=== PATIENT | female | born 1940 | race Caucasian/White ===

== ENCOUNTER 2016-08-15 17:28 | Observation (INO) | payer MEDICARE ==
[2016-08-15] MEDS ORDERED: ASPIRIN 81 MG TABLET, CHEWABLE PO ONE (17:58)
--- NOTE | 2016-08-15 18:06 | ER Document Report ---
ED Medical Screen (RME) - General Chief Complaint: Arrhythmia Stated Complaint: CHEST HEAVINESS Mode of Arrival: Ambulatory Information source: Patient Notes: 75 y/o F presents to ED referred by pcp for generalized weakness. Reports hx of Afib. I have greeted and performed a rapid initial assessment of this patient. A comprehensive ED assessment and evaluation of the patient, analysis of test results and completion of the medical decision making process will be conducted by additional ED providers. TRAVEL OUTSIDE OF THE [place] IN LAST 30 DAYS: No - Related Data Allergies/Adverse Reactions: No Known Allergies Allergy (Verified 08/15/16 17:57) Past Medical History - Social History Chew tobacco use (# tins/day): No Frequency of alcohol use: None Drug Abuse: None - Past Medical History Cardiac Medical History: Reports: Hx Heart Attack - 2004, Hx Hypertension - medication Pulmonary Medical History: Denies: Hx Asthma Neurological Medical History: Denies: Hx Cerebrovascular Accident, Hx Seizures Endocrine Medical History: Reports: Hx Diabetes Mellitus Type 2 Renal/ Medical History: Denies: Hx Peritoneal Dialysis GI Medical History: Reports: Hx Hiatal Hernia. Denies: Hx Hepatitis, Hx Ulcer Infectious Medical History: Denies: Hx Hepatitis Past Surgical History: Reports: Hx Hysterectomy. Denies: Hx Mastectomy, Hx Open Heart Surgery, Hx Pacemaker - Immunizations Hx Diphtheria, Pertussis, Tetanus Vaccination: Yes Physical Exam - Vital signs Vitals: Temp Pulse Resp BP Pulse Ox 98.3 F 72 16 143/106 H 94 08/15/16 17:53 08/15/16 17:53 08/15/16 17:53 08/15/16 17:53 08/15/16 17:53 - General General appearance: Appears well, Alert In distress: None - Respiratory Respiratory status: No respiratory distress - Cardiovascular Pulses: Normal: Radial Normal capillary refill: Yes Course - Vital Signs Vital signs: Temp Pulse Resp BP Pulse Ox 98.3 F 72 16 143/106 H 94 08/15/16 17:53 08/15/16 17:53 08/15/16 17:53 08/15/16 17:53 08/15/16 17:53
[2016-08-15] MEDS ORDERED: DILTIAZEM HCL INJ 25 MG/5 ML VIAL IV ONE ×2 (18:15→19:27)
--- NOTE | 2016-08-15 18:19 | ER Document Report ---
ED Cardiac - General Chief Complaint: Arrhythmia Stated Complaint: CHEST HEAVINESS Time seen by provider: 18:16 Mode of Arrival: Ambulatory Information source: Patient TRAVEL OUTSIDE OF THE [place] IN LAST 30 DAYS: No - HPI Patient complains to provider of: Palpitations Was the onset of pain: Unknown Is the pain a: Chronic problem Quality of pain: None Pain level currently: Denies Chest pain precipitating factors: At Rest Positive cardiac history: Yes Associated symptoms: Lightheaded, Weakness Exacerbated by: Denies Relieved by: Nothing Similar symptoms previously: Yes Recently seen / treated by doctor: Yes Notes: Patient is a 75-year-old female who was sent to the emergency room from her primary care provider's office for complaints of rapid heart rate, patient has a history of atrial fibrillation, states yesterday evening she was feeling quite tired, with body aches and diaphoresis, denies any chest pain or shortness of breath, no nausea, vomiting or diarrhea, today she went to see her primary care provider who noted her to be in A. fib with RVR and center to the emergency room for further evaluation and treatment, patient denies missing any of her medications, she has been cutting back on her caffeine intake, she has not taken any bpdr-vce-tsvafva medications or supplements recently - Related Data Allergies/Adverse Reactions: No Known Allergies Allergy (Verified 08/15/16 17:57) Past Medical History - General Information source: Patient - Social History Smoking Status: Never Smoker Chew tobacco use (# tins/day): No Frequency of alcohol use: None Drug Abuse: None Family History: Reviewed & Not Pertinent Patient has suicidal ideation: No Patient has homicidal ideation: No - Past Medical History Cardiac Medical History: Reports: Hx Heart Attack - 2004, Hx Hypertension - medication Pulmonary Medical History: Denies: Hx Asthma Neurological Medical History: Denies: Hx Cerebrovascular Accident, Hx Seizures Endocrine Medical History: Reports: Hx Diabetes Mellitus Type 2 Renal/ Medical History: Denies: Hx Peritoneal Dialysis GI Medical History: Reports: Hx Hiatal Hernia. Denies: Hx Hepatitis, Hx Ulcer Infectious Medical History: Denies: Hx Hepatitis Past Surgical History: Reports: Hx Hysterectomy. Denies: Hx Mastectomy, Hx Open Heart Surgery, Hx Pacemaker - Immunizations Hx Diphtheria, Pertussis, Tetanus Vaccination: Yes Review of Systems - Review of Systems Constitutional: Weakness EENT: No symptoms reported Cardiovascular: See HPI Respiratory: No symptoms reported Gastrointestinal: No symptoms reported Genitourinary: No symptoms reported Female Genitourinary: No symptoms reported Musculoskeletal: No symptoms reported Skin: No symptoms reported Hematologic/Lymphatic: No symptoms reported Neurological/Psychological: No symptoms reported -: Yes All other systems reviewed and negative Physical Exam - Vital signs Vitals: Temp Pulse Resp BP Pulse Ox 98.3 F 72 16 143/106 H 94 08/15/16 17:53 08/15/16 17:53 08/15/16 17:53 08/15/16 17:53 08/15/16 17:53 Interpretation: Normal - General General appearance: Appears well, Alert - HEENT Head: Normocephalic, Atraumatic Eyes: Normal Pupils: PERRL - Respiratory Respiratory status: No respiratory distress Chest status: Nontender Breath sounds: Normal Chest palpation: Normal - Cardiovascular Rhythm: Irregularly irregular, Tachycardia Heart sounds: Normal auscultation Murmur: No - Abdominal Inspection: Normal Distension: No distension Bowel sounds: Normal Tenderness: Nontender Organomegaly: No organomegaly - Back Back: Normal, Nontender - Extremities General upper extremity: Normal inspection, Nontender, Normal color, Normal ROM , Normal temperature General lower extremity: Normal inspection, Nontender, Normal color, Normal ROM , Normal temperature, Normal weight bearing. No: Tramaine's sign - Neurological Neuro grossly intact: Yes Cognition: Normal Orientation: AAOx4 [place] Coma Scale Eye Opening: Spontaneous Leanne Coma Scale Verbal: Oriented Leanne Coma Scale Motor: Obeys Commands Leanne Coma Scale Total: 15 Speech: Normal Motor strength normal: LUE, RUE, LLE, RLE Sensory: Normal - Psychological Associated symptoms: Normal affect, Normal mood - Skin Skin Temperature: Warm Skin Moisture: Dry Skin Color: Normal Course - Re-evaluation Re-evalutation: 08/15/16 022:59 Patient resting comfortably, has no complaints at present time, she was placed on a Cardizem drip to control atrial fibrillation with RVR, and discussed with the hospitalist who agrees to admit for further evaluation and treatment - Vital Signs Vital signs: Temp Pulse Resp BP Pulse Ox 98.3 F 72 12 147/98 H 95 08/15/16 17:53 08/15/16 17:53 08/16/16 02:30 08/16/16 02:30 08/16/16 02:30 - Laboratory Result Diagrams: 08/15/16 18:15 08/15/16 18:15 Laboratory results interpreted by me: 08/15/16 08/15/16 08/15/16 18:15 18:15 18:15 RDW 15.1 H Seg Neutrophils % 87.3 H Lymphocytes % 8.5 L Glucose 211 H TSH 0.45 L Urine Protein Urine Glucose (UA) Urine Ketones 08/15/16 19:00 RDW Seg Neutrophils % Lymphocytes % Glucose TSH Urine Protein >=500 H Urine Glucose (UA) 50 H Urine Ketones TRACE H - Diagnostic Test Radiology reviewed: Image reviewed, Reports reviewed - EKG Interpretation by Me Rate: Tachycardia Rhythm: A.Fib - Transfer of Care Care transferred to following provider: Dr. Cabrera Critical Care Note - Critical Care Note Total time excluding time spent on procedures (mins): 60 Comments: Patient arrived in atrial fibrillation with RVR at a rate in the 150s, requiring multiple interventions, eventually placed on a Cardizem drip and admitted to hospitalist Discharge - Discharge Clinical Impression: Atrial fibrillation with RVR Condition: Fair Disposition: ADMITTED INPATIENT Admitting Provider: Hospitalist Unit Admitted: [facility]
[2016-08-15 18:37] LABS: ABSOLUTE LYMPHOCYTES (AUTO) 0.6 10^3/uL (0.5-4.7); ABSOLUTE MONOCYTES (AUTO) 0.3 10^3/uL (0.1-1.4); ABSOLUTE NEUT (AUTO) 6.2 10^3/uL (1.7-8.2); BASOPHILS % (AUTO) 0.1 % (0-2); HEMATOCRIT 40.4 % (36.0-47.0); HEMOGLOBIN 13.1 g/dL (12.0-15.5); HGB HCT DIFFERENCE -1.1; LYMPHOCYTES % (AUTO) 8.5 % (13-45); MEAN CORPUSCULAR HEMOGLOBIN 27.5 pg (27.0-33.4); MEAN CORPUSCULAR HGB CONC 32.5 g/dL (32.0-36.0); MEAN CORPUSCULAR VOLUME 85 fl (80-97); MONOCYTES % (AUTO) 4.1 % (3-13); RED BLOOD COUNT 4.77 10^6/uL (3.72-5.28); RED CELL DISTRIBUTION WIDTH 15.1 % (11.5-14.0); SEGMENTED NEUTROPHILS % (AUTO) 87.3 % (42-78); WHITE BLOOD COUNT 7.1 10^3/uL (4.0-10.5)
[2016-08-15 18:41] LABS: ALANINE AMINOTRANSFERASE 26 U/L (9-52); ALBUMIN 4.6 g/dL (3.5-5.0); ALKALINE PHOSPHATASE 103 U/L (38-126); ANION GAP 14 (5-19); ASPARTATE AMINO TRANSFERASE 20 U/L (14-36); BILIRUBIN,TOTAL 1.2 mg/dL (0.2-1.3); BLOOD UREA NITROGEN 19 mg/dL (7-20); CALCIUM 9.7 mg/dL (8.4-10.2); CARBON DIOXIDE 25 mmol/L (22-30); CHLORIDE 99 mmol/L (98-107); CREATINE KINASE 38 U/L (30-135); CREATININE RESULT 0.85 mg/dL (0.52-1.25); GLUCOSE 211 mg/dL (75-110); POTASSIUM 4.3 mmol/L (3.6-5.0); TOTAL PROTEIN 7.9 g/dL (6.3-8.2)
[2016-08-15 18:42] LABS: PROTHROMBIN TIME 13.6 SEC (11.4-15.4)
[2016-08-15] MEDS ORDERED: NORMAL SALINE 1000 ML 1,000 ML IV PRN ×2 (18:48→20:58)
[2016-08-15 18:53] LABS: CREATINE KINASE MB 0.49 ng/mL (<4.55)
[2016-08-15 18:56] LABS: TROPONIN I < 0.012 ng/mL
[2016-08-15 19:21] LABS: APPEARANCE,URINE SLIGHTLY-CLOUDY; BILIRUBIN,URINE NEGATIVE (NEGATIVE); GLUCOSE, URINE 50 mg/dL (NEGATIVE); KETONES,URINE TRACE mg/dL (NEGATIVE); LEUKOCYTE ESTERASE,URINE NEGATIVE (NEGATIVE); NITRITE,URINE NEGATIVE (NEGATIVE); PROTEIN,URINE >=500 mg/dL (NEGATIVE); URINE SPECIFIC GRAVITY 1.023; UROBILINOGEN,URINE NEGATIVE mg/dL (<2.0)
[2016-08-15] MEDS ORDERED: AMIODARONE HCL 200 MG TABLET PO ONE ×2 (20:27→20:28)
--- NOTE | 2016-08-15 21:05 | EKG REPORT ---
SEVERITY:- ABNORMAL ECG - ATRIAL FIBRILLATION LVH WITH SECONDARY REPOLARIZATION ABNORMALITY BORDERLINE PROLONGED QT INTERVAL : Confirmed by: Immanuel Valdivia MD 15-Aug-2016 21:04:42
[2016-08-15] MEDS ORDERED: DILTIAZEM HCL/D5W 125 ML IV PRN (21:36)
[2016-08-15 22:01] LABS: ADD ON TESTING BLD IN LAB ACKNOWLEDGE
[2016-08-15 22:23] LABS: MAGNESIUM 1.6 mg/dL (1.6-2.3)
[2016-08-15] MEDS ORDERED: GLUCAGON,HUMAN RECOMB 1 MG INJ IM PRN (23:14)
[2016-08-15] MEDS ORDERED: DEXTROSE 50%-WATER 25 GM/50 ML DISP.SYRIN IV PRN ×2 (23:14)
[2016-08-15] MEDS ORDERED: DEXTROSE 40% GEL 15 GM TUBE PO PRN ×2 (23:14)
[2016-08-15] MEDS ORDERED: INSULIN LISPRO 100 UNIT/ML 3 ML VIAL SUBCUT PRN (23:14)
[2016-08-15] MEDS ORDERED: ACETAMINOPHEN 325 MG TABLET PO PRN (23:19)
--- NOTE | 2016-08-15 23:37 | PDOC H&P ---
History of Present Illness Admission Date/PCP: 08/15/16 22:31 Estela Bahena Patient complains of: Palpitations History of Present Illness: MEGAN JUNG is a 75 year old female with known atrial fibrillation , compliant with her medications other than having run out of Plavix approximately a week ago, who presents to the emergency room for evaluation of above complaint. Starting approximately 24 hours ago, patient has noted palpitations with a rapid heart rate. Increased fatigue along with mild sweating and body aches. However, no chest pain per se or shortness of breath. No nausea vomiting or diarrhea. Went to her primary care provider's office today. Rapid irregular heartbeat was noted and patient was directed to come to the emergency room for evaluation. Last weekend, she was starting on a tapering dose of prednisone along with Tessalon Perles and antibiotic medication for "bronchitis." She suffered an [place] in 2004. She's had 3 stents placed with the last in 2012. No underlying congestive heart failure. No history of pulmonary embolus or DVT. Her systemic anticoagulation was stopped some time ago by her physician. Patient uncertain as to exactly why this was stopped. Patient has been discussed with emergency room physician who evaluated the patient. Was given her daily dose of amiodarone in the emergency room, but rapid ventricular rate has persisted. Has been started on Cardizem drip by emergency room physician. Laboratory results are listed in [facility] and are reviewed. X-ray summary results are listed below, with full report(s) reviewed. . EKG reviewed. And compared to a tracing from 06/17/2016. Social history/personal habits: . Because does not live with her . Lives with daughter. 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 No use of alcohol tobacco or illicit drugs. Allergies/adverse reactions NKDA. Home medications Home medications initially autopopulated into [facility] may not accurately reflect patient's true medications, dosages, and/or frequencies. Unfortunately, patient uncertain of medications/dosages/frequencies. Order has been entered for staff to contact family, outpatient physician, and/or pharmacy to more accurately determine medications, dosages, and frequencies and to contact physician when that has been accomplished. REVIEW OF SYSTEMS: Constitutional: See history and present illness. Eyes: Wears glasses. ENT: No swallowing problems or complaints. Partial hearing loss. Pulmonary: No current complaints. Cardiovascular: See history and present illness. Gastrointestinal: No current complaints, including nausea or vomiting. Skin: No current complaints, including rashes. Hematologic: Easy bruising. Neurologic: No current complaints, including numbness or tingling. Musculoskeletal: Joint pain from arthritis. Psychiatric: Mild Anxiety depression; denies suicidal or homicidal ideation. Endocrine: No current complaints, including polyuria. Genitourinary: No current complaints, including dysuria. PHYSICAL EXAMINATION: 5 feet 4 inches tall. 73.5 kg. BMI 27.8 kg/m. Temperature 98.3. Blood pressure 151/97. Pulse 125 and slightly irregular. Patient currently on Cardizem drip at 5 mg per hour. 95% saturation on room air. Respirations are 16 and unlabored. Slightly Overweight otherwise well-developed elderly female appearing approximately her stated age. Pleasant awake alert and cooperative. No obvious distress other than perhaps mildly anxious. 2 daughters are present at her side; patient approves. Skin is warm and dry. No grossly obvious evidence of rash in areas of skin examined. No subcutaneous nodules palpated. ENT: Hearing grossly normal to normal conversation. Tongue midline on protrusion pink and slightly tacky. Eyes: No scleral icterus. Pupils equal and reactive to light at 4 mm. Gratis conjunctivae. Neck is supple and nontender to gentle active range of motion and palpation. Midline trachea. No palpable thyroid nodule mass enlargement or tenderness. Lymphatic: No palpable cervical or clavicular nodes. Neck and lymphatic exams limited by patient body habitus. Psychiatric: Reasonable insight into acute and chronic medical issues. Oriented to time location and why here. Lungs: Auscultation reveals clear and equal breath sounds bilaterally. No use of accessory respiratory muscles. Cardiovascular: Heart slightly irregular rate and rhythm, without gallop murmur or rub. No carotid or abdominal aortic bruits. No ankle or pedal edema. Faintly palpable dorsalis pedis pulses. Abdomen: soft, , slightly distended nontender with positive bowel sounds. Unable to adequately evaluate abdomen for masses or organomegaly due to distention. Extremities: Feet are warm and dry. No calf tenderness to compression. No grossly obvious visual evidence of calf swelling. Gentle manipulation of lower extremities fails to reveal any obvious evidence of injury or instability to knees hips or ankles. Neurologic: Moves upper extremities grossly normally. Patellar reflexes absent. Absent Babinski. Light touch is intact at feet. Dorsiflexion and plantarflexion of feet 5 / 5 and symmetric. Past Medical History Cardiac Medical History: Reports: Atrial Fibrillation, Myocardial Infarction - 2005, Hyperlipidema, Hypertension - medication Denies: DVT, Pulmonary Embolism Pulmonary Medical History: Denies: Asthma Neurological Medical History: Denies: Hemorrhagic CVA, Ischemic CVA, Seizures Endocrine Medical History: Reports: Diabetes Mellitus Type 2 Denies: Hyperthyroidism, Hypothyroidism GI Medical History: Reports: Hiatal Hernia Denies: Cirrhosis, Hepatitis Psychiatric Medical History: Reports: Depression, General Anxiety Disorder Denies: Alcohol Dependency, Substance Abuse, Tobacco Dependency Hematology: Reports: Anemia - no current meds Denies: Sickle Cell Disease Infectious Medical History: Denies: Hepatitis B, Hepatitis C Past Surgical History Past Surgical History: Reports: Hysterectomy Denies: Amputation, Mastectomy, Pacemaker Social History Information Source: Patient, Emergency Med Personnel, [facility] Records Lives with: Family Smoking Status: Never Smoker Frequency of Alcohol Use: None Drugs: None - Advance Directive Resuscitation Status: Full Code Surrogate healthcare decision maker:: Children Family History Family History: Reviewed & Not Pertinent Parental Family History Reviewed: Yes Children Family History Reviewed: Yes Sibling(s) Family History Reviewed.: NA Medication/Allergy Home Medications: Acetaminophen/Diphenhydramine [Tylenol Pm Ex-Strength Caplet] 2 each PO QHS 01/01 Alendronate Sodium [Fosamax] 70 mg PO .ONCE A WEEK 12/24/15 Amiodarone HCl [Cordarone 200 mg Tablet] 2 tab PO BID 12/24/15 Atorvastatin Calcium [Lipitor 80 mg Tablet] 80 mg PO DAILY 12/24/15 Besifloxacin HCl [Besivance 0.6% Oph Susp 5 ml] 1 drop OP ASDIR 12/24/15 Clopidogrel Bisulfate [Clopidogrel] 75 mg PO DAILY 12/24/15 Difluprednate [Durezol] 1 drop OP ASDIR 12/24/15 Fluoxetine HCl [Prozac] 40 mg PO DAILY 12/24/15 Gabapentin [Neurontin 100 mg Capsule] 100 mg PO QAM 12/24/15 Hydrocortisone [Proctozone-Hc] 30 gm RC QAM 12/24/15 Lisinopril [Prinivil] 20 mg PO QAM 12/24/15 Lorazepam [Ativan 0.5 mg Tablet] 0.5 mg PO TID PRN 12/24/15 Magnesium Oxide [Magnesium] 400 mg PO BID 12/24/15 Meclizine HCl 25 mg PO BID PRN 12/24/15 Melatonin 5 mg PO QHS PRN 12/24/15 Metformin HCl [Glucophage] 1,000 mg PO BID 12/24/15 Multivitamin [Multivitamins] 1 each PO DAILY 12/24/15 Nepafenac [Ilevro] 1 drop OP ASDIR 12/24/15 Nifedipine [Adalat cc] 30 mg PO QAM 12/24/15 [place]-3 Fatty Acids/Fish Oil [Fish Oil 1,000 Mg Capsule] 8 each PO DAILY Spironolactone [Aldactone 25 mg Tablet] 12.5 mg PO QAM 12/24/15 Tramadol HCl/Acetaminophen [Tramadol-Acetaminophn 37.5-325] 1 each PO .Q4-6H PRN 12/24/15 Cephalexin Monohydrate [Keflex 500 mg Capsule] 500 mg PO BID #14 capsule Allergies/Adverse Reactions: No Known Allergies Allergy (Verified 08/15/16 17:57) Physical Exam Vital Signs: Temp Pulse Resp BP Pulse Ox 98.3 F 72 21 H 151/97 H 94 08/15/16 17:53 08/15/16 17:53 08/15/16 22:33 08/15/16 22:33 08/15/16 22:33 Results Impressions: Chest X-Ray 08/15/16 18:00 IMPRESSION: NO ACUTE CARDIOPULMONARY PROCESS. NO SIGNIFICANT CHANGE FROM PRIOR STUDY. Assessment & Plan - Diagnosis (1) Atrial fibrillation with RVR Is this a current diagnosis for this admission?: YesPlan: Cardizem drip. Serial troponins. Free T3 and free T4, with TSH slightly decreased. Cardiology consult at discretion of daytime hospitalist team. Have encouraged patient to notify staff should her chest pain recur. I have strongly encouraged patient not to get out of bed without notifying staff , to avoid a fall with injury. Knee high SCDs for DVT prophylaxis, along with subcutaneous heparin. Impression and plans were discussed with patient, and daughters, all of whom concur. Time spent in evaluation and management of patient: 53 minutes. (2) Myalgia Is this a current diagnosis for this admission?: YesPlan: States she was told a day or 2 ago that she probably has the flu although no specific test for same. With her myalgias and diaphoresis, will check rapid flu test. (3) Diabetes mellitus type 2 in nonobese Is this a current diagnosis for this admission?: YesPlan: Cardiac diabetic diet. Accu-Cheks with Appropriate sliding scale coverage. Resume home medications as appropriate once these have been determined and reviewed. (4) HTN (hypertension) Qualifiers: Hypertension type: essential hypertension Qualified Code(s): I10 - Essential (primary) hypertension Is this a current diagnosis for this admission?: YesPlan: Resume home medications as appropriate once these have been determined and reviewed. (5) Hyperlipidemia Qualifiers: Hyperlipidemia type: pure hypercholesterolemia Qualified Code(s): E78.00 - Pure hypercholesterolemia, unspecified; E78.0 - Pure hypercholesterolemia Is this a current diagnosis for this admission?: YesPlan: Resume home medications as appropriate once these have been determined and reviewed. - Inpatient Certification Based on my medical assessment, after consideration of the patient's comorbidities, presenting symptoms, or acuity I expect that the services needed warrant INPATIENT care.: Yes I certify that my determination is in accordance with my understanding of Medicare's requirements for reasonable and necessary INPATIENT services [42 CFR 412.3e].: Yes Medical Necessity: Need Close Monitoring Due to Risk of Patient Decompensation, Need For Continuous Telemetry Monitoring, Risk of Complication if Not Cared For in Hospital, Risk of Diagnosis Which Will Require Inpatient Eval/Care/Monitoring Post Hospital Care: D/C or Transfer Summary
[2016-08-16] MEDS: CLOPIDOGREL BISULFATE 75 MG TABLET PO SCH ×2 (00:56→10:01)
[2016-08-16 01:22] LABS: FREE T3 3.16 pg/mL (2.77-5.27)
[2016-08-16] MEDS ORDERED: OSELTAMIVIR PHOSPHATE 75 MG CAPSULE PO ONE (02:30)
[2016-08-16] MEDS: DILTIAZEM HCL/D5W 125 MG/125 ML RTUINJ IV PRN ×2 (07:36→15:01)
[2016-08-16] MEDS ORDERED: LORAZEPAM 0.5 MG TABLET PO PRN (08:11)
[2016-08-16] MEDS ORDERED: TRAMADOL HCL 50 MG TABLET PO PRN (08:12)
[2016-08-16] MEDS ORDERED: (PENDING PHARMACY ID) (Difluprednate [Durezol] 1 DROP) OP SCH (08:15)
[2016-08-16] MEDS ORDERED: BESIFLOXACIN HCL 0.6% OPH SUSP 5 ML BOTTLE OP SCH (08:15)
[2016-08-16] MEDS ORDERED: (PENDING PHARMACY ID) (Nepafenac [Ilevro] 1 DROP) OP SCH (08:15)
[2016-08-16] MEDS: ENOXAPARIN SODIUM INJ 40 MG/0.4 ML DISP.SYRIN SUBCUT SCH (09:05)
[2016-08-16] MEDS ORDERED: LISINOPRIL 10 MG TABLET PO ONE (09:30)
[2016-08-16] MEDS ORDERED: GABAPENTIN 100 MG CAPSULE PO ONE (09:30)
[2016-08-16] MEDS ORDERED: SPIRONOLACTONE 25 MG TABLET PO ONE (09:30)
[2016-08-16] MEDS: METFORMIN HCL 500 MG TABLET PO SCH ×2 (09:56→18:18)
[2016-08-16] MEDS: AMIODARONE HCL 200 MG TABLET PO SCH ×2 (09:58→18:18)
[2016-08-16] MEDS: OSELTAMIVIR PHOSPHATE 75 MG CAPSULE PO SCH ×2 (09:59→18:18)
[2016-08-16] MEDS: MAGNESIUM OXIDE 400 MG TABLET PO SCH ×2 (10:00→18:18)
[2016-08-16] MEDS: FLUOXETINE HCL 20 MG CAPSULE PO SCH (10:00)
[2016-08-16] MEDS ORDERED: CLOPIDOGREL BISULFATE 75 MG TABLET PO SCH (10:00)
[2016-08-16] MEDS: NIFEDIPINE 30 MG TAB.ER.24 PO SCH (11:29)
--- NOTE | 2016-08-16 11:56 | Physician Advisory Note ---
Physician Advisor ProgressNote .: Pursuant to the plan for [facility], I have reviewed the medical record for this patient. Physician Advisor Statement: Afib RVR should be Outpt Obs until they prove they can't be converted shortly to po med & sent home after 1MN. CK
[2016-08-16] MEDS ORDERED: DILTIAZEM HCL 60 MG TABLET PO ONE (13:00)
--- NOTE | 2016-08-16 14:47 | PDOC PROGRESS REPORT ---
Subjective Progress Note for:: 08/16/16 Subjective:: Patient is seen on morning rounds. She is resting comfortably in bed. She denies any chest pain, shortness of breath or dyspnea. She has occasional feelings of palpitations. She has a nonproductive cough at the present time. She denies any nausea, vomiting, or diarrhea. She states she has been sick at home for the last 2 weeks with upper respiratory like symptoms. She was treated with antibiotics by her primary care provider. She was noted here last night to be positive for influenza a. She denies any body aches or fever at the present time. She states she is feeling much better than she did when she came in. Rest of review of systems are negative Physical Exam Vital Signs: Temp Pulse Resp BP Pulse Ox 97.9 F 72 30 H 140/84 H 87 L 08/16/16 12:33 08/15/16 17:53 08/16/16 12:33 08/16/16 12:33 08/16/16 12:33 General appearance: PRESENT: no acute distress, well-developed, well-nourished Head exam: PRESENT: atraumatic, normocephalic Eye exam: PRESENT: conjunctiva pink, EOMI, PERRLA. ABSENT: scleral icterus Ear exam: PRESENT: normal external ear exam Mouth exam: PRESENT: moist, tongue midline Neck exam: ABSENT: carotid bruit, JVD, lymphadenopathy, thyromegaly Respiratory exam: PRESENT: clear to auscultation deo. ABSENT: rales, rhonchi, wheezes Cardiovascular exam: PRESENT: irregular rhythm, +S1, +S2 Pulses: PRESENT: normal dorsalis pedis pul Vascular exam: PRESENT: normal capillary refill GI/Abdominal exam: PRESENT: normal bowel sounds, soft. ABSENT: distended, guarding, mass, organolmegaly, rebound, tenderness Extremities exam: PRESENT: full ROM. ABSENT: calf tenderness, clubbing, pedal edema Neurological exam: PRESENT: alert, awake, oriented to person, oriented to place , oriented to time, oriented to situation, CN II-XII grossly intact. ABSENT: motor sensory deficit Psychiatric exam: PRESENT: appropriate affect, normal mood. ABSENT: homicidal ideation, suicidal ideation Skin exam: PRESENT: dry, intact, warm. ABSENT: cyanosis, rash Results Laboratory Results: 08/16/16 00:44 Free T4 1.08 Free T3 pg/mL 3.16 08/16/16 08/16/16 00:44 06:32 Troponin I < 0.012 < 0.012 Impressions: Chest X-Ray 08/15/16 18:00 IMPRESSION: NO ACUTE CARDIOPULMONARY PROCESS. NO SIGNIFICANT CHANGE FROM PRIOR STUDY. Assessment & Plan - Diagnosis (1) Atrial fibrillation with RVR Is this a current diagnosis for this admission?: YesPlan: Patient is presently rate controlled on Cardizem drip. She takes amiodarone orally. She is a known history of atrial fibrillation. We will start Cardizem by mouth and transitioning her off the IV Cardizem. (2) Influenza A Is this a current diagnosis for this admission?: YesPlan: She was started on Tamiflu by ER provider. It's unclear when her symptoms actually began low however. (3) Diabetes mellitus type 2 in nonobese Is this a current diagnosis for this admission?: YesPlan: Continue home medication and sliding scale coverage (4) CAD (coronary artery disease) Qualifiers: Coronary Disease-Associated Artery/Lesion type: telida artery [place] vs. transplanted heart: telida heart Associated angina: without angina Qualified Code(s): I25.10 - Atherosclerotic heart disease of telida coronary artery without angina pectoris Is this a current diagnosis for this admission?: YesPlan: Continue Plavix and home medications. (5) Myalgia Is this a current diagnosis for this admission?: YesPlan: Secondary to influenza a (6) HTN (hypertension) Qualifiers: Hypertension type: essential hypertension Qualified Code(s): I10 - Essential (primary) hypertension Is this a current diagnosis for this admission?: YesPlan: Continue home medication. (7) Hyperlipidemia Qualifiers: Hyperlipidemia type: pure hypercholesterolemia Qualified Code(s): E78.00 - Pure hypercholesterolemia, unspecified; E78.0 - Pure hypercholesterolemia Is this a current diagnosis for this admission?: YesPlan: Continue statin - Time Time Spent with patient: 25-34 minutes Critical Time spent with patient: 15-24 minutes Medications reviewed and adjusted accordingly: Yes Anticipated discharge: Home Within: within 24 hours
[2016-08-16] MEDS: DILTIAZEM HCL 60 MG TABLET PO SCH (18:20)
[2016-08-16] MEDS ORDERED: ATORVASTATIN CALCIUM 80 MG TABLET PO SCH (22:00)
[2016-08-17] MEDS: DILTIAZEM HCL 60 MG TABLET PO SCH ×3 (00:08→11:59)
[2016-08-17] MEDS ORDERED: ONDANSETRON HCL INJ/PF 4 MG/2 ML SDV IV PRN (02:38)
[2016-08-17] MEDS ORDERED: LISINOPRIL 10 MG TABLET PO SCH (08:00)
[2016-08-17] MEDS ORDERED: (PENDING PHARMACY ID) (Lisinopril [Prinivil] 20 MG) PO SCH (08:00)
[2016-08-17] MEDS ORDERED: SPIRONOLACTONE 25 MG TABLET PO SCH (08:00)
[2016-08-17] MEDS ORDERED: GABAPENTIN 100 MG CAPSULE PO SCH (08:00)
--- NOTE | 2016-08-17 08:30 | EKG REPORT ---
SEVERITY:- ABNORMAL ECG - ECTOPIC ATRIAL RHYTHM LEFT AXIS DEVIATION LVH WITH SECONDARY REPOLARIZATION ABNORMALITY PROLONGED QT INTERVAL : Confirmed by: Immanuel Valdivia MD 17-Aug-2016 08:30:21
[2016-08-17] MEDS: ENOXAPARIN SODIUM INJ 40 MG/0.4 ML DISP.SYRIN SUBCUT SCH (09:39)
[2016-08-17] MEDS: NIFEDIPINE 30 MG TAB.ER.24 PO SCH (10:41)
[2016-08-17] MEDS: METFORMIN HCL 500 MG TABLET PO SCH (10:41)
[2016-08-17] MEDS: FLUOXETINE HCL 20 MG CAPSULE PO SCH (10:42)
[2016-08-17] MEDS: AMIODARONE HCL 200 MG TABLET PO SCH (10:42)
[2016-08-17] MEDS: MAGNESIUM OXIDE 400 MG TABLET PO SCH (10:43)
[2016-08-17 12:13] VITALS: BP 128/92
--- NOTE | 2016-08-17 17:32 | PDOC DISCHARGE SUMMARY ---
General - Admit/Disc Date/PCP Admission Date/Primary Care Provider: 08/15/16 23:19 RAIN MARS PA-C Discharge Date: 08/17/16 - Discharge Diagnosis (1) Atrial fibrillation with RVR Is this a current diagnosis for this admission?: YesSummary: Patient is now rate controlled. She has a history of chronic A. fib. She is on Plavix and aspirin. (2) Influenza A Is this a current diagnosis for this admission?: YesSummary: Patient symptoms began over 5 days ago we'll therefore stop her Tamiflu at this time. (3) Diabetes mellitus type 2 in nonobese Is this a current diagnosis for this admission?: YesSummary: Continue current medications (4) CAD (coronary artery disease) Is this a current diagnosis for this admission?: YesSummary: Continue current home meds (5) Myalgia Is this a current diagnosis for this admission?: YesSummary: Resolved (6) HTN (hypertension) Is this a current diagnosis for this admission?: YesSummary: Continue current medications (7) Hyperlipidemia Is this a current diagnosis for this admission?: YesSummary: Continue statin - Additional Information Resuscitation Status: Full Code Discharge Diet: Cardiac Discharge Activity: Activity As Tolerated, Balance Activity w/Rest Home Medications: Atorvastatin Calcium [Lipitor 80 mg Tablet] 80 mg PO DAILY 08/16/16 Benzonatate [Tessalon Perle 100 mg Capsule] 100 mg PO Q8HP PRN 08/16/16 Hydroxyzine HCl [Atarax 10 mg Tablet] 10 mg PO Q6HP PRN 08/16/16 Nitroglycerin [Nitrostat] 0.4 mg SL ASDIR PRN 08/16/16 Prednisone [Deltasone 10 mg Tablet] 10 mg PO Q2D 08/16/16 Acetaminophen [Tylenol 325 mg Tablet] 650 mg PO Q4HP PRN tablet 08/17/16 Amiodarone HCl [Cordarone 200 mg Tablet] 400 mg PO BID tablet 08/17/16 Besifloxacin HCl [Besivance 0.6% Oph Susp 5 ml] 1 drop OP .CLARIFY bottle 08/17 Clopidogrel Bisulfate [Plavix 75 mg Tablet] 75 mg PO DAILY tablet 08/17/16 Difluprednate [Durezol] 1 drop OP .CLARIFY 08/17/16 Fluoxetine HCl [Prozac 20 mg Capsule] 40 mg PO DAILY capsule 08/17/16 Gabapentin [Neurontin 100 mg Capsule] 100 mg PO QAM capsule 08/17/16 Lisinopril [Prinivil 10 mg Tablet] 20 mg PO QAM tablet 08/17/16 Nepafenac [Ilevro] 1 drop OP .CLARIFY 08/17/16 Nifedipine [Procardia XL 30 mg Tablet] 30 mg PO DAILY tab.er.24 08/17/16 Spironolactone [Aldactone 25 mg Tablet] 12.5 mg PO QAM tablet 08/17/16 History of Present Illness Patient complains of: Fever, and palpitations History of Present Illness: MEGAN JUNG is a 75 year old female with known chronic atrial fibrillation compliant with her medications since the emergency room with increasing palpitations and tachycardia. She was referred to the ER by her primary care provider. She was found to be in nature fibrillation with a heart rate of 130. She was started on Cardizem IV. She was referred to the hospitalist service for admission. She complained of productive cough myalgias and chills for the last 1 week. She had been given azithromycin by her primary care provider she did not have of her symptoms. Influenza swab in the emergency room because showed positive for influenza A. Hospital Course Hospital Course: Patient was admitted to [facility] on telemetry. She was started on oral Cardizem she continued to be rate controlled. IV Cardizem was discontinued. She was started on Tamiflu in the ER. Patient no longer has any symptoms. Her symptoms and she started the week before will therefore discontinue the Tamiflu at this time. Patient feels ready for discharge she'll continue her oral amiodarone and follow-up with her dietetics professor Dr. Bahena for any further problems.. Physical Exam Vital Signs: Temp Pulse Resp BP Pulse Ox 97.9 F 56 L 16 128/92 H 98 08/17/16 12:12 08/17/16 12:12 08/17/16 12:12 08/17/16 12:12 08/17/16 12:12 Intake & Output 08/16/16 08/17/16 08/18/16 06:59 06:59 06:59 Intake Total 125 Output Total 100 Balance 25 Weight 75.5 kg General appearance: PRESENT: no acute distress, well-developed, well-nourished Head exam: PRESENT: atraumatic, normocephalic Eye exam: PRESENT: conjunctiva pink, EOMI, PERRLA. ABSENT: scleral icterus Ear exam: PRESENT: normal external ear exam Mouth exam: PRESENT: moist, tongue midline Respiratory exam: PRESENT: clear to auscultation deo. ABSENT: rales, rhonchi, wheezes Cardiovascular exam: PRESENT: irregular rhythm, +S1, +S2 Pulses: PRESENT: normal dorsalis pedis pul Vascular exam: PRESENT: normal capillary refill GI/Abdominal exam: PRESENT: normal bowel sounds, soft. ABSENT: distended, guarding, mass, organolmegaly, rebound, tenderness Rectal exam: PRESENT: deferred Extremities exam: PRESENT: full ROM. ABSENT: calf tenderness, clubbing, pedal edema Neurological exam: PRESENT: alert, awake, oriented to person, oriented to place , oriented to time, oriented to situation, CN II-XII grossly intact. ABSENT: motor sensory deficit Results Laboratory Results: 08/16/16 08/16/16 00:44 06:32 Troponin I < 0.012 < 0.012 Impressions: Chest X-Ray 08/15/16 18:00 IMPRESSION: NO ACUTE CARDIOPULMONARY PROCESS. NO SIGNIFICANT CHANGE FROM PRIOR STUDY. Qualifiers PATEINT BEING DISCHARGED WITH ANY OF THE FOLLOWING DIAGNOSIS?: No Plan Discharge Plan: Home with family Time Spent: Less than 30 Minutes
== END 2016-08-17 12:45 | disposition home or self-care (01) ==
LOC: ER 17:28 → EH 22:31 → UNDOADMIN 22:31 → EH 23:19 → INTOOBSV 23:19 → 3S 08-16 18:50
PROVIDERS: ADMIT Family Medicine; ATTEND Family Medicine
PROC: 3E033GC Introduction of Other Therapeutic Substance into Peripheral Vein, Percutaneous Approach (ICD-10-PCS; principal; 2016-08-15)
PROC: 3E033GC Introduction of Other Therapeutic Substance into Peripheral Vein, Percutaneous Approach (ICD-10-PCS; 2016-08-15)
DX: I48.2 Chronic atrial fibrillation (principal); J11.1 Influenza due to unidentified influenza virus with other respiratory manifestations; E11.9 Type 2 diabetes mellitus without complications; I25.10 Atherosclerotic heart disease of native coronary artery without angina pectoris; M79.1 Myalgia; I10 Essential (primary) hypertension; E78.5 Hyperlipidemia, unspecified; I25.2 Old myocardial infarction; Z95.5 Presence of coronary angioplasty implant and graft
CPT/HCPCS: 93005 ×2; 96376; 99291; 96374; 36415 ×2; 84439; 82553; 82962 ×2; 82550; 83735; 84443; 85025; 85610; 85730; 80053; 81001; 84484 ×2; 84481; 87804; 71020; 93010 ×2; G0378 ×2; A9270 ×25; J3490 ×3; J1650 ×2; J2405; J7030; J1815

== ENCOUNTER → 2016-09-06 | Outpatient (CLI) | payer MEDICARE ==
[2016-09-06 19:14] LABS: ABSOLUTE EOSINOPHILS # (AUTO) 0.1 10^3/uL (0.0-0.6); ABSOLUTE LYMPHOCYTES (AUTO) 1.5 10^3/uL (0.5-4.7); ABSOLUTE MONOCYTES (AUTO) 0.7 10^3/uL (0.1-1.4); ABSOLUTE NEUT (AUTO) 2.8 10^3/uL (1.7-8.2); BASOPHILS % (AUTO) 0.6 % (0-2); EOSINOPHILS % (AUTO) 2.4 % (0-6); HEMATOCRIT 38.2 % (36.0-47.0); HEMOGLOBIN 12.4 g/dL (12.0-15.5); LYMPHOCYTES % (AUTO) 29.4 % (13-45); MEAN CORPUSCULAR HEMOGLOBIN 27.5 pg (27.0-33.4); MEAN CORPUSCULAR HGB CONC 32.4 g/dL (32.0-36.0); MEAN CORPUSCULAR VOLUME 85 fl (80-97); MONOCYTES % (AUTO) 13.2 % (3-13); RED BLOOD COUNT 4.51 10^6/uL (3.72-5.28); RED CELL DISTRIBUTION WIDTH 15.9 % (11.5-14.0); SEGMENTED NEUTROPHILS % (AUTO) 54.4 % (42-78); WHITE BLOOD COUNT 5.1 10^3/uL (4.0-10.5)
== END ==
LOC: RAD 18:42
PROVIDERS: ATTEND Nurse Practitioner Acute Care
DX: R05 Cough (principal)
CPT/HCPCS: 36415; 71020; 85025

== ENCOUNTER 2016-10-25 08:02 | Day surgery (SDC) | payer MEDICARE, OTHER ==
[2016-10-25] MEDS ORDERED: ONDANSETRON HCL INJ/PF 4 MG/2 ML SDV ONE (08:07)
[2016-10-25] MEDS ORDERED: NALOXONE HCL INJ/PF 0.4 MG/1 ML SDV ONE (08:07)
[2016-10-25] MEDS ORDERED: DIPHENHYDRAMINE HCL 50 MG/ML VIAL ONE (08:07)
[2016-10-25] MEDS ORDERED: EPINEPHRINE INJ 1 MG/10 ML DISP.SYRIN ONE (08:08)
[2016-10-25] MEDS ORDERED: GLUCAGON,HUMAN RECOMB 1 MG INJ ONE (08:08)
[2016-10-25] MEDS ORDERED: FENTANYL CITRATE INJ/PF 100 MCG/2 ML AMPUL ONE (08:08)
[2016-10-25] MEDS ORDERED: FLUMAZENIL INJ 0.5 MG/5 ML VIAL IV ONE (08:08)
[2016-10-25] MEDS: MIDAZOLAM 2 MG/2 ML INJ ONE ×2 (08:34→08:38)
--- NOTE | 2016-10-25 08:47 | Operative Report ---
Operative Report DATE OF SURGERY: 10/25/16 Operative Report: The risks benefits and alternatives of the procedure explained to the patient in detail and informed consent is obtained that GIF Olympus video scope was inserted into the patient's mouth and hypopharynx the esophagus is identified intubated and insufflated the scope was then advanced through the esophagus stomach and duodenum retroflexion maneuver is done the esophagus stomach and first and second portions of the duodenum examined PREOPERATIVE DIAGNOSIS: Nausea vomiting POSTOPERATIVE DIAGNOSIS: Hiatal hernia. Gastritis. Gastric polyp status post biopsy OPERATION: EGD with biopsy SURGEON: STEVE MERINO ANESTHESIA: Moderate Sedation - 3 mg of Versed, 25 g of fentanyl. Conscious sedation monitoring time 30 minutes. TISSUE REMOVED OR ALTERED: Gastric specimens is noted COMPLICATIONS: None. ESTIMATED BLOOD LOSS: none. INTRAOPERATIVE FINDINGS: Esophagus normal. Gastric polyp. Gastritis. Hiatal hernia. First and second portions of the duodenum normal PROCEDURE: Patient tolerated procedure well. No immediate postprocedure complications are noted. Patient is discharged in good condition. Discharge date 10/25/2016. Discharge diet: Regular. Discharge activity: Regular. 2-3 week follow-up to discuss findings. We'll await on biopsies. Patient is instructed to call the office or proceed to the emergency room should there be any further problems or questions.
[2016-10-25 09:52] VITALS: BP 140/62
== END 2016-10-25 09:55 | disposition home or self-care (01) ==
LOC: END 08:02
PROVIDERS: ATTEND Internal Medicine Gastroenterology
PROC: 0DB68ZX Excision of Stomach, Via Natural or Artificial Opening Endoscopic, Diagnostic (ICD-10-PCS; principal; 2016-10-25 08:30)
DX: R10.13 Epigastric pain (principal); K29.50 Unspecified chronic gastritis without bleeding; K31.7 Polyp of stomach and duodenum; K44.9 Diaphragmatic hernia without obstruction or gangrene; I10 Essential (primary) hypertension; I48.91 Unspecified atrial fibrillation; G47.30 Sleep apnea, unspecified; E66.3 Overweight; F90.0 Attention-deficit hyperactivity disorder, predominantly inattentive type; F50.81 Binge eating disorder; Z79.82 Long term (current) use of aspirin; Z79.899 Other long term (current) drug therapy; Z79.84 Long term (current) use of oral hypoglycemic drugs; Z79.01 Long term (current) use of anticoagulants
CPT/HCPCS: 43239; 82962; 88342 ×2; 88305 ×2; J2250; J3010; J0171; J1200; J1610; J2310; J2405; J3490

== ENCOUNTER → 2016-11-23 | Outpatient (CLI) | payer MEDICARE ==
--- NOTE | 2016-11-24 16:22 | RADIOLOGY REPORT (SQ) ---
EXAM DESCRIPTION: BARIUM SWALLOW ESOPHAGUS COMPLETED DATE/TIME: 11/23/2016 10:42 am REASON FOR STUDY: DYSPHAGIA, UNSPECIFIED TYPE R13.10 DYSPHAGIA, UNSPECIFIED COMPARISON: None. TECHNIQUE: Under fluoroscopic guidance, patient ingested effervescent granules followed by thick and thin barium. Fluoroscopic spot images and routine radiographic images acquired and stored on PACS. 12 MM BARIUM TABLET GIVEN: Yes. No significant delay in passage. LIMITATIONS: None. FLUOROSCOPY TIME: FLUORO TIME: 0.6 minutes 13 fluoroscopy images saved to PACS. FINDINGS: NEUROMUSCULAR COORDINATION OF SWALLOW: Normal. No aspiration. ESOPHAGEAL MOTILITY: Normal primary peristalsis. Mild tertiary contractions noted mid to distal esop hagus suggesting mild dysmotility. No esophageal spasm. ESOPHAGEAL MUCOSA: Moderately prominent mucosal folds are identified in the mid and distal esophagus . No masses or ulceration. GASTRO-ESOPHAGEAL JUNCTION: Small sliding hiatal hernia is identified with reflux extending to the l evel of the upper 1/3 of the esophagus. NON-GI TRACT STRUCTURES: No significant finding. OTHER: No other significant finding. IMPRESSION: 1. MILD DYSMOTILITY. 2. MILD ESOPHAGITIS. 3. SMALL SLIDING HIATAL HERNIA. 4. SEVER GASTROESOPHAGEAL REFLUX. COMMENT: Quality ID [id number]: Final reports for procedures using fluoroscopy that document radiation exp osure indices, or exposure time and number of fluorographic images (if radiation exposure indices are not available) TECHNICAL DOCUMENTATION: JOB ID: [id number] [employer]- All Rights Reserved
== END ==
LOC: RAD 07:55
PROVIDERS: ATTEND Internal Medicine Gastroenterology
DX: R13.10 Dysphagia, unspecified (principal); K21.0 Gastro-esophageal reflux disease with esophagitis; K44.9 Diaphragmatic hernia without obstruction or gangrene
CPT/HCPCS: 74220

== ENCOUNTER 2017-05-04 08:02 | Day surgery (SDC) | payer MEDICARE ==
[~2017-05-04 08:02] MED LIST: CHONDR SU A NA/HYALUR INTRAOC KIT (SURGICARE) ONE; EPINEPHRINE INJ/PF 1 MG/1 ML AMPULE ONE; KETOROLAC TROMETHAMINE 0.45% 4 DROP/0.4 ML DROPERETTE OD PRN; LIDOCAINE 1% INJ-PF (10 MG/ML) 30 ML SDV ONE
[2017-05-04] MEDS: TETRACAINE HCL 0.5% OPH SOLN 2 ML OD PRN ×4 (08:17→08:58)
[2017-05-04] MEDS: TROPICAMIDE 1% OPH SOLN 3 ML OD PRN ×3 (08:18→08:40)
[2017-05-04] MEDS: CYCLOPENTOLATE 0.2%/PHENYLEPHRINE 1% OPH SOLN 2 ML OD PRN ×3 (08:18→08:40)
[2017-05-04] MEDS: BESIFLOXACIN HCL 0.6% OPH SUSP 5 ML BOTTLE OD PRN ×3 (08:19→09:11)
[2017-05-04] MEDS ORDERED: MIDAZOLAM 2 MG/2 ML INJ ONE (08:36)
[2017-05-04] MEDS ORDERED: FENTANYL CITRATE INJ/PF 100 MCG/2 ML AMPUL ONE (08:37)
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
--- NOTE | 2017-05-04 19:34 | [facility] OPERATIVE REPORT E ---
[facility] Operative Report NAME: MEGAN JUNG AGE: 76Y DATE OF SURGERY: 05/04/2017 ROOM: PREOPERATIVE DIAGNOSIS: Cataract, right eye. POSTOPERATIVE DIAGNOSIS: Cataract, right eye. OPERATION: Cataract extraction with intraocular lens implant of the right eye. SURGEON: CHEL VAIL M.D. ANESTHESIA: Topical. PROCEDURE: After obtaining appropriate consent, the patient's right eye was prepped and draped in sterile fashion as well as the surgeon in a sterile manner and cataract surgery was started. First a paracentesis blade was used to make a small side-port incision. Viscoelastic was used to inflate the anterior chamber. Next a 2.4 mm incision was made with the paracentesis blade. A continuous capsulorrhexis incision was made using a cystotome and Utrata forceps. Following this hydrodissection was carried out to make the lens fully loose and mobile and it was rotated 90 degrees. Following this, a advaij-mmp-ywphonh technique was used to phacoemulsify the lens with a CDE of 24.37. The remaining cortex was removed with irrigation/aspiration. Provisc was instilled into the capsular bag to inflate the bag. A SN60WF, 18.5 diopter lens was placed. The remaining viscoelastic material was removed with irrigation/aspiration. Following this, a 10-0 nylon suture was used to close the incision and it was found to be watertight. Vigamox was instilled in the eye and a protective shield was placed over the eye. The patient returned to the postoperative recovery in stable condition. DICTATING PHYSICIAN: CHEL VAIL M.D. [id number] PHY#: [id number] 1911 ID: [id number] JOB#: [id number] ACCT: [id number] cc:CHEL VAIL M.D. >
== END 2017-05-04 09:50 | disposition home or self-care (01) ==
LOC: SC 08:02
PROVIDERS: ATTEND Internal Medicine
PROC: 08RJ3JZ Replacement of Right Lens with Synthetic Substitute, Percutaneous Approach (ICD-10-PCS; principal; 2017-05-04 09:00)
DX: H25.11 Age-related nuclear cataract, right eye (principal); Z96.1 Presence of intraocular lens; E11.9 Type 2 diabetes mellitus without complications; I10 Essential (primary) hypertension; E78.00 Pure hypercholesterolemia, unspecified; D64.9 Anemia, unspecified; I48.91 Unspecified atrial fibrillation; G62.9 Polyneuropathy, unspecified; G25.0 Essential tremor; Z79.899 Other long term (current) drug therapy; Z79.84 Long term (current) use of oral hypoglycemic drugs; Z79.01 Long term (current) use of anticoagulants
CPT/HCPCS: 66984; 82962; V2632; J2250; J3490 ×2; A9270; J0171; J3010; 142

== ENCOUNTER 2017-07-14 06:34 | Day surgery (SDC) | payer MEDICARE ==
[2017-07-14] MEDS ORDERED: PROPOFOL INJ 200 MG/20 ML VIAL IV ONE (08:25)
[2017-07-14] MEDS ORDERED: DIPHENHYDRAMINE HCL 50 MG/ML VIAL IV PRN (09:17)
[2017-07-14] MEDS ORDERED: OXYCODONE-ACETAMINOPHEN 5-325 MG TABLET PO PRN ×2 (09:17)
[2017-07-14] MEDS ORDERED: MORPHINE SULFATE 10 MG/ML INJ IV PRN (09:17)
[2017-07-14] MEDS ORDERED: MEPERIDINE HCL/PF INJ 25 MG/1 ML DISP.SYRIN IV PRN (09:17)
[2017-07-14] MEDS ORDERED: FENTANYL CITRATE INJ/PF 100 MCG/2 ML AMPUL IV PRN ×3 (09:17)
[2017-07-14] MEDS ORDERED: PROMETHAZINE HCL INJ 25 MG/1 ML VIAL IV PRN ×2 (09:17)
--- NOTE | 2017-07-14 11:19 | Operative Report ---
Operative Report DATE OF SURGERY: 07/14/17 Operative Report: The risks, benefits and alternatives of the procedure including risks of bleeding, perforation requiring surgery are explained to the patient in detail and informed consent was obtained. Patient is taken back to the operating room and placed in the left, lateral decubital position. Timeout was called. Propofol medications administered. A rectal examination is done which did not reveal any masses, tears or fissures. An Olympus videoscope was inserted into the patient's rectum. It is carefully advanced all the way to the cecum. The cecum was identified by the usual anatomical landmarks including the ileocecal valve as well as the appendiceal office. Photodocumentation is obtained. The scope was then sequentially pulled back via the various segments of the colon including the ascending colon, hepatic flexure, transverse colon, splenic flexure, descending colon finding to the rectosigmoid portions of the colon. Retroflexion maneuver is performed. PREOPERATIVE DIAGNOSIS: Colorectal cancer screening POSTOPERATIVE DIAGNOSIS: Normal screening colonoscopy OPERATION: Diagnostic colonoscopy SURGEON: STEVE MERINO ANESTHESIA: LMAC TISSUE REMOVED OR ALTERED: None. COMPLICATIONS: None. ESTIMATED BLOOD LOSS: None. INTRAOPERATIVE FINDINGS: Normal screening colonoscopy. PROCEDURE: Patient tolerated procedure well. No immediate postprocedure complications are noted. Patient discharged in good condition. Discharge date 07/14/2017. Discharge diet: Regular. Discharge activity: Regular. 2-3 week follow-up to discuss findings. Patient is instructed to call the office or proceed to the emergency room should there be any further problems or questions. 10 year surveillance colonoscopy.
[2017-07-14 12:35] VITALS: BP 136/71
== END 2017-07-14 11:00 | disposition home or self-care (01) ==
LOC: OROUT 06:34
PROVIDERS: ATTEND Internal Medicine Gastroenterology
PROC: 0DJD8ZZ Inspection of Lower Intestinal Tract, Via Natural or Artificial Opening Endoscopic (ICD-10-PCS; principal; 2017-07-14 09:00)
DX: K92.1 Melena (principal); I10 Essential (primary) hypertension; R19.4 Change in bowel habit; Z79.899 Other long term (current) drug therapy; Z79.84 Long term (current) use of oral hypoglycemic drugs; Z79.82 Long term (current) use of aspirin; Z79.01 Long term (current) use of anticoagulants
CPT/HCPCS: 45378; 82962; J2704; 811

== ENCOUNTER 2017-08-31 17:39 | Emergency (ER) | payer MEDICARE ==
--- NOTE | 2017-08-31 18:06 | ER Document Report ---
ED General - General Chief Complaint: Weakness Stated Complaint: WEAKNESS Time Seen by Provider: 08/31/17 18:04 Mode of Arrival: Ambulatory Information source: Patient, Relative Notes: 77-year-old female with a history of coronary artery disease, atrial fibrillation, essential tremor, diabetes, hypertension presents from urgent care after physician was concerned for left sided facial droop. Daughter is at the bedside and states that she last saw her mother normal this morning. Patient herself is unaware of when facial droop started. She also reports increasing generalized weakness that started 4 days ago. She reports that she has had a poor appetite and decreased activity. Daughter reports that patient was normal yesterday and was able to participate in her daily activities and went shopping without any issue.They decided to go to urgent care because the patient was complaining of increasing shortness of breath. She does admit that she has no p.o. intake today. She denies any recent admissions. She was seen by her dehydrogenation operator yesterday and had an increase of her Coumadin to 6 mg daily. Currently she is denying fever,headache, visual changes, chest pain, abdominal pain, diarrhea, dysuria. She does report associated nausea last night without vomiting and an intermittent dry cough. TRAVEL OUTSIDE OF THE [place] IN LAST 30 DAYS: No - HPI Onset: This morning Onset/Duration: Gradual Quality of pain: No pain Associated symptoms: Nonproductive cough, Nausea. denies: Chest pain, Diarrhea , Fever, Headache, Vomiting Exacerbated by: Movement Relieved by: Denies Similar symptoms previously: Yes Recently seen / treated by doctor: Yes - today urgent care yesterday dehydrogenation operator - Related Data Allergies/Adverse Reactions: No Known Allergies Allergy (Verified 08/31/17 17:41) Past Medical History - General Information source: Patient, Relative - Social History Smoking Status: Never Smoker Frequency of alcohol use: None Drug Abuse: None Lives with: Family Family History: Reviewed & Not Pertinent Patient has suicidal ideation: No Patient has homicidal ideation: No - Past Medical History Cardiac Medical History: Reports: Hx Atrial Fibrillation, Hx Coronary Artery Disease - cardiac stents x3, Hx Heart Attack - 2005, Hx Hypercholesterolemia, Hx Hypertension - medication Denies: Hx DVT, Hx Pulmonary Embolism Pulmonary Medical History: Denies: Hx Asthma, Hx Bronchitis, Hx COPD, Hx Pneumonia Neurological Medical History: Denies: Hx Cerebrovascular Accident, Hx Seizures Endocrine Medical History: Reports: Hx Diabetes Mellitus Type 2. Denies: Hx Hyperthyroidism, Hx Hypothyroidism Renal/ Medical History: Denies: Hx Peritoneal Dialysis GI Medical History: Reports: Hx Hiatal Hernia. Denies: Hx Cirrhosis, Hx Hepatitis, Hx Ulcer Musculoskeltal Medical History: Reports Hx Arthritis Psychiatric Medical History: Reports: Hx Depression Infectious Medical History: Denies: Hx Hepatitis Past Surgical History: Reports: Hx Cardiac Catheterization, Hx Coronary Stent, Hx Hysterectomy. Denies: Hx Mastectomy, Hx Open Heart Surgery, Hx Pacemaker - Immunizations Hx Diphtheria, Pertussis, Tetanus Vaccination: No Hx Pneumococcal Vaccination: 06/19/07 Review of Systems - Review of Systems Constitutional: See HPI, Weakness Cardiovascular: See HPI Respiratory: See HPI Gastrointestinal: Nausea Genitourinary: denies: Dysuria Skin: denies: No symptoms reported Neurological/Psychological: Weakness, Tremor Physical Exam - Vital signs Vitals: Pulse Ox 95 08/31/17 17:41 Interpretation: Normal, Hypertensive. No: Febrile - General General appearance: Appears well, Alert In distress: None - HEENT Head: Normocephalic, Atraumatic Eyes: Normal Conjunctiva: Normal Cornea: Normal Extraocular movements intact: Yes Pupils: PERRL Mucous membranes: Dry Pharynx: Normal Neck: No: Carotid bruit - Cardiovascular Rhythm: Irregularly irregular Heart sounds: Normal auscultation Murmur: No Pulses: Normal: Radial, Dorsalis pedis - Abdominal Inspection: Normal Distension: No distension Bowel sounds: Normal Tenderness: Nontender Organomegaly: No organomegaly - Extremities General upper extremity: Normal inspection, Nontender, Normal color, Normal ROM , Normal temperature. No: Edema General lower extremity: Normal inspection, Nontender, Normal color, Normal ROM , Normal temperature, Normal weight bearing. No: Edema, Tramaine's sign - Neurological Neuro grossly intact: Yes Cognition: Normal Orientation: AAOx4 Leanne Coma Scale Eye Opening: Spontaneous Bates Coma Scale Verbal: Oriented Bates Coma Scale Motor: Obeys Commands Bates Coma Scale Total: 15 Speech: Normal Cranial nerves: Normal Cerebellar coordination: Normal Motor strength normal: LUE, RUE, LLE, RLE Additional motor exam normals: Equal manager psychology Sensory: Normal - Psychological Associated symptoms: Normal affect, Normal mood - Skin Skin Temperature: Warm Skin Moisture: Dry Skin Color: Normal Course - Re-evaluation Re-evalutation: 08/31/17 19:37 Bedside ultrasound of the heart was performed and showed no pericardial effusion. There is decreased contractility poor global function whch is expected in patient with CHF. IVC is normal size and has normal phasicity. No B -lines seen on lung ultrasound to suggest fluid overload. 08/31/17 19:59 Orthostatic vital signs are within normal limits 08/31/17 21:47 On reexamination patient states that she is feeling better. She is alert awake and tolerating fluids.Daughter agrees that patient looks better after a small fluid bolus. Significant findings included an urinalysis that shows leukoesterase. 08/31/17 22:24 77-year-old female presents with her daughter from urgent care with concern of facial droop. Upon arrival vitals are reviewed and within normal limits. NIH was performed immediately and scored 0 although the daughter was persistent that her mother had a facial droop of the left side, which would make the scre a 1. I do not appreciate this on my exam. She is not a tpa candidate. Significant findings include an elevated BNP, BUN. CBC showed no evidence of anemia, leukocytosis. CMP showed no electrolyte abnormalities. Patient found to have a urinary tract infection and was given Bactrim for this. Patient is currently on anticoagulation Coumadin, for atrial fibrillation. Her dehydrogenation operator recently saw her and increased her Coumadin to 6 mg a day. She is not currently therapeutic. I did discuss at length that this "facial droop" that occurred prior to arrival could be a TIA and that if it were to recur the patient should be brought back immediately to the emergency department. Patient is not interested in admission at this time and both daughter and her feel comfortable with discharge home. Laboratory 08/31/17 08/31/17 08/31/17 18:15 18:15 18:15 WBC 5.9 RBC 4.17 Hgb 11.7 L Hct 36.5 MCV 87 MCH 28.1 MCHC 32.2 RDW 16.2 H Plt Count 240 Seg Neutrophils % 49.6 Lymphocytes % 36.5 Monocytes % 9.5 Eosinophils % 3.4 Basophils % 1.0 Absolute Neutrophils 2.9 Absolute Lymphocytes 2.1 Absolute Monocytes 0.6 Absolute Eosinophils 0.2 Absolute Basophils 0.1 PT 17.8 H INR 1.38 Sodium 143.2 Potassium 4.4 Chloride 107 Carbon Dioxide 25 Anion Gap 11 BUN 27 H Creatinine 0.95 Est GFR ( Amer) > 60 Est GFR (Non-Af Amer) 57 L Glucose 98 POC Glucose Lactic Acid Calcium 9.4 Total Bilirubin 0.3 Direct Bilirubin 0.3 Neonat Total Bilirubin Not Reportable Neonat Direct Bilirubin Not Reportable Neonat Indirect Bili Not Reportable AST 34 ALT 49 Alkaline Phosphatase 65 Creatine Kinase 79 CK-MB (CK-2) Troponin I NT-Pro-B Natriuret Pep Total Protein 7.1 Albumin 4.3 TSH Urine Color Urine Appearance Urine pH Ur Specific [place] Urine Protein Urine Glucose (UA) Urine Ketones Urine Blood Urine Nitrite Urine Bilirubin Urine Urobilinogen Ur Leukocyte Esterase Urine WBC (Auto) Urine RBC (Auto) Squamous Epi Cells Auto Urine Mucus (Auto) Urine Ascorbic Acid Stool Occult Blood 08/31/17 08/31/17 08/31/17 18:15 18:15 18:15 WBC RBC Hgb Hct MCV MCH MCHC RDW Plt Count Seg Neutrophils % Lymphocytes % Monocytes % Eosinophils % Basophils % Absolute Neutrophils Absolute Lymphocytes Absolute Monocytes Absolute Eosinophils Absolute Basophils PT INR Sodium Potassium Chloride Carbon Dioxide Anion Gap BUN Creatinine Est GFR ( Amer) Est GFR (Non-Af Amer) Glucose POC Glucose Lactic Acid 0.8 Calcium Total Bilirubin Direct Bilirubin Neonat Total Bilirubin Neonat Direct Bilirubin Neonat Indirect Bili AST ALT Alkaline Phosphatase Creatine Kinase CK-MB (CK-2) 1.18 Troponin I < 0.012 NT-Pro-B Natriuret Pep 526 H Total Protein Albumin TSH 0.97 Urine Color Urine Appearance Urine pH Ur Specific [place] Urine Protein Urine Glucose (UA) Urine Ketones Urine Blood Urine Nitrite Urine Bilirubin Urine Urobilinogen Ur Leukocyte Esterase Urine WBC (Auto) Urine RBC (Auto) Squamous Epi Cells Auto Urine Mucus (Auto) Urine Ascorbic Acid Stool Occult Blood 08/31/17 08/31/17 08/31/17 18:40 19:00 19:30 WBC RBC Hgb Hct MCV MCH MCHC RDW Plt Count Seg Neutrophils % Lymphocytes % Monocytes % Eosinophils % Basophils % Absolute Neutrophils Absolute Lymphocytes Absolute Monocytes Absolute Eosinophils Absolute Basophils PT INR Sodium Potassium Chloride Carbon Dioxide Anion Gap BUN Creatinine Est GFR ( Amer) Est GFR (Non-Af Amer) Glucose POC Glucose 100 Lactic Acid Calcium Total Bilirubin Direct Bilirubin Neonat Total Bilirubin Neonat Direct Bilirubin Neonat Indirect Bili AST ALT Alkaline Phosphatase Creatine Kinase CK-MB (CK-2) Troponin I NT-Pro-B Natriuret Pep Total Protein Albumin TSH Urine Color YELLOW Urine Appearance CLEAR Urine pH 5.0 Ur Specific [place] 1.014 Urine Protein NEGATIVE Urine Glucose (UA) NEGATIVE Urine Ketones NEGATIVE Urine Blood NEGATIVE Urine Nitrite NEGATIVE Urine Bilirubin NEGATIVE Urine Urobilinogen NEGATIVE Ur Leukocyte Esterase TRACE H Urine WBC (Auto) 2 Urine RBC (Auto) 1 Squamous Epi Cells Auto <1 Urine Mucus (Auto) RARE Urine Ascorbic Acid NEGATIVE Stool Occult Blood NEGATIVE Chest X-Ray 08/31/17 18:23 IMPRESSION: NO ACUTE RADIOGRAPHIC FINDING IN THE CHEST. STABLE CARDIOMEGALY. Head CT 08/31/17 18:24 IMPRESSION: CHRONIC CHANGES OF ATROPHY AND MICROVASCULAR ISCHEMIA. CHRONIC RIGHT MAXILLARY SINUS DISEASE. NO ACUTE PROCESS. EVIDENCE OF ACUTE STROKE: NO. - Vital Signs Vital signs: Temp Pulse Resp BP Pulse Ox 56 L 14 159/74 H 97 08/31/17 21:00 08/31/17 21:01 08/31/17 21:01 08/31/17 21:01 - Laboratory Result Diagrams: 08/31/17 18:15 08/31/17 18:15 Laboratory results interpreted by me: 08/31/17 08/31/17 08/31/17 18:15 18:15 18:15 Hgb 11.7 L RDW 16.2 H PT 17.8 H BUN 27 H Est GFR (Non-Af Amer) 57 L NT-Pro-B Natriuret Pep Ur Leukocyte Esterase 08/31/17 08/31/17 18:15 19:30 Hgb RDW PT BUN Est GFR (Non-Af Amer) NT-Pro-B Natriuret Pep 526 H Ur Leukocyte Esterase TRACE H Discharge - Discharge Clinical Impression: UTI (urinary tract infection), Tremor, Weakness Condition: Good Disposition: HOME, SELF-CARE Instructions: Transient Ischemic Attack ([facility]), Urinary Tract Infection ([facility]) Prescriptions: Sulfamethoxazole/Trimethoprim [Bactrim 400-80 mg Tablet] 1 each PO BID 5 Days # 10 tablet Referrals: RAIN MARS PA-C [Primary Care Provider] - Follow up as needed ED NIH Stroke Scale - NIH Stroke Scale When completed:: Before Alteplase *: 1. NIH scale should be completed with appropriate accompanying assessment tools. *: 2. The NIH should reflect what the patient is capable of doing and should not be coached by the clinician. 1a. Level of Consciousness: 0=Alert;keenly responsive -: 1=Drowsy -: 2=Obtunded -: 3=Coma/unresponsive or reflex to noxious stimuli. 1a. Responses: 0 1b. Orientation Questions: a. What month is it? -: b. How old are you? -: 0=Answers both questions correctly. -: 1=Answers one question correctly or patient is intubated or has orotracheal trauma. -: 2=Answers neither question correctly. 1b. Responses: 0 1c. Response to commands: a. Open and close eyes? -: b. Airway Controller and release hand? -: Credit is given despite weakness. Demonstration of task is permitted. Substitute command if hands cannot be used. -: 0=Performs both tasks correctly -: 1=Performs one task correctly -: 2=Performs neither task correctly 1c. Responses: 0 2. Gaze: Establish eye contact and instruct patient to "Follow my finger" -: 0=Normal -: 1=Partial gaze palsy. Gaze is abnormal in one or both eyes, but where forced deviation or total gaze paresis is not present. -: 2=Forced deviation or total gaze paresis. 2. Responses: 0 3. Visual Aly: Sees fingers in all four quadrants. -: 0=No visual loss. -: 1=Partial hemianopsia. -: 2=Complete hemianopsia. -: 3=Bilateral hemianopsia (including Cortical blindness) 3. Responses: 0 4. Facial Movement: Instruct patient to: -: a. Show me your teeth -: b. Raise your eyebrows -: c. Close your eyes -: d. Smile -: 0=Normal symmetrical movement -: 1=Minor paralysis (flattened nasolabial fold, asymmetry on smiling). -: 2=Partial paralysis (total or near total paralysis of lower face). -: 3=Complete paralysis of upper and lower face 4. Responses: 0 5. Motor functions (left arm): Alternate sides and extend each arm with palms down (90 degrees if sitting or 45 degrees for supine). -: 0=No drift;limb holds for full 10 seconds. -: 1=Drift; limb holds but drifts down before full 10 seconds, but does not hit bed. -: 2=Some effort against gravity; limb cannot get to or maintain position. -: 3=No effort against gravity; limb falls. -: 4=No movement. -: UN=Amputation, joint fusion, explain in comments. 5. Responses (left arm): 0 5. Motor Functions (right arm): Alternate sides and extend each arm with palms down (90 degrees if sitting or 45 degrees for supine). -: 0=No drift;limb holds for full 10 seconds. -: 1=Drift; limb holds but drifts down before full 10 seconds, but does not hit bed. -: 2=Some effort against gravity; limb cannot get to or maintain position. -: 3=No effort against gravity; limb falls. -: 4=No movement. -: UN=Amputation, joint fusion, explain in comments. 5. Responses (right arm): 0 6. Motor Functions (left leg): With patient lying supine, alternate sides and extend each leg (30 degrees always while supine). -: 0=No drift, leg holds position for full 5 seconds -: 1=Drift; leg falls before full 5 seconds but does not hit bed. -: 2=Some effort against gravity, leg falls to bed but some effort against gravity. -: 3=No effort against gravity, leg falls to bed immediately. -: 4=No movement. -: UN=Amputation, joint fusion; explain in comments. 6. Responses (left leg): 0 6. Motor Functions (right leg): With patient lying supine, alternate sides and extend each leg (30 degrees always while supine). -: 0=No drift, leg holds position for full 5 seconds -: 1=Drift; leg falls before full 5 seconds but does not hit bed. -: 2=Some effort against gravity, leg falls to bed but some effort against gravity. -: 3=No effort against gravity, leg falls to bed immediately. -: 4=No movement. -: UN=Amputation, joint fusion; explain in comments. 6. Responses (right leg): 0 7. Limb Ataxia: With eyes open instruct patient to: -: a. "Touch your finger to your nose". -: b. "Touch your heel to your goldstein" -: 0=Absent -: 1=Present in one limb. -: 2=Present in two limbs. -: UN=Amputation or joint fusion; explain in comments. 7. Responses: 0 8. Sensory: Test sensation using pinprick or noxious stimuli. Test as many body parts as possible. -: 0=Normal;no sensory loss -: 1=Mile to moderate sensory loss (patient feels pin prick but is less sharp on affected side). -: 2=Severe or total sensory loss. 8. Responses: 0 9. Best Language: Instruct patient to: -: a. "Describe what you see in this picture." -: b. "Name the items in this picture." -: c. "Read these sentences." -: 0=No aphasia, normal -: 1=Mild to moderate aphasia. -: 2=Severe aphasia -: 3=Mute, global aphasia, no usable speech or auditory comprehension. 9. Responses: 0 10. Articulation, Dysarthia: Instruct patient to: -: "Read these words" or "Repeat these words" -: 0=Normal -: 1=Mild to moderate; patient may slur some words but can be understood without difficulty. -: 2=Severe; patients speech so slurred as to be unintelligible in the absence of dysphasia. -: UN=Intubated or other physical barrier, explain in comments. 10. Responses: 0 11. Extinction or inattention: 0=No abnormality -: 1= Visual, tactile, auditory, spatial, or personal inattention or extinction to bilateral simulation in one or the sensory modalities. -: 2=Profound paco-inattention or paco-inattention to more than one modality; does not recognize own hand. 11. Responses: 0 Total Score: 0
[2017-08-31] MEDS ORDERED: NORMAL SALINE 500 ML IV ONE (18:25)
[2017-08-31 18:46] LABS: ABSOLUTE BASOPHILS # (AUTO) 0.1 10^3/uL (0.0-0.2); ABSOLUTE EOSINOPHILS # (AUTO) 0.2 10^3/uL (0.0-0.6); ABSOLUTE LYMPHOCYTES (AUTO) 2.1 10^3/uL (0.5-4.7); ABSOLUTE MONOCYTES (AUTO) 0.6 10^3/uL (0.1-1.4); ABSOLUTE NEUT (AUTO) 2.9 10^3/uL (1.7-8.2); EOSINOPHILS % (AUTO) 3.4 % (0-6); HEMATOCRIT 36.5 % (36.0-47.0); HEMOGLOBIN 11.7 g/dL (12.0-15.5); LYMPHOCYTES % (AUTO) 36.5 % (13-45); MEAN CORPUSCULAR HEMOGLOBIN 28.1 pg (27.0-33.4); MEAN CORPUSCULAR HGB CONC 32.2 g/dL (32.0-36.0); MEAN CORPUSCULAR VOLUME 87 fl (80-97); MONOCYTES % (AUTO) 9.5 % (3-13); PLATELET COUNT 240 10^3/uL (150-450); RED BLOOD COUNT 4.17 10^6/uL (3.72-5.28); RED CELL DISTRIBUTION WIDTH 16.2 % (11.5-14.0); SEGMENTED NEUTROPHILS % (AUTO) 49.6 % (42-78); TOTAL CELLS COUNTED % (AUTO) 100 %; WHITE BLOOD COUNT 5.9 10^3/uL (4.0-10.5)
[2017-08-31 19:00] LABS: ALANINE AMINOTRANSFERASE 49 U/L (9-52); ALBUMIN 4.3 g/dL (3.5-5.0); ALKALINE PHOSPHATASE 65 U/L (38-126); ANION GAP 11 (5-19); ASPARTATE AMINO TRANSFERASE 34 U/L (14-36); BILIRUBIN,DIRECT 0.3 mg/dL (0.0-0.4); BILIRUBIN,TOTAL 0.3 mg/dL (0.2-1.3); BLOOD UREA NITROGEN 27 mg/dL (7-20); CALCIUM 9.4 mg/dL (8.4-10.2); CARBON DIOXIDE 25 mmol/L (22-30); CHLORIDE 107 mmol/L (98-107); CREATINE KINASE 79 U/L (30-135); GLUCOSE 98 mg/dL (75-110); POTASSIUM 4.4 mmol/L (3.6-5.0); SODIUM 143.2 mmol/L (137-145); TOTAL PROTEIN 7.1 g/dL (6.3-8.2)
[2017-08-31 19:02] LABS: INTERNATIONAL RATION (INR) 1.38; PROTHROMBIN TIME 17.8 SEC (11.4-15.4)
--- NOTE | 2017-08-31 19:03 | EKG REPORT ---
SEVERITY:- ABNORMAL ECG - SINUS RHYTHM PROBABLE LEFT ATRIAL ABNORMALITY LEFT AXIS DEVIATION LVH WITH SECONDARY REPOLARIZATION ABNORMALITY BORDERLINE PROLONGED QT INTERVAL : Confirmed by: Immanuel Valdivia MD 31-Aug-2017 19:02:15
[2017-08-31 19:09] LABS: CREATINE KINASE MB 1.18 ng/mL (<4.55)
--- NOTE | 2017-08-31 19:10 | RADIOLOGY REPORT (SQ) ---
EXAM DESCRIPTION: CHEST SINGLE VIEW COMPLETED DATE/TIME: 08/31/2017 6:46 pm REASON FOR STUDY: weakness cough/sob COMPARISON: 09/06/2016 EXAM PARAMETERS: NUMBER OF VIEWS: One view. TECHNIQUE: Single frontal radiographic view of the chest acquired. RADIATION DOSE: NA LIMITATIONS: None. FINDINGS: LUNGS AND PLEURA: No new opacities, masses or pneumothorax. No pleural effusion. MEDIASTINUM AND HILAR STRUCTURES: No masses. Contour normal. HEART AND VASCULAR STRUCTURES: Heart stable in size. Normal vasculature. BONES: No acute findings. HARDWARE: None in the chest. OTHER: No other significant finding. IMPRESSION: NO ACUTE RADIOGRAPHIC FINDING IN THE CHEST. STABLE CARDIOMEGALY. TECHNICAL DOCUMENTATION: JOB ID: [id number] [employer]- All Rights Reserved Reading location - IP/workstation name: [email or web address]
--- NOTE | 2017-08-31 19:11 | RADIOLOGY REPORT (SQ) ---
EXAM DESCRIPTION: CT HEAD WITHOUT COMPLETED DATE/TIME: 08/31/2017 6:52 pm REASON FOR STUDY: left facial droop COMPARISON: 06/17/2016 TECHNIQUE: Axial images acquired through the brain without intravenous contrast. Images reviewed wi th bone, brain and subdural windows. Images stored on PACS. All CT scanners at this facility use dose modulation, iterative reconstruction, and/or weight based d osing when appropriate to reduce radiation dose to as low as reasonably achievable (ALARA). [facility]: Dose Right [facility]: CareDose [facility]: Dose Right [facility]: Teradose 4D [facility]: Smart Incentivyze RADIATION DOSE: CT Rad equipment meets quality standard of care and radiation dose reduction techniq ues were employed. CTDIvol: 64.6 mGy. DLP: 1163 mGy-cm.mGy. LIMITATIONS: None. FINDINGS: VENTRICLES: Prominent. CEREBRUM: No masses. No hemorrhage. No midline shift. Areas of low density in the white matter mos t likely due to chronic micro-vascular ischemic change. No evidence for acute infarction. CEREBELLUM: No masses. No hemorrhage. No alteration of density. No evidence for acute infarction. EXTRAAXIAL SPACES: Age-related involutional change. No fluid collections. No masses. ORBITS AND GLOBE: No intra- or extraconal masses. Normal contour of globe without masses. CALVARIUM: No fracture. PARANASAL SINUSES: Right maxillary sinus mucous retention cyst. No air-fluid levels. SOFT TISSUES: No mass or hematoma. OTHER: No other significant finding. IMPRESSION: CHRONIC CHANGES OF ATROPHY AND MICROVASCULAR ISCHEMIA. CHRONIC RIGHT MAXILLARY SINUS DI SEASE. NO ACUTE PROCESS. EVIDENCE OF ACUTE STROKE: NO. TECHNICAL DOCUMENTATION: JOB ID: [id number] Quality ID # [id number]: Final reports with documentation of one or more dose reduction techniques (e.g., Au tomated exposure control, adjustment of the mA and/or kV according to patient size, use of iterative reconstruction technique) 2010 [employer]- All Rights Reserved Reading location - IP/workstation name: [email or web address]
[2017-08-31 19:13] LABS: NT PRO BNP 526 pg/mL (<450)
[2017-08-31 19:14] LABS: TROPONIN I < 0.012 ng/mL
[2017-08-31 19:52] LABS: APPEARANCE,URINE CLEAR; BILIRUBIN,URINE NEGATIVE (NEGATIVE); COLOR,URINE YELLOW; GLUCOSE, URINE NEGATIVE (NEGATIVE); KETONES,URINE NEGATIVE (NEGATIVE); LEUKOCYTE ESTERASE,URINE TRACE (NEGATIVE); NITRITE,URINE NEGATIVE (NEGATIVE); PROTEIN,URINE NEGATIVE (NEGATIVE); URINE SPECIFIC GRAVITY 1.014; UROBILINOGEN,URINE NEGATIVE mg/dL (<2.0)
[2017-08-31] MEDS ORDERED: SULFAMETHOXAZOLE/TRIMETHOPRIM 800-160 MG TABLET PO ONE (21:46)
[2017-08-31 22:43] VITALS: BP 156/72
== END 2017-08-31 22:29 | disposition home or self-care (01) ==
LOC: ER 17:39
DX: N39.0 Urinary tract infection, site not specified (principal); R53.1 Weakness; R05 Cough; R11.0 Nausea; R63.0 Anorexia; J32.0 Chronic maxillary sinusitis; E11.9 Type 2 diabetes mellitus without complications; G25.0 Essential tremor; I25.10 Atherosclerotic heart disease of native coronary artery without angina pectoris; I10 Essential (primary) hypertension; I25.2 Old myocardial infarction; I48.91 Unspecified atrial fibrillation; Z79.01 Long term (current) use of anticoagulants; Z95.5 Presence of coronary angioplasty implant and graft; Z95.0 Presence of cardiac pacemaker
CPT/HCPCS: 93005; 99285; 96360; 36415; 87040; 87086; 82553; 82962; 82550; 84443; 85025; 85610; 82272; 80053; 81001; 84484; 83605; 83880; 71045; 70450; 93010; J7040

== ENCOUNTER → 2018-02-01 | Outpatient (CLI) | payer MEDICARE ==
--- NOTE | 2018-02-01 17:04 | RADIOLOGY REPORT (SQ) ---
EXAM DESCRIPTION: SHOULDER RIGHT 2 OR MORE VIEWS COMPLETED DATE/TIME: 02/01/2018 4:13 pm REASON FOR STUDY: M25.511, CHRONIC RIGHT SHOULDER PAIN COMPARISON: None. NUMBER OF VIEWS: Three views. TECHNIQUE: Internal rotation, external rotation, and Y view images acquired of the right shoulder. LIMITATIONS: None. FINDINGS: MINERALIZATION: Normal. BONES: No acute fracture or dislocation. No worrisome bone lesions. JOINTS: No dislocation. VISUALIZED LUNGS AND RIBS: No pneumothorax. No rib fracture. SOFT TISSUES: No radiopaque foreign body. OTHER: No other significant finding. IMPRESSION: NEGATIVE STUDY OF THE RIGHT SHOULDER. NO RADIOGRAPHIC EVIDENCE OF ACUTE INJURY. TECHNICAL DOCUMENTATION: JOB ID: [id number] [email or web address]- All Rights Reserved Reading location - IP/workstation name: [email or web address]
== END ==
LOC: OD 15:56
PROVIDERS: ATTEND Family Medicine
DX: M25.511 Pain in right shoulder (principal)

== ENCOUNTER → 2018-03-14 | Outpatient (CLI) | payer MEDICARE ==
--- NOTE | 2018-03-14 13:17 | RADIOLOGY REPORT (SQ) ---
EXAM DESCRIPTION: T SPINE AP/LAT COMPLETED DATE/TIME: 03/14/2018 1:00 pm REASON FOR STUDY: DORSALGIA, UNSPECIFIED M54.9 DORSALGIA, UNSPECIFIED COMPARISON: None. NUMBER OF VIEWS: Two views. TECHNIQUE: AP and lateral radiographic images acquired of the thoracic spine. LIMITATIONS: None. FINDINGS: MINERALIZATION: Normal. ALIGNMENT: Normal. No scoliosis. VERTEBRAE: No fracture or bone lesion. Maintained height, normal segmentation. DISCS: Multilevel disc space narrowing with osteophytes. HARDWARE: None in the spine. MEDIASTINUM AND SOFT TISSUES: Normal heart size and aortic contour. No soft tissue abnormality. VISUALIZED LUNG TATE: Clear. OTHER: No other significant finding. IMPRESSION: SPONDYLOSIS WITHOUT BONE LESION OR FRACTURE. TECHNICAL DOCUMENTATION: JOB ID: [id number] [employer]- All Rights Reserved Reading location - IP/workstation name: [email or web address]
== END ==
LOC: OD 12:42
PROVIDERS: ATTEND Family Medicine
DX: M47.894 Other spondylosis, thoracic region (principal); M54.9 Dorsalgia, unspecified
CPT/HCPCS: 72070

== ENCOUNTER 2018-08-12 10:46 | Emergency (ER) | payer MEDICARE ==
[2018-08-12 11:10] LABS: ABSOLUTE EOSINOPHILS # (AUTO) 0.1 10^3/uL (0.0-0.6); ABSOLUTE LYMPHOCYTES (AUTO) 1.6 10^3/uL (0.5-4.7); ABSOLUTE MONOCYTES (AUTO) 0.5 10^3/uL (0.1-1.4); ABSOLUTE NEUT (AUTO) 4.5 10^3/uL (1.7-8.2); BASOPHILS % (AUTO) 0.5 % (0-2); HEMATOCRIT 39.1 % (36.0-47.0); HEMOGLOBIN 12.8 g/dL (12.0-15.5); LYMPHOCYTES % (AUTO) 23.8 % (13-45); MEAN CORPUSCULAR HEMOGLOBIN 27.7 pg (27.0-33.4); MEAN CORPUSCULAR HGB CONC 32.7 g/dL (32.0-36.0); MEAN CORPUSCULAR VOLUME 85 fl (80-97); MONOCYTES % (AUTO) 8.2 % (3-13); PLATELET COUNT 287 10^3/uL (150-450); RED BLOOD COUNT 4.63 10^6/uL (3.72-5.28); RED CELL DISTRIBUTION WIDTH 15.6 % (11.5-14.0); SEGMENTED NEUTROPHILS % (AUTO) 66.5 % (42-78); TOTAL CELLS COUNTED % (AUTO) 100 %; WHITE BLOOD COUNT 6.7 10^3/uL (4.0-10.5)
[2018-08-12] MEDS ORDERED: ASPIRIN 81 MG TABLET, CHEWABLE PO ONE (11:26)
[2018-08-12] MEDS ORDERED: NORMAL SALINE 500 ML IV ONE (11:26)
--- NOTE | 2018-08-12 11:27 | ER Document Report ---
ED General - General Chief Complaint: Near Syncope Stated Complaint: GENERAL WEAKNESS Time Seen by Provider: 08/12/18 11:13 Primary Care Provider: QUE MCGILL MD [Primary Care Provider] - Follow up as needed Mode of Arrival: Medic Information source: Patient, Relative, [facility] Records Notes: 77-year-old female with atrial fibrillation, coronary artery disease, hyp erlipidemia, hypertension, type 2 diabetes presents via EMS after a syncopal episode while at [employer]. Daughter who is at the bedside states that they were in Monday school when the patient requested the keys to the car so she can go lay down. The daughter escorted her out of the [employer] but states that she became limp and had to sit down immediately. Patient's daughter also states that the patient became unresponsive momentarily and then began dry heaving. Her eyes were rolled back, daughter denies any abnormal shaking. Patient's only current complaint is weakness. She denies chest pain, headache, shortness of breath, nausea, vomiting, abdominal pain, recent illness. Patient does have a history of significant coronary disease that required stent placement. Her trimming press operator is Dr. Anderson. She denies any changes in her medication. Patient did not eat this morning. TRAVEL OUTSIDE OF THE [place] IN LAST 30 DAYS: No - HPI Onset: Just prior to arrival Onset/Duration: Sudden Quality of pain: No pain Severity: None Pain Level: Denies Associated symptoms: Nausea, Weakness, Other - Near syncope. denies: Chest pain, Nonproductive cough, Productive cough, Diarrhea, Fever, Headache, Vomiting, Shortness of breath Exacerbated by: Denies Relieved by: Denies Similar symptoms previously: No Recently seen / treated by doctor: No - Related Data Allergies/Adverse Reactions: No Known Allergies Allergy (Verified 08/31/17 17:41) Past Medical History - General Information source: Patient - Patient, Relative, [facility] Records - Social History Smoking Status: Former Smoker Frequency of alcohol use: None Drug Abuse: None Lives with: Alone Family History: Reviewed & Not Pertinent Patient has suicidal ideation: No Patient has homicidal ideation: No - Past Medical History Cardiac Medical History: Reports: Hx Atrial Fibrillation, Hx Coronary Artery Disease - cardiac stents x3, Hx Heart Attack - 2005, Hx Hypercholesterolemia, Hx Hypertension - medication Denies: Hx DVT, Hx Pulmonary Embolism Pulmonary Medical History: Denies: Hx Asthma, Hx Bronchitis, Hx COPD, Hx Pneumonia Neurological Medical History: Denies: Hx Cerebrovascular Accident, Hx Seizures Endocrine Medical History: Reports: Hx Diabetes Mellitus Type 2. Denies: Hx Hyperthyroidism, Hx Hypothyroidism Renal/ Medical History: Denies: Hx Peritoneal Dialysis GI Medical History: Reports: Hx Hiatal Hernia. Denies: Hx Cirrhosis, Hx Hepatitis, Hx Ulcer Musculoskeletal Medical History: Reports Hx Arthritis Psychiatric Medical History: Reports: Hx Depression Infectious Medical History: Denies: Hx Hepatitis Past Surgical History: Reports: Hx Cardiac Catheterization, Hx Coronary Stent, Hx Hysterectomy. Denies: Hx Mastectomy, Hx Open Heart Surgery, Hx Pacemaker - Immunizations Hx Diphtheria, Pertussis, Tetanus Vaccination: No Hx Pneumococcal Vaccination: 06/19/07 Review of Systems - Review of Systems Notes: REVIEW OF SYSTEMS: CONSTITUTIONAL : Denies fever, chills, or sweats. Denies recent illness. Denies weight loss, recent hospitalizations. EENT: Denies visual changes, eye pain. Denies sore throat, oral lesions, difficulty swallowing. CARDIOVASCULAR: Denies chest pain. Denies palpitations. Denies lower extremity edema. RESPIRATORY: Denies cough. Denies shortness of breath, wheezing. GASTROINTESTINAL: Denies abdominal pain or distention. Denies vomiting, or diarrhea. Denies blood in vomitus, stools, or per rectum. Denies black, tarry stools. Denies constipation. GENITOURINARY: Denies difficulty urinating, painful urination, frequency, blood in urine, or vaginal discharge. MUSCULOSKELETAL: Denies back or neck pain or stiffness. Denies joint pain or swelling. SKIN: Denies rash, lesions or sores. HEMATOLOGIC : Denies easy bruising or bleeding. LYMPHATIC: Denies swollen glands. NEUROLOGICAL: Denies confusion or altered mental status. Denies loss of consciousness. Denies headache. Denies weakness or paralysis. Denies problems difficulty with ambulation, slurred speech. Denies sensory loss, numbness, or tingling. Denies seizures. PSYCHIATRIC: Denies anxiety or stress. Denies depression, suicidal ideation, or homicidal ideation. Denies visual or auditory hallucinations. Physical Exam - Vital signs Vitals: Resp 15 08/12/18 10:53 - Notes Notes: PHYSICAL EXAMINATION: GENERAL: Pale, no acute distress HEAD: Atraumatic, normocephalic. EYES: Pupils equal round and reactive to light, extraocular movements intact, conjunctiva are normal. ENT: Nares patent, oropharynx clear without exudates. Moist mucous membranes. NECK: Normal range of motion, supple without lymphadenopathy LUNGS: Breath sounds clear to auscultation bilaterally and equal. No wheezes rales or rhonchi. HEART: Regular rate and rhythm without murmurs ABDOMEN: Soft, nontender, nondistended abdomen. No guarding, no rebound. No masses appreciated. Female : deferred Musculoskeletal: Normal range of motion, no pitting or edema. No cyanosis. NEUROLOGICAL: Cranial nerves grossly intact. Normal speech, normal gait. Normal sensory, motor exams PSYCH: Normal mood, normal affect. SKIN: Warm, Dry, normal turgor, no rashes or lesions noted. Course - Re-evaluation Re-evalutation: Temp Pulse Resp BP Pulse Ox 97.9 F 56 L 16 128/70 H 95 08/12/18 10:56 08/12/18 10:58 08/12/18 10:56 08/12/18 10:56 08/12/18 10:56 Laboratory 08/12/18 08/12/18 08/12/18 10:30 10:30 10:30 WBC 6.7 RBC 4.63 Hgb 12.8 Hct 39.1 MCV 85 MCH 27.7 MCHC 32.7 RDW 15.6 H Plt Count 287 Seg Neutrophils % 66.5 Lymphocytes % 23.8 Monocytes % 8.2 Eosinophils % 1.0 Basophils % 0.5 Absolute Neutrophils 4.5 Absolute Lymphocytes 1.6 Absolute Monocytes 0.5 Absolute Eosinophils 0.1 Absolute Basophils 0.0 Sodium 141.0 Potassium 3.9 Chloride 103 Carbon Dioxide 24 Anion Gap 14 BUN 18 Creatinine 1.02 Est GFR ( Amer) > 60 Est GFR (Non-Af Amer) 53 L Glucose 182 H Calcium 9.5 Magnesium Total Bilirubin 0.8 Direct Bilirubin 0.2 Neonat Total Bilirubin Not Reportable Neonat Direct Bilirubin Not Reportable Neonat Indirect Bili Not Reportable AST 68 H ALT 10 Alkaline Phosphatase 84 Creatine Kinase 52 CK-MB (CK-2) 0.83 Troponin I < 0.012 NT-Pro-B Natriuret Pep Total Protein 7.6 Albumin 4.6 Urine Color Urine Appearance Urine pH Ur Specific [place] Urine Protein Urine Glucose (UA) Urine Ketones Urine Blood Urine Nitrite Urine Bilirubin Urine Urobilinogen Ur Leukocyte Esterase Urine WBC (Auto) Urine RBC (Auto) U Hyaline Cast (Auto) Urine Bacteria (Auto) Urine Red Cell Clumps Urine WBC Clumps Squamous Epi Cells Auto U Non-Squamous Epis Auto Calcium Carbonate Cryst Calcium Phosphate Cryst Calcium Oxalate Cr Auto Leucine Crystals Cystine Crystals Uric Acid Cryst (Auto) Triple Phos Cryst (Auto) Tyrosine Crystals Amorphous Sediment Auto Cellular Casts Epithelial Casts (Auto) Fatty Casts Granular Casts (Auto) Waxy Casts (Auto) Broad Casts RBC Casts (Auto) WBC Casts (Auto) Urine Mucus (Auto) U Trichomonas (Auto) Ur Yeast w Hyphae Urine Yeast (Budding) Urine Ascorbic Acid 08/12/18 08/12/18 08/12/18 10:30 10:30 12:45 WBC RBC Hgb Hct MCV MCH MCHC RDW Plt Count Seg Neutrophils % Lymphocytes % Monocytes % Eosinophils % Basophils % Absolute Neutrophils Absolute Lymphocytes Absolute Monocytes Absolute Eosinophils Absolute Basophils Sodium Potassium Chloride Carbon Dioxide Anion Gap BUN Creatinine Est GFR ( Amer) Est GFR (Non-Af Amer) Glucose Calcium Magnesium 1.5 L Total Bilirubin Direct Bilirubin Neonat Total Bilirubin Neonat Direct Bilirubin Neonat Indirect Bili AST ALT Alkaline Phosphatase Creatine Kinase CK-MB (CK-2) Troponin I NT-Pro-B Natriuret Pep 804 H Total Protein Albumin Urine Color Cancelled Urine Appearance Cancelled Urine pH Cancelled Ur Specific [place] Cancelled Urine Protein Cancelled Urine Glucose (UA) Cancelled Urine Ketones Cancelled Urine Blood Cancelled Urine Nitrite Cancelled Urine Bilirubin Cancelled Urine Urobilinogen Cancelled Ur Leukocyte Esterase Cancelled Urine WBC (Auto) Cancelled Urine RBC (Auto) Cancelled U Hyaline Cast (Auto) Cancelled Urine Bacteria (Auto) Cancelled Urine Red Cell Clumps Cancelled Urine WBC Clumps Cancelled Squamous Epi Cells Auto Cancelled U Non-Squamous Epis Auto Cancelled Calcium Carbonate Cryst Cancelled Calcium Phosphate Cryst Cancelled Calcium Oxalate Cr Auto Cancelled Leucine Crystals Cancelled Cystine Crystals Cancelled Uric Acid Cryst (Auto) Cancelled Triple Phos Cryst (Auto) Cancelled Tyrosine Crystals Cancelled Amorphous Sediment Auto Cancelled Cellular Casts Cancelled Epithelial Casts (Auto) Cancelled Fatty Casts Cancelled Granular Casts (Auto) Cancelled Waxy Casts (Auto) Cancelled Broad Casts Cancelled RBC Casts (Auto) Cancelled WBC Casts (Auto) Cancelled Urine Mucus (Auto) Cancelled U Trichomonas (Auto) Cancelled Ur Yeast w Hyphae Cancelled Urine Yeast (Budding) Cancelled Urine Ascorbic Acid Cancelled 08/12/18 11:31 77-year-old female presents after a episode via EMS that just occurred prior to arrival. Patient currently only complaining of weakness. Denies any chest pain, shortness of breath. Vital signs reviewed and within normal limits. Patient does have EKG changes when compared to her EKG performed in August 2017. Patient has mild elevation in aVR with T wave inversion in V4 through V6 as well as [address] depression. Serial EKGs will be performed as ST elevation in aVR could indicate vessel disease. Patient was administered aspirin, 500 cc of IV fluids. 08/12/18 11:32 08/12/18 12:[address] Anderson the patient's trimming press operator at the [facility] at [phone]. Discussed the patient's presenting symptoms and EKG. He feels that it is best that the patient be transferred to [facility] at this time. I did contact the transfer center and was told that they are on a "surge" and the patient will be on a waiting list. They state that there are 3 patients on the waiting list and they have been on the waiting list for over 48 hours, patient unlikely to get a bed in less than 2 days. This 08/12/18 12:24 Patient is orthostatic negative. 08/12/18 13:35 Repeat EKG shows a prolonged QTC which is now 544. Patient was given 2 g of magnesium and repeat EKG shows a QTC of 494. Continue to monitor 08/12/18 13:[address] Bass who agrees that if the patient does not want to be transferred that he is willing to see her but he agrees with Dr. Anderson that she should be at a facility that can perform cardiac intervention if needed. I called Dr. Anderson back and made him aware that there is a 2-day waiting list for [facility] and he agrees that the patient should be transferred to any facility that has room. Daughter is in agreement with transfer. Magnesium drip initiated. 08/12/18 14:11 [facility] contacted for transfer. 08/12/18 14:55 Patient reevaluated and she states that she is feeling much better. Lanre heaton pending. Spoke to Dr. Bass on-call for cardiology who recommends holding the amiodarone, can cause prolonged QTC. Serial EKGs have been performed . Patient has been accepted for admission to [facility] by Dr. Zepeda I spoke to his cardiac fellow Dr. Yanez who recommends treating the patient as an an STEMI with heparin. Lovenox was administered. 08/12/18 17:25 Repeat troponin within normal limits. TSH, T3, free T4 within normal limits. Patient remains alert, awake. States again that she is feeling much better. Repeat EKG shows that her QTC went from 594 back to 534. 08/12/18 18:37 Patient reevaluated she is awake alert, feeling better. Daughter is back at the bedside and is aware that patient will be transferred to [facility] likely sometime within the next 8-10 hours. I did leave the patient on the list for [facility] but never spoke to an attending physician nor did I get an accepting physician. I do have an accepting physician for [facility] Dr. Prater 08/12/18 21:28 Third troponin within normal withinlimits - Vital Signs Vital signs: Temp Pulse Resp BP Pulse Ox 97.9 F 57 L 13 167/70 H 96 08/12/18 10:56 08/12/18 12:09 08/12/18 19:01 08/12/18 19:01 08/12/18 19:01 - Laboratory Result Diagrams: 08/12/18 10:30 08/12/18 10:30 Laboratory results interpreted by me: 08/12/18 08/12/18 08/12/18 10:30 10:30 10:30 RDW 15.6 H Est GFR (Non-Af Amer) 53 L Glucose 182 H Magnesium AST 68 H NT-Pro-B Natriuret Pep 804 H 08/12/18 10:30 RDW Est GFR (Non-Af Amer) Glucose Magnesium 1.5 L AST NT-Pro-B Natriuret Pep - Diagnostic Test Radiology reviewed: Image reviewed, Reports reviewed - EKG Interpretation by Me EKG shows normal: Sinus rhythm Rate: Bradycardia Rhythm: NSR - Patient has mild ST elevation in aVR with T wave inversions in V4, V5, V6. [place]/QRS: Left axis deviation When compared to previous EKG there are: Changes noted, Other - prolonged QTC Critical Care Note - Critical Care Note Total time excluding time spent on procedures (mins): 45 - Minutes of critical care time spent in direct contact evaluating and reevaluating the patient, treating symptoms, reviewing labs and studies and speaking with family and consultants excluding any procedures Discharge - Discharge Clinical Impression: Syncope and collapse, Weakness, Diabetes mellitus type 2 in nonobese, Prolonged QTC, Acute electrocardiogram changes HTN (hypertension) Qualifiers: Hypertension type: unspecified Qualified Code(s): I10 - Essential (primary) hypertension CAD (coronary artery disease) Qualifiers: Coronary Disease-Associated Artery/Lesion type: unspecified vessel or lesion type [place] vs. transplanted heart: [place] heart Associated angina: without angina Qualified Code(s): I25.10 - Atherosclerotic heart disease of [place] coronary artery without angina pectoris Condition: Good Disposition: [facility] Referrals: QUE MCGILL MD [Primary Care Provider] - Follow up as needed
[2018-08-12 11:29] LABS: ALANINE AMINOTRANSFERASE 10 U/L (9-52); ALBUMIN 4.6 g/dL (3.5-5.0); ALKALINE PHOSPHATASE 84 U/L (38-126); ANION GAP 14 (5-19); ASPARTATE AMINO TRANSFERASE 68 U/L (14-36); BILIRUBIN,DIRECT 0.2 mg/dL (0.0-0.4); BILIRUBIN,TOTAL 0.8 mg/dL (0.2-1.3); BLOOD UREA NITROGEN 18 mg/dL (7-20); CALCIUM 9.5 mg/dL (8.4-10.2); CARBON DIOXIDE 24 mmol/L (22-30); CHLORIDE 103 mmol/L (98-107); CREATINE KINASE 52 U/L (30-135); GLUCOSE 182 mg/dL (75-110); POTASSIUM 3.9 mmol/L (3.6-5.0); TOTAL PROTEIN 7.6 g/dL (6.3-8.2)
[2018-08-12 11:41] LABS: CREATINE KINASE MB 0.83 ng/mL (<4.55)
[2018-08-12 11:42] LABS: TROPONIN I < 0.012 ng/mL
[2018-08-12] MEDS ORDERED: MAGNESIUM SULFATE/D5W 1 GM/100 ML RTUPB IV ONE ×4 (12:23→16:00)
--- NOTE | 2018-08-12 15:00 | RADIOLOGY REPORT (SQ) ---
EXAM DESCRIPTION: CHEST SINGLE VIEW COMPLETED DATE/TIME: 08/12/2018 2:52 pm REASON FOR STUDY: SYNCOPE COMPARISON: 08/31/2017 TECHNIQUE: Single frontal radiographic view of the chest acquired. NUMBER OF VIEWS: One view. LIMITATIONS: None. FINDINGS: LUNGS AND PLEURA: No pneumothorax. No consolidation or pleural effusion. MEDIASTINUM AND HILAR STRUCTURES: Stable. HEART AND VASCULAR STRUCTURES: Stable. BONES: No acute findings. HARDWARE: None in the chest. OTHER: No other significant finding. IMPRESSION: NO ACUTE FINDINGS. TECHNICAL DOCUMENTATION: JOB ID: [id number] [employer]- All Rights Reserved Reading location - IP/workstation name: [email or web address]
[2018-08-12] MEDS: ENOXAPARIN SODIUM INJ 80 MG/0.8 ML DISP.SYRIN SUBCUT SCH ×2 (15:33→22:53)
--- NOTE | 2018-08-12 15:56 | EKG REPORT ---
SEVERITY:- ABNORMAL ECG - SINUS RHYTHM LEFT AXIS DEVIATION LVH WITH SECONDARY REPOLARIZATION ABNORMALITY PROLONGED QT INTERVAL : Confirmed by: Immanuel Valdivia MD 12-Aug-2018 15:55:25
--- NOTE | 2018-08-12 15:57 | EKG REPORT ---
SEVERITY:- ABNORMAL ECG - SINUS RHYTHM LEFT AXIS DEVIATION LVH WITH SECONDARY REPOLARIZATION ABNORMALITY PROLONGED QT INTERVAL : Confirmed by: Immanuel Valdivia MD 12-Aug-2018 15:55:52
--- NOTE | 2018-08-12 15:57 | EKG REPORT ---
SEVERITY:- ABNORMAL ECG - SINUS RHYTHM LEFT AXIS DEVIATION LVH WITH SECONDARY REPOLARIZATION ABNORMALITY BORDERLINE PROLONGED QT INTERVAL : Confirmed by: Immanuel Valdivia MD 12-Aug-2018 15:56:18
[2018-08-12 16:30] LABS: FREE T3 3.39 pg/mL (2.77-5.27); FREE T4 (FREE THYROXINE) 1.35 ng/dL (0.78-2.19)
[2018-08-12 16:44] LABS: THYROID STIMULATING HORMONE 1.09 uIU/mL (0.47-4.68)
[2018-08-12] MEDS ORDERED: RINGERS SOLUTION,LACTATED 1,000 ML IV ONE (17:23)
[2018-08-13 05:00] LABS: APPEARANCE,URINE SLIGHTLY-CLOUDY; BILIRUBIN,URINE NEGATIVE (NEGATIVE); COLOR,URINE YELLOW; GLUCOSE, URINE NEGATIVE (NEGATIVE); KETONES,URINE NEGATIVE (NEGATIVE); LEUKOCYTE ESTERASE,URINE SMALL (NEGATIVE); NITRITE,URINE NEGATIVE (NEGATIVE); PROTEIN,URINE NEGATIVE (NEGATIVE); URINE SPECIFIC GRAVITY 1.017; UROBILINOGEN,URINE NEGATIVE mg/dL (<2.0)
[2018-08-13 07:19] LABS: ABSOLUTE EOSINOPHILS # (AUTO) 0.2 10^3/uL (0.0-0.6); ABSOLUTE MONOCYTES (AUTO) 0.5 10^3/uL (0.1-1.4); ABSOLUTE NEUT (AUTO) 2.6 10^3/uL (1.7-8.2); BASOPHILS % (AUTO) 0.6 % (0-2); EOSINOPHILS % (AUTO) 3.1 % (0-6); HEMATOCRIT 33.6 % (36.0-47.0); HEMOGLOBIN 11.1 g/dL (12.0-15.5); LYMPHOCYTES % (AUTO) 36.9 % (13-45); MEAN CORPUSCULAR HEMOGLOBIN 27.7 pg (27.0-33.4); MEAN CORPUSCULAR HGB CONC 32.9 g/dL (32.0-36.0); MEAN CORPUSCULAR VOLUME 84 fl (80-97); MONOCYTES % (AUTO) 9.4 % (3-13); PLATELET COUNT 211 10^3/uL (150-450); RED BLOOD COUNT 3.99 10^6/uL (3.72-5.28); RED CELL DISTRIBUTION WIDTH 15.6 % (11.5-14.0); TOTAL CELLS COUNTED % (AUTO) 100 %; WHITE BLOOD COUNT 5.3 10^3/uL (4.0-10.5)
[2018-08-13 07:33] LABS: ANION GAP 6 (5-19); BLOOD UREA NITROGEN 20 mg/dL (7-20); CALCIUM 9.4 mg/dL (8.4-10.2); CARBON DIOXIDE 29 mmol/L (22-30); CHLORIDE 106 mmol/L (98-107); GLUCOSE 128 mg/dL (75-110); POTASSIUM 3.7 mmol/L (3.6-5.0)
[2018-08-13] MEDS ORDERED: METFORMIN HCL 500 MG TABLET PO SCH (08:00)
[2018-08-13] MEDS: ENOXAPARIN SODIUM INJ 80 MG/0.8 ML DISP.SYRIN SUBCUT SCH (10:55)
--- NOTE | 2018-08-13 15:33 | ER Document Report ---
Doctor's Note Notes: 08/13/18 15:31 This is a continuation of care note. I did discuss this patient with the original ED physician, Dr. [facility]. In short, this patient presented with syncope. She was found to have a prolonged QT interval. She was maintained here in the emergency department awaiting transfer. She has had no chest pain. She has had no near syncope. She has been medicated here with Lovenox and magnesium. Her serial troponins were negative. Repeat EKG was performed. It revealed a sinus rhythm with a rate of 57 bpm. Left axis deviation and LVH. She has nonspecific ST changes that are unchanged from prior study. Her QT C is 468, greatly improved. I spoke with Dr. Anderson, her route vending machine servicer, at 1520 today. He had been unaware that she was still awaiting transfer to a tertiary center and was still here in the emergency department. He has an opening on his schedule tomorrow morning at 8 AM. He is happy to see her then. The patient is amenable to this. We will discharge her to home, she is to return with worsening or new concerning symptoms.
[2018-08-13 16:03] VITALS: BP 196/89
--- NOTE | 2018-08-15 10:32 | EKG REPORT ---
SEVERITY:- ABNORMAL ECG - SINUS RHYTHM LEFT AXIS DEVIATION LVH WITH SECONDARY REPOLARIZATION ABNORMALITY : Confirmed by: Dennys Rolon 15-Aug-2018 10:32:10
== END 2018-08-13 15:55 | disposition short-term general hospital (02) ==
LOC: ER 10:46
DX: R55 Syncope and collapse (principal); R00.1 Bradycardia, unspecified; I25.10 Atherosclerotic heart disease of native coronary artery without angina pectoris; R53.1 Weakness; I10 Essential (primary) hypertension; R94.31 Abnormal electrocardiogram [ECG] [EKG]; E11.9 Type 2 diabetes mellitus without complications; Z95.5 Presence of coronary angioplasty implant and graft; R11.0 Nausea
CPT/HCPCS: 93005 ×2; 99291; 96372; 96361; 51701; 96365; 96366; 36415; 84439; 82553; 82550; 83735; 84443; 85025; 80048; 80053; 81001; 84484; 84481; 83880; 71045; 93010 ×2; A9270 ×2; J3475; J7040; J7120; J1650 ×2

== ENCOUNTER 2019-01-31 10:34 | Observation (INO) | payer MEDICARE ==
--- NOTE | 2019-01-31 10:57 | ER Document Report ---
ED Medical Screen (RME) - General Stated Complaint: CHEST PAIN Time Seen by Provider: 01/31/19 10:56 Primary Care Provider: YOSELIN MASON NP [Primary Care Provider] - Follow up as needed Information source: Patient Notes: Patient is a 78-year-old female with significant cardiac medical history presenting with chief complaint of chest pressure that has been going on for 1 week. Patient reports chest pressure is worse at night and worse when lying down. She reports occasional shortness of breath. She also complains of tightness in the epigastric area. She denies any nausea, vomiting or dizziness. She is been otherwise well and has not had any fever. Exam: Heart sounds S1-S2 present with no ectopy noted. Patient alert, oriented, answering all questions appropriately. I have greeted and performed a rapid initial assessment of this patient. A comprehensive ED assessment and evaluation of the patient, analysis of test results and completion of the medical decision making process will be conducted by additional ED providers. I have specifically instructed the patient or family members with the patient to immediately return to any nursing staff should anything change in the patient's condition or with their chief complaint. This medical record was dictated with voice recognizing software. There may be grammatical, syntax errors that are unintended. TRAVEL OUTSIDE OF THE [place] IN LAST 30 DAYS: No - Related Data Allergies/Adverse Reactions: No Known Allergies Allergy (Verified 01/31/19 10:57) Past Medical History - Past Medical History Cardiac Medical History: Reports: Hx Atrial Fibrillation, Hx Coronary Artery Disease - cardiac stents x3, Hx Heart Attack - 2005, Hx Hypercholesterolemia, Hx Hypertension - medication Denies: Hx DVT, Hx Pulmonary Embolism Pulmonary Medical History: Denies: Hx Asthma, Hx Bronchitis, Hx COPD, Hx Pneumonia Neurological Medical History: Denies: Hx Cerebrovascular Accident, Hx Seizures Endocrine Medical History: Reports: Hx Diabetes Mellitus Type 2. Denies: Hx Hyperthyroidism, Hx Hypothyroidism Renal/ Medical History: Denies: Hx Peritoneal Dialysis GI Medical History: Reports: Hx Hiatal Hernia. Denies: Hx Cirrhosis, Hx Hepatitis, Hx Ulcer Musculoskeltal Medical History: Reports Hx Arthritis Psychiatric Medical History: Reports: Hx Depression Infectious Medical History: Denies: Hx Hepatitis Past Surgical History: Reports: Hx Cardiac Catheterization, Hx Coronary Stent, Hx Hysterectomy. Denies: Hx Mastectomy, Hx Open Heart Surgery, Hx Pacemaker - Immunizations Hx Diphtheria, Pertussis, Tetanus Vaccination: No History of Influenza Vaccine for 03/2017 - 08/2017 Season: Yes Influenza Administration Date for 03/2017 - 08/2017 Season: 06/19/17 Course - Laboratory Result Diagrams: 01/31/19 11:01 01/31/19 11:01 Doctor's Discharge - Discharge Referrals: YOSELIN MASON NP [Primary Care Provider] - Follow up as needed
[2019-01-31 11:14] LABS: ABSOLUTE EOSINOPHILS # (AUTO) 0.1 10^3/uL (0.0-0.6); ABSOLUTE LYMPHOCYTES (AUTO) 1.6 10^3/uL (0.5-4.7); ABSOLUTE MONOCYTES (AUTO) 0.5 10^3/uL (0.1-1.4); ABSOLUTE NEUT (AUTO) 3.5 10^3/uL (1.7-8.2); BASOPHILS % (AUTO) 0.8 % (0-2); EOSINOPHILS % (AUTO) 2.5 % (0-6); HEMATOCRIT 34.1 % (36.0-47.0); HEMOGLOBIN 10.9 g/dL (12.0-15.5); LYMPHOCYTES % (AUTO) 27.9 % (13-45); MEAN CORPUSCULAR HEMOGLOBIN 25.6 pg (27.0-33.4); MEAN CORPUSCULAR HGB CONC 31.8 g/dL (32.0-36.0); MEAN CORPUSCULAR VOLUME 81 fl (80-97); MONOCYTES % (AUTO) 9.1 % (3-13); PLATELET COUNT 273 10^3/uL (150-450); RED BLOOD COUNT 4.23 10^6/uL (3.72-5.28); RED CELL DISTRIBUTION WIDTH 17.2 % (11.5-14.0); SEGMENTED NEUTROPHILS % (AUTO) 59.7 % (42-78); TOTAL CELLS COUNTED % (AUTO) 100 %; WHITE BLOOD COUNT 5.8 10^3/uL (4.0-10.5)
--- NOTE | 2019-01-31 11:24 | EKG REPORT ---
SEVERITY:- ABNORMAL ECG - ATRIAL FIBRILLATION LVH WITH SECONDARY REPOLARIZATION ABNORMALITY : Confirmed by: Dennys Rolon 31-Jan-2019 11:24:05
--- NOTE | 2019-01-31 11:32 | RADIOLOGY REPORT (SQ) ---
EXAM DESCRIPTION: CHEST SINGLE VIEW COMPLETED DATE/TIME: 01/31/2019 11:08 am REASON FOR STUDY: bed 4 cp COMPARISON: 08/12/2018. NUMBER OF VIEWS: One view. TECHNIQUE: Single frontal radiographic view of the chest acquired. LIMITATIONS: None. FINDINGS: LUNGS AND PLEURA: No opacities, masses or pneumothorax. No pleural effusion. MEDIASTINUM AND HILAR STRUCTURES: No masses. Contour normal. HEART AND VASCULAR STRUCTURES: Heart enlarged without failure. Normal vasculature. BONES: No acute findings. HARDWARE: None in the chest. OTHER: No other significant finding. IMPRESSION: STABLE CARDIAC ENLARGEMENT. NO ACUTE FINDINGS. TECHNICAL DOCUMENTATION: JOB ID: [id number] [employer] All Rights Reserved Reading location - IP/workstation name: [email or web address]
[2019-01-31 11:38] LABS: ALBUMIN 4.6 g/dL (3.5-5.0); ALKALINE PHOSPHATASE 94 U/L (38-126); ANION GAP 10 (5-19); ASPARTATE AMINO TRANSFERASE 20 U/L (14-36); BILIRUBIN,DIRECT 0.2 mg/dL (0.0-0.4); BILIRUBIN,TOTAL 0.7 mg/dL (0.2-1.3); BLOOD UREA NITROGEN 13 mg/dL (7-20); CALCIUM 9.9 mg/dL (8.4-10.2); CARBON DIOXIDE 27 mmol/L (22-30); CHLORIDE 102 mmol/L (98-107); GLUCOSE 134 mg/dL (75-110); POTASSIUM 4.9 mmol/L (3.6-5.0); TOTAL PROTEIN 7.6 g/dL (6.3-8.2)
--- NOTE | 2019-01-31 11:59 | ER Document Report ---
ED General - General Chief Complaint: Chest Pain > 30 Stated Complaint: CHEST PAIN Time Seen by Provider: 01/31/19 10:56 Mode of Arrival: Ambulatory Information source: Patient TRAVEL OUTSIDE OF THE [place] IN LAST 30 DAYS: No - HPI Notes: 78-year-old female with a medical history of acid reflux, hypertension and A. fib presents to the ED for evaluation of chest pressure for the last week. Patient states that pain is squeezing, only happens at night. And only happens when she is laying flat. Reports she does get some shortness of breath while she is having chest pain. Patient anticoagulated on Xarelto, she does follow with Dr. Anderson, pulp operator in [place]. Patient reports she did have an endoscopy within this last year, does take omeprazole for this. Denies fevers, chills,palpitations, shortness of breath, dyspnea, nausea, vomiting, diarrhea, , hematuria,blurred vision, double vision, loss of vision, speech changes, LH, dizziness, syncope, headaches, wheezing, ST, URI, neck pain, weakness, bowel or bladder dysfunction, saddle anesthesia, numbness or tingling in bilateral upper or lower extremities equally, muscle paralysis, weakness in bilateral upper or lower extremities equally or rash - Related Data Allergies/Adverse Reactions: No Known Allergies Allergy (Verified 01/31/19 10:57) Past Medical History - General Information source: Patient - Social History Smoking Status: Never Smoker Family History: Reviewed & Not Pertinent - Past Medical History Cardiac Medical History: Reports: Hx Atrial Fibrillation, Hx Coronary Artery Disease - cardiac stents x3, Hx Heart Attack - 2005, Hx Hypercholesterolemia, Hx Hypertension - medication Denies: Hx DVT, Hx Pulmonary Embolism Pulmonary Medical History: Denies: Hx Asthma, Hx Bronchitis, Hx COPD, Hx Pneumonia Neurological Medical History: Denies: Hx Cerebrovascular Accident, Hx Seizures Endocrine Medical History: Reports: Hx Diabetes Mellitus Type 2. Denies: Hx Hyperthyroidism, Hx Hypothyroidism Renal/ Medical History: Denies: Hx Peritoneal Dialysis GI Medical History: Reports: Hx Hiatal Hernia. Denies: Hx Cirrhosis, Hx Hepatitis, Hx Ulcer Musculoskeletal Medical History: Reports Hx Arthritis Psychiatric Medical History: Reports: Hx Depression Infectious Medical History: Denies: Hx Hepatitis Past Surgical History: Reports: Hx Cardiac Catheterization, Hx Coronary Stent, Hx Hysterectomy. Denies: Hx Mastectomy, Hx Open Heart Surgery, Hx Pacemaker - Immunizations Hx Diphtheria, Pertussis, Tetanus Vaccination: No Hx Pneumococcal Vaccination: 06/19/07 Review of Systems - Review of Systems Constitutional: No symptoms reported EENT: No symptoms reported Cardiovascular: See HPI Respiratory: No symptoms reported Gastrointestinal: See HPI Genitourinary: No symptoms reported Female Genitourinary: No symptoms reported Musculoskeletal: No symptoms reported Skin: No symptoms reported Hematologic/Lymphatic: No symptoms reported Neurological/Psychological: No symptoms reported Physical Exam - Vital signs Vitals: Resp 21 H 01/31/19 10:45 Interpretation: Hypertensive - Notes Notes: PHYSICAL EXAMINATION: GENERAL: Chronically ill, well-nourished and in no acute distress. HEAD: Atraumatic, normocephalic. EYES: Pupils equal round and reactive to light, extraocular movements intact, conjunctiva are normal. ENT: Nares patent, oropharynx clear without exudates. Moist mucous membranes. NECK: Normal range of motion, supple without lymphadenopathy LUNGS: Breath sounds clear to auscultation bilaterally and equal. No wheezes rales or rhonchi. HEART: Irregularly regular without rvr without murmurs ABDOMEN: Gastric tenderness on palpation soft, other quadrants without tenderness on palpation nondistended abdomen. No guarding, no rebound. No masses appreciated. Female : deferred Musculoskeletal: Normal range of motion, no pitting or edema. No cyanosis. NEUROLOGICAL: Cranial nerves grossly intact. Normal speech, normal gait. Normal sensory, motor exams PSYCH: Normal mood, normal affect. SKIN: Warm, Dry, normal turgor, no rashes or lesions noted. Course - Re-evaluation Re-evalutation: 01/31/19 13:20 78-year-old female afebrile hypertensive in no distress for evaluation of chest pain for the last week, worse when it lays down at nighttime. Patient also reports epigastric pain she is treated for GERD with omeprazole. CBC negative for leukocytosis or anemia, CMP negative for hepatic or renal dysfunction, no electrolyte disturbances. First set of troponin was negative, EKG does show A. fib without RVR. Patient is on anticoagulated on Xarelto, coags are normal. Chest x-ray negative for cardiomegaly, pneumothorax, pneumonia. Awaiting for ultrasound for epigastric abdominal pain. GI cocktail given. 1320-patient is complaining of left-sided chest pain, tightness and squeezing. Obtain another EKG and troponin. will give patient nitro 0.4 sublingual. this chest pain is different than the chest pain that she has been explaining that is been occurring here for the last week which is only at night and when laying flat and is more epigastric to substernal. Chest pain resolved prior to nitro given SL. seconds ekg unchanges. Patient second troponin negative. Ultrasound showed pos sibly a common bile duct obstruction however lipase is normal. Patient did have a BNP of 1420, will start patient on IVP Lasix 40 mg. consulted with Ambreen Chavez NP, hospitalist, who accepted pt for cardiac observation. Patient to cardiac observation for trending troponins and EKG. Patient was agreeable with plan of care and agree with plan of care. - Vital Signs Vital signs: Temp Pulse Resp BP Pulse Ox 21 H 146/110 H 99 01/31/19 15:20 01/31/19 15:20 01/31/19 15:20 - Laboratory Result Diagrams: 01/31/19 11:01 01/31/19 11:01 Laboratory results interpreted by me: 01/31/19 01/31/19 01/31/19 11:01 11:01 13:24 Hgb 10.9 L Hct 34.1 L MCH 25.6 L MCHC 31.8 L RDW 17.2 H Glucose 134 H NT-Pro-B Natriuret Pep 1420 H Discharge - Discharge Clinical Impression: Unstable angina, CHF (congestive heart failure), HTN (hypertension) Condition: Stable Disposition: ADMITTED OBSERVATION Admitting Provider: Dut (Hospitalist) Unit Admitted: Telemetry
[2019-01-31] MEDS ORDERED: MAG HYDROX/AL HYDROX/SIMETH SUSP 30 ML UDCUP PO ONE (12:58)
[2019-01-31] MEDS ORDERED: LIDOCAINE 2% VISCOUS SOLN 20 ML UDCUP PO ONE (12:58)
[2019-01-31] MEDS ORDERED: METOCLOPRAMIDE HCL ORAL SOLN 10 MG/10 ML UDCUP PO ONE (12:58)
[2019-01-31] MEDS ORDERED: HYDRALAZINE HCL INJ/PF 20 MG/1 ML SDV IV ONE (12:58)
[2019-01-31] MEDS ORDERED: NITROGLYCERIN 0.4 MG/TAB 25 TAB/BOTTLE SL ONE (13:15)
[2019-01-31 13:19] LABS: INTERNATIONAL RATION (INR) 1.06; PROTHROMBIN TIME 13.8 SEC (11.4-15.4)
[2019-01-31 13:20] LABS: PARTIAL THROMBOPLASTIN TIME 29.2 SEC (23.5-35.8)
[2019-01-31] MEDS ORDERED: FUROSEMIDE INJ/PF 40 MG/4 ML SDV IV ONE (14:55)
[2019-01-31] MEDS ORDERED: ASPIRIN 81 MG TABLET, CHEWABLE PO ONE (15:00)
--- NOTE | 2019-01-31 15:21 | RADIOLOGY REPORT (SQ) ---
EXAM DESCRIPTION: U/S ABDOMEN LIMITED W/O DOP COMPLETED DATE/TIME: 01/31/2019 3:04 pm REASON FOR STUDY: epigastric pain COMPARISON: 07/09/2015 TECHNIQUE: Dynamic and static grayscale images acquired of the abdomen and recorded on PACS. Nettao víctor selected color Doppler and spectral images recorded. LIMITATIONS: None. FINDINGS: PANCREAS: No masses. Visualized pancreatic duct normal caliber. LIVER: There are some cysts in the liver. LIVER VASCULATURE: Normal directional flow of the main portal vein and hepatic veins. GALLBLADDER: No stones. Normal wall thickness. No pericholecystic fluid. ULTRASOUND-DETECTED MCNAMARA'S SIGN: Negative. INTRAHEPATIC DUCTS AND COMMON DUCT: Common bile duct is borderline at 7 mm. No intrahepatic ductal d ilatation is seen. INFERIOR VENA CAVA: Not imaged. AORTA: No aneurysm. RIGHT KIDNEY: Normal size, 10.1 cm. Normal echogenicity. No solid or suspicious masses. No hydroneph rosis. No calcifications. PERITONEAL AND RIGHT PLEURAL SPACE: No ascites or effusions. OTHER: No other significant findings. IMPRESSION: Borderline common bile duct. Correlate for biliary obstruction. No significant acute f indings are seen otherwise. TECHNICAL DOCUMENTATION: JOB ID: [id number] [employer]- All Rights Reserved Reading location - IP/workstation name: [email or web address]
[2019-01-31] MEDS ORDERED: ONDANSETRON HCL INJ/PF 4 MG/2 ML SDV IV PRN (16:00)
[2019-01-31] MEDS ORDERED: MAG HYDROX/AL HYDROX/SIMETH SUSP 30 ML UDCUP PO PRN (16:00)
[2019-01-31] MEDS ORDERED: ACETAMINOPHEN 325 MG TABLET PO PRN (16:00)
[2019-01-31] MEDS ORDERED: NITROGLYCERIN 0.4 MG/TAB 25 TAB/BOTTLE SL PRN (16:00)
[2019-01-31] MEDS ORDERED: GLUCAGON,HUMAN RECOMB 1 MG INJ IM PRN (16:05)
[2019-01-31] MEDS ORDERED: DEXTROSE 40% GEL 15 GM TUBE PO PRN ×2 (16:05)
[2019-01-31] MEDS ORDERED: DEXTROSE 50%-WATER 25 GM/50 ML DISP.SYRIN IV PRN ×2 (16:05)
[2019-01-31] MEDS: FAMOTIDINE 20 MG TABLET PO SCH (18:19)
[2019-01-31] MEDS ORDERED: HYDRALAZINE HCL INJ/PF 20 MG/1 ML SDV IV PRN (18:40)
[2019-01-31] MEDS ORDERED: NIFEDIPINE 30 MG TAB.ER.24 PO SCH (19:00)
--- NOTE | 2019-01-31 19:05 | PDOC H&P ---
History of Present Illness Admission Date/PCP: 01/31/19 15:21 ROSALINDA AYERS Patient complains of: chest pain History of Present Illness: MEGAN JUNG is a 78 year old female with a past medical history significant for OH with 3 stents, chronic A. fib (on Xarelto), hypertension, hyperlipidemia, diabetes mellitus, GERD, obesity who presented to the emergency department with a complaint of 1 week of epigastric chest tightness that is present when lying supine, not aggravated by food or activity. Patient reports that the pain was severe enough to wake her from sleep this morning which is what prompted her to seek medical evaluation. She states that the pain is nonradiating, described as tightness, without alleviating factors, unresponsive to sublingual nitroglycerin. 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 Anderson, within the last year but cannot recall the results but has not had a stress test in several years. Cardiac cath was completed in 2013 with stents placed to her OM and LAD.157/117, Evaluation in the emergency department revealed hypertensive urgency with blood pressures of 157/117, baseline anemia (hemoglobin 10.9), normal coags, normal chemistry, negative troponins x2, proBNP elevated to 1420, and Lipase is 120. EKG shows atrial fibrillation with LVH and prolonged QT interval, chest x-ray demonstrates cardiomegaly but no acute process. Abdominal ultrasound shows a borderline common bile duct but no other significant abdominal findings. Given the patient's hypertensive urgency and multiple risk factors she is admitted to the hospitalist service for chest pain rule out. Past Medical History Cardiac Medical History: Reports: Atrial Fibrillation, Coronary Artery Disease - cardiac stents x3, Myocardial Infarction - 2005, Hyperlipidema, Hypertension Denies: DVT, Pulmonary Embolism Pulmonary Medical History: Reports: None EENT Medical History: Reports: None Neurological Medical History: Denies: Ischemic CVA, Seizures Endocrine Medical History: Reports: Diabetes Mellitus Type 2, Obesity Denies: Hyperthyroidism, Hypothyroidism Renal/ Medical History: Reports: None Malignancy Medical History: Reports: None GI Medical History: Reports: Gastroesophageal Reflux Disease, Hiatal Hernia Denies: Cirrhosis, Hepatitis Musculoskeltal Medical History: Reports: Arthritis Psychiatric Medical History: Reports: Depression Hematology: Reports: Anemia Denies: Sickle Cell Disease Infectious Medical History: Reports: None Past Surgical History Past Surgical History: Reports: Cardiac Catheterization, Coronary Stent, Hysterectomy Denies: Amputation, Mastectomy, Pacemaker Social History Information Source: Patient Lives with: Alone Smoking Status: Former Smoker Frequency of Alcohol Use: None Hx Recreational Drug Use: No Drugs: None Hx Prescription Drug Abuse: No - Advance Directive Resuscitation Status: Do Not Resuscitate Surrogate healthcare decision maker:: The patients daughterAlyce, Family History Family History: Reviewed & Not Pertinent, Hyperlipidemia, Hypertension Parental Family History Reviewed: Yes Children Family History Reviewed: Yes Sibling(s) Family History Reviewed.: Yes Medication/Allergy Home Medications: Gabapentin [Neurontin 100 mg Capsule] 100 mg PO Q12 10/24/16 Aspirin [Ecotrin 81 mg EC Tablet] 81 mg PO DAILY 01/31/19 Atenolol [Tenormin 50 mg Tablet] 50 mg PO Q12 01/31/19 Carbidopa/Levodopa [Sinemet 25-100 mg Tablet] 1 each PO Q6 01/31/19 Lisinopril [Prinivil 10 mg Tablet] 20 mg PO DAILY 01/31/19 Metformin HCl [Glucophage 500 mg Tablet] 250 mg PO BIDACBS 01/31/19 Nifedipine [Procardia XL 30 mg Tablet] 60 mg PO QPM 01/31/19 Omeprazole 40 mg PO ACBRKFST 01/31/19 Ranitidine HCl 150 mg PO DAILY 01/31/19 Rivaroxaban [Xarelto] 20 mg PO QPM 01/31/19 Allergies/Adverse Reactions: No Known Allergies Allergy (Verified 01/31/19 10:57) Review of Systems Constitutional: ABSENT: chills, fever(s), headache(s), weight gain, weight loss Eyes: ABSENT: visual disturbances Ears: ABSENT: hearing changes Cardiovascular: PRESENT: as per HPI Respiratory: ABSENT: cough, hemoptysis Gastrointestinal: PRESENT: abdominal pain - epigastric discomfort. ABSENT: constipation, diarrhea, hematemesis, hematochezia, nausea, vomiting Genitourinary: ABSENT: dysuria, hematuria Musculoskeletal: ABSENT: joint swelling Integumentary: ABSENT: rash, wounds Neurological: ABSENT: abnormal gait, abnormal speech, confusion, dizziness, focal weakness, syncope Psychiatric: ABSENT: anxiety, depression, homidical ideation, suicidal ideation Endocrine: ABSENT: cold intolerance, heat intolerance, polydipsia, polyuria Hematologic/Lymphatic: ABSENT: easy bleeding, easy bruising Physical Exam Vital Signs: Temp Pulse Resp BP Pulse Ox 97.7 F 91 20 162/108 H 96 01/31/19 16:31 01/31/19 16:31 01/31/19 16:31 01/31/19 16:31 01/31/19 16:31 General appearance: PRESENT: no acute distress, cooperative, well-developed, well-nourished - overweight Head exam: PRESENT: atraumatic, normocephalic Eye exam: PRESENT: conjunctiva pink, EOMI, PERRLA. ABSENT: scleral icterus Ear exam: PRESENT: normal external ear exam Mouth exam: PRESENT: moist, tongue midline Neck exam: ABSENT: carotid bruit, JVD, lymphadenopathy, thyromegaly Respiratory exam: PRESENT: crackles - scant bibasilar crackles, decreased breath sounds, symmetrical, unlabored. ABSENT: rales, rhonchi, wheezes Cardiovascular exam: PRESENT: irregular rhythm, +S1, +S2. ABSENT: diastolic murmur, rubs, systolic murmur Pulses: PRESENT: normal dorsalis pedis pul Vascular exam: PRESENT: normal capillary refill GI/Abdominal exam: PRESENT: normal bowel sounds, soft. ABSENT: distended, guarding, mass, organolmegaly, rebound, tenderness Rectal exam: PRESENT: deferred Extremities exam: PRESENT: full ROM. ABSENT: calf tenderness, clubbing, pedal edema Neurological exam: PRESENT: alert, awake, oriented to person, oriented to place, oriented to time, oriented to situation, CN II-XII grossly intact. ABSENT: motor sensory deficit Psychiatric exam: PRESENT: appropriate affect, normal mood. ABSENT: homicidal ideation, suicidal ideation Skin exam: PRESENT: dry, intact, warm. ABSENT: cyanosis, rash Results Laboratory Results: 01/31/19 11:01 01/31/19 11:01 01/31/19 01/31/19 11:01 11:01 WBC 5.8 RBC 4.23 Hgb 10.9 L Hct 34.1 L MCV 81 MCH 25.6 L MCHC 31.8 L RDW 17.2 H Plt Count 273 Seg Neutrophils % 59.7 Lymphocytes % 27.9 Monocytes % 9.1 Eosinophils % 2.5 Basophils % 0.8 Absolute Neutrophils 3.5 Absolute Lymphocytes 1.6 Absolute Monocytes 0.5 Absolute Eosinophils 0.1 Absolute Basophils 0.0 Sodium 138.6 Potassium 4.9 Chloride 102 Carbon Dioxide 27 Anion Gap 10 BUN 13 Creatinine 0.71 Est GFR ( Amer) > 60 Est GFR (Non-Af Amer) > 60 Glucose 134 H Calcium 9.9 Total Bilirubin 0.7 AST 20 Alkaline Phosphatase 94 Total Protein 7.6 Albumin 4.6 Lipase 120.2 01/31/19 01/31/19 01/31/19 11:01 13:24 13:24 Troponin I < 0.012 < 0.012 NT-Pro-B Natriuret Pep 1420 H Impressions: Chest X-Ray 01/31/19 10:38 IMPRESSION: STABLE CARDIAC ENLARGEMENT. NO ACUTE FINDINGS. Abdomen Ultrasound 01/31/19 12:56 IMPRESSION: Borderline common bile duct. Correlate for biliary obstruction. No significant acute findings are seen otherwise. Assessment and Plan - Diagnosis (1) Atypical chest pain Is this a current diagnosis for this admission?: Yes Plan: Patient is admitted with atypical chest pain. EKG shows atrial fibrillation with LVH; no ischemic changes. Troponins negative x2; will continue to trend. CXR is benign. Abdominal ultrasound shows borderline common bile duct dilatation. We will plan for nuclear stress testing. Continue home dose Xarelto. Twice daily PPI. Antihypertensives as below. Daily aspirin and statin therapy. (2) Diabetes Qualifiers: Diabetes mellitus type: type 2 Diabetes mellitus care home insulin use: without care home use Is this a current diagnosis for this admission?: Yes Plan: We will check A1c with a.m. lab work. Hold home dose metformin while admitted. Cardiac/consistent carb diet. Accu-Cheks before meals and at bedtime with Humalog for sliding scale coverage. Hypoglycemia protocol in place. (3) GERD (gastroesophageal reflux disease) Is this a current diagnosis for this admission?: Yes Plan: Twice daily Protonix. Home dose Zantac. (4) CHF (congestive heart failure) Qualifiers: Heart failure type: unspecified Heart failure chronicity: acute on chronic Qualified Code(s): I50.9 - Heart failure, unspecified Is this a current diagnosis for this admission?: Yes Plan: Patient endorses a history of CHF. Continue home dose Xarelto. Continue home dose atenolol, lisinopril, Procardia for blood pressure control. Daily aspirin and statin therapy. Received IV furosemide 40 mg IV x1. Adequate diuresis. Cardiac diet. Daily weights. Strict I&O's. (5) HTN (hypertension) Qualifiers: Is this a current diagnosis for this admission?: Yes Plan: Antihypertensives as above. IV hydralazine as needed for blood pressure control. If patient remains hypertensive, consider increase of lisinopril and/or addition of thiazide diuretic. - Time Time Spent with patient: 35 or more minutes Medications reviewed and adjusted accordingly: Yes Anticipated discharge: Home Within: within 24 hours
[2019-01-31 19:13] LABS: HEMATOCRIT 34.7 % (36.0-47.0); MEAN CORPUSCULAR HEMOGLOBIN 25.3 pg (27.0-33.4); MEAN CORPUSCULAR HGB CONC 31.7 g/dL (32.0-36.0); MEAN CORPUSCULAR VOLUME 80 fl (80-97); PLATELET COUNT 268 10^3/uL (150-450); RED BLOOD COUNT 4.35 10^6/uL (3.72-5.28); RED CELL DISTRIBUTION WIDTH 16.9 % (11.5-14.0); WHITE BLOOD COUNT 5.3 10^3/uL (4.0-10.5)
[2019-01-31] MEDS: PANTOPRAZOLE SODIUM 40 MG TABLET.DR PO SCH (19:43)
[2019-01-31] MEDS ORDERED: RIVAROXABAN 10 MG TABLET PO SCH (19:45)
[2019-01-31] MEDS: GABAPENTIN 100 MG CAPSULE PO SCH (21:11)
[2019-01-31] MEDS: ATENOLOL 50 MG TABLET PO SCH (21:12)
[2019-01-31] MEDS ORDERED: ATORVASTATIN CALCIUM 10 MG TABLET PO SCH (22:00)
[2019-01-31] MEDS: INSULIN LISPRO 100 UNIT/ML 3 ML VIAL SUBCUT SCH (22:07)
[2019-01-31] MEDS: CARBIDOPA/LEVODOPA 25-100 MG TABLET PO SCH (23:39)
[2019-02-01] MEDS: PANTOPRAZOLE SODIUM 40 MG TABLET.DR PO SCH (05:02)
[2019-02-01] MEDS: CARBIDOPA/LEVODOPA 25-100 MG TABLET PO SCH ×2 (05:02→13:03)
[2019-02-01 05:59] LABS: APPEARANCE,URINE SLIGHTLY-CLOUDY; BILIRUBIN,URINE NEGATIVE (NEGATIVE); COLOR,URINE YELLOW; GLUCOSE, URINE NEGATIVE (NEGATIVE); KETONES,URINE TRACE mg/dL (NEGATIVE); LEUKOCYTE ESTERASE,URINE TRACE (NEGATIVE); NITRITE,URINE POSITIVE (NEGATIVE); PROTEIN,URINE NEGATIVE (NEGATIVE); URINE SPECIFIC GRAVITY 1.015; UROBILINOGEN,URINE NEGATIVE mg/dL (<2.0)
[2019-02-01 06:22] LABS: ANION GAP 12 (5-19); BLOOD UREA NITROGEN 21 mg/dL (7-20); CALCIUM 9.7 mg/dL (8.4-10.2); CARBON DIOXIDE 26 mmol/L (22-30); CHLORIDE 101 mmol/L (98-107); GLUCOSE 142 mg/dL (75-110)
[2019-02-01 06:34] LABS: POTASSIUM 3.9 mmol/L (3.6-5.0)
[2019-02-01] MEDS: INSULIN LISPRO 100 UNIT/ML 3 ML VIAL SUBCUT SCH ×2 (09:04→13:02)
[2019-02-01] MEDS ORDERED: LISINOPRIL 10 MG TABLET PO SCH (10:00)
[2019-02-01] MEDS ORDERED: ASPIRIN 81 MG TABLET, ENT COATED PO SCH (10:00)
[2019-02-01] MEDS ORDERED: (PENDING PHARMACY ID) (Ranitidine Hcl [Ranitidine Hcl] 150 MG) PO SCH (10:00)
[2019-02-01] MEDS: ATENOLOL 50 MG TABLET PO SCH (11:38)
[2019-02-01] MEDS: GABAPENTIN 100 MG CAPSULE PO SCH (11:38)
[2019-02-01] MEDS: FAMOTIDINE 20 MG TABLET PO SCH (11:38)
[2019-02-01] MEDS ORDERED: REGADENOSON INJ 0.4 MG/5 ML DISP.SYRIN IV ONE (12:22)
[2019-02-01 13:10] VITALS: BP 108/79
[2019-02-01] MEDS ORDERED: AMOXICILLIN TR/POT CLAVULANATE 500-125 MG TAB PO SCH (14:00)
[2019-02-01] MEDS ORDERED: NIFEDIPINE 30 MG TAB.ER.24 PO SCH (18:00)
--- NOTE | 2019-02-02 10:32 | EKG REPORT ---
SEVERITY:- ABNORMAL ECG - ATRIAL FIBRILLATION LVH WITH SECONDARY REPOLARIZATION ABNORMALITY BORDERLINE PROLONGED QT INTERVAL : Confirmed by: Dennys Rolon 02-Feb-2019 10:31:19
--- NOTE | 2019-02-03 21:41 | DRAGON STRESS TEST REPORT ---
Intravenous Lexiscan Cardiolite stress test using single photon emmision computerized tomography. Date of procedure: 02/01/2019. Ordering Provider: Ms. Ambreen Choi. Nurse practitioner. Patient's status: In Patient. Indication: Chest pain. Coronary risk factors: Age, diabetes mellitus, and hypertension. Resting EKG: Atrial Fibrillation with CVR.Diffuse NS ST-T changes. Stress EKG: No changes of ischemia. Reason for termination: Protocol. Conclusions: Normal EKG and hemodynamic response to IV Lexiscan. Nuclear data: At rest the patient was given 12.50 millicuries of technetium 99m sestamibi injected intravenously. As per protocol rest non gated SPECT images were obtained. Subsequently the patient was given intravenous Lexiscan at a dose of 0.4 mg in 5 mL intravenously, followed by flush with normal saline. Subsequently the stress dose of 36.7 millicuries of technetium 99m sestamibi was injected intravenously. As per protocol stress gated images were obtained. Nuclear interpretation: Review of images showed that all segments of the myocardium had normal perfusion at rest, and normal perfusion post stress with IV Lexiscan. All segments of the myocardium had normal motion, contraction, and thickening by gated study. T. I D. ratio was normal at 1.17. There is no transient ischemic dilatation of the left ventricle. Computer read rest, and stress left ventricular ejection fraction were 37 %, and 37 %, respectively. Visually both the stress and rest ejection fractions were normal, and greater than 55%. Conclusion: 1. There is no scintigraphic evidence of Lexiscan induced myocardial ischemia. 2. There is no scintigraphic evidence of myocardial infarction/scar. Recommendations: 1. Check echo for LV ejection fraction correlation. 2.Aggressive risk factor modification, and treating the underlying co- morbidities. [facility]
--- NOTE | 2019-02-05 12:29 | PDOC DISCHARGE SUMMARY ---
General - Admit/Disc Date/PCP Admission Date/Primary Care Provider: 01/31/19 15:21 PAULA WONGDIONNE-Maurilio Discharge Date: 02/01/19 - Discharge Diagnosis (1) Atypical chest pain Is this a current diagnosis for this admission?: Yes Summary: Patient was admitted with atypical chest pain. EKG shows atrial fibrillation with LVH; no ischemic changes. Troponins negative x3 CXR is benign. Abdominal ultrasound shows borderline common bile duct dilatation. Nuclear stress test were normal; at time of discharge, formal dictated report was not available. Spoke w/ Dr. Goldsmith; cleared for discharge to home with routine follow up. Patient is discharged to home in stable condition. She is advised to follow up with her PCP within 1 week. She is instructed to continue home dose Xarelto, PPI, and her home antihypertensive regiment. She is encouraged to return to the emergency department as needed for concerning symptoms. (2) Diabetes Is this a current diagnosis for this admission?: Yes Summary: A1C 6.5% Dietary compliance and lifestyle modification are encouraged. Resume home dose metformin at discharge. (3) GERD (gastroesophageal reflux disease) Is this a current diagnosis for this admission?: Yes Summary: Continue home dose omeprazole and zantac. (4) CHF (congestive heart failure) Is this a current diagnosis for this admission?: Yes Summary: Patient endorses a history of CHF. Continue home dose Xarelto. Continue home dose atenolol, lisinopril, Procardia for blood pressure control. Daily aspirin and statin therapy. Recommend continued cardiac diet and daily weights. Follow up with PCP within 1 week and with established ecotherapist, Dr. Anderson as instructed. (5) HTN (hypertension) Is this a current diagnosis for this admission?: Yes Summary: Well controlled on home medication regiment. - Additional Information Resuscitation Status: Do Not Resuscitate Discharge Diet: Cardiac, Diabetic Discharge Activity: Activity As Tolerated, Balance Activity w/Rest, Slowly Increase Activity Prescriptions: Amox Tr/Potassium Clavulanate [Augmentin "500" Tablet] 1 tab PO Q8 #21 tablet Home Medications: Gabapentin [Neurontin 100 mg Capsule] 100 mg PO Q12 10/24/16 Aspirin [Ecotrin 81 mg EC Tablet] 81 mg PO DAILY 01/31/19 Atenolol [Tenormin 50 mg Tablet] 50 mg PO Q12 01/31/19 Carbidopa/Levodopa [Sinemet 25-100 mg Tablet] 1 each PO Q6 01/31/19 Lisinopril [Prinivil 10 mg Tablet] 20 mg PO DAILY 01/31/19 Metformin HCl [Glucophage 500 mg Tablet] 250 mg PO BIDACBS 01/31/19 Nifedipine [Procardia XL 30 mg Tablet] 60 mg PO QPM 01/31/19 Omeprazole 40 mg PO ACBRKFST 01/31/19 Ranitidine HCl 150 mg PO DAILY 01/31/19 Rivaroxaban [Xarelto] 20 mg PO QPM 01/31/19 Acetaminophen [Tylenol 325 mg Tablet] 650 mg PO Q4HP PRN tablet 02/01/19 Amox Tr/Potassium Clavulanate [Augmentin "500" Tablet] 1 tab PO Q8 #21 tablet 02/01/19 History of Present Illness History of Present Illness: MEGAN JUNG is a 78 year old female with a past medical history significant for [place] with 3 stents, chronic A. fib (on Xarelto), hypertension, hyperlipidemia, diabetes mellitus, GERD, obesity who presented to the emergency department with a complaint of 1 week of epigastric chest tightness that is present when lying supine, not aggravated by food or activity. Patient reports that the pain was severe enough to wake her from sleep this morning which is what prompted her to seek medical evaluation. She states that the pain is nonradiating, described as tightness, without alleviating factors, unresponsive to sublingual nitr oglycerin. She reports that she had an echocardiogram done at her established ecotherapist, Dr. Anderson, within the last year but cannot recall the results but has not had a stress test in several years. Cardiac cath was completed in 2012 with stents placed to her OM and LAD.157/117, Evaluation in the emergency department revealed hypertensive urgency with blood pressures of 157/117, baseline anemia (hemoglobin 10.9), normal coags, normal chemistry, negative troponins x2, proBNP elevated to 1420, and Lipase is 120. EKG shows atrial fibrillation with LVH and prolonged QT interval, chest x-ray demonstrates cardiomegaly but no acute process. Abdominal ultrasound shows a borderline common bile duct but no other significant abdominal findings. Given the patient's hypertensive urgency and multiple risk factors she is admitted to the hospitalist service for chest pain rule out. Physical Exam Vital Signs: Temp Pulse Resp BP Pulse Ox 97.5 F 87 19 108/79 94 02/01/19 15:47 02/01/19 15:47 02/01/19 15:47 02/01/19 15:47 02/01/19 15:47 General appearance: PRESENT: no acute distress, cooperative, well-developed, well-nourished - overweight Head exam: PRESENT: atraumatic, normocephalic Eye exam: PRESENT: conjunctiva pink, EOMI, PERRLA. ABSENT: scleral icterus Ear exam: PRESENT: normal external ear exam Mouth exam: PRESENT: moist, tongue midline Neck exam: ABSENT: carotid bruit, JVD, lymphadenopathy, thyromegaly Respiratory exam: PRESENT: clear to auscultation deo. ABSENT: rales, rhonchi, wheezes Cardiovascular exam: PRESENT: RRR. ABSENT: diastolic murmur, rubs, systolic murmur Pulses: PRESENT: normal dorsalis pedis pul Vascular exam: PRESENT: normal capillary refill GI/Abdominal exam: PRESENT: normal bowel sounds, soft. ABSENT: distended, guarding, mass, organolmegaly, rebound, tenderness Rectal exam: PRESENT: deferred Extremities exam: PRESENT: full ROM. ABSENT: calf tenderness, clubbing, pedal edema Neurological exam: PRESENT: alert, awake, oriented to person, oriented to place, oriented to time, oriented to situation, CN II-XII grossly intact. ABSENT: motor sensory deficit Psychiatric exam: PRESENT: appropriate affect, normal mood. ABSENT: homicidal ideation, suicidal ideation Skin exam: PRESENT: dry, intact, warm. ABSENT: cyanosis, rash Results Laboratory Results: 01/31/19 19:02 02/01/19 05:24 01/31/19 01/31/19 01/31/19 11:01 13:24 13:24 Troponin I < 0.012 < 0.012 NT-Pro-B Natriuret Pep 1420 H 01/31/19 19:02 Troponin I < 0.012 NT-Pro-B Natriuret Pep Impressions: Chest X-Ray 01/31/19 10:38 IMPRESSION: STABLE CARDIAC ENLARGEMENT. NO ACUTE FINDINGS. Abdomen Ultrasound 01/31/19 12:56 IMPRESSION: Borderline common bile duct. Correlate for biliary obstruction. No significant acute findings are seen otherwise. Qualifiers - * PATIENT BEING DISCHARGED WITH ANY OF THE FOLLOWING DIAGNOSIS: No Acute Heart Failure - Is this a Heart Failure Patient?: Yes Documentation of LVEF assessment?: Planned for after discharge LVEF < 40%?: No- if no continue to question #3 3. Anticoagulant therapy for permanect/persistent/paraoxysmal Afib or Aflutter: Yes Plan Discharge Plan: Patient is discharged home in stable condition. She is advised to follow up with her primary care provider within 1 week. She is instructed to notify her ecotherapist of your for chest pain/stress testing; follow up with Dr. Anderson as instructed. Take medications as prescribed. She is encouraged to return to the emergency department as needed for concerning symptoms. Time Spent: Greater than 30 Minutes
== END 2019-02-01 16:00 | disposition home or self-care (01) ==
LOC: ER 10:34 → EH 15:21 → 5 17:22
PROVIDERS: ADMIT Family Medicine; ATTEND Family Medicine
DX: R07.89 Other chest pain (principal); I48.2 Chronic atrial fibrillation; E11.9 Type 2 diabetes mellitus without complications; I16.0 Hypertensive urgency; I11.0 Hypertensive heart disease with heart failure; I50.9 Heart failure, unspecified; K21.9 Gastro-esophageal reflux disease without esophagitis; D64.9 Anemia, unspecified; K83.8 Other specified diseases of biliary tract; R10.13 Epigastric pain; R06.02 Shortness of breath; I25.2 Old myocardial infarction; I25.10 Atherosclerotic heart disease of native coronary artery without angina pectoris; Z79.899 Other long term (current) drug therapy; Z66 Do not resuscitate; Z79.01 Long term (current) use of anticoagulants; Z79.84 Long term (current) use of oral hypoglycemic drugs; Z95.5 Presence of coronary angioplasty implant and graft; Z60.2 Problems related to living alone; Z87.891 Personal history of nicotine dependence; Z79.82 Long term (current) use of aspirin
CPT/HCPCS: 93005; 99285; 96374; 96375; 36415 ×2; 82962 ×2; 83690; 85025; 85610; 85730; 80048; 80053; 81001; 84484; 83036; 83880; 93017; 71045; 76705; 78452; 93010; G0378 ×2; A9500; J2785; A9270 ×15; J1940; J0360; J3490 ×3; Q9969; J1815

== ENCOUNTER → 2019-03-08 | Outpatient (CLI) | payer MEDICARE ==
--- NOTE | 2019-03-08 08:32 | RADIOLOGY REPORT (SQ) ---
EXAM DESCRIPTION: MRI ABDOMEN WITHOUT COMPLETED DATE/TIME: 03/08/2019 7:59 am REASON FOR STUDY: MRCP OTHER SPECIFIED DISEASES OF BILIARY TRACT (K83.8), RUQ PAIN (R10.11) K83.8 O THER SPECIFIED DISEASES OF BILIARY TRACT R10.11 RIGHT UPPER QUADRANT PAIN COMPARISON: None. TECHNIQUE: Noncontrast MRCP. Source and MIP images reviewed. LIMITATIONS: None. FINDINGS: GALLBLADDER: Normal. INTRAHEPATIC DUCTS: Nondilated. EXTRAHEPATIC DUCTS: Common duct is normal caliber. No dilatation of the pancreatic duct. No ductal filling defects noted. PANCREAS: Generally homogeneous, no gross mass or significant signal alteration. No surrounding infl ammatory changes or fluid. Pancreatic duct is normal. LIVER, SPLEEN, KIDNEYS, ADRENALS: Multiple small hepatic cysts. The spleen, adrenals and kidneys are unremarkable. VESSELS: No evidence of aneurysm. Grossly appropriate flow voids in the major vascular structures. LUNG BASES: Grossly clear. OTHER: No other significant finding. IMPRESSION: No intra or extrahepatic biliary ductal dilatation. The common bile duct is measured at approximately 6 mm. No filling defects. Multiple hepatic cysts. TECHNICAL DOCUMENTATION: JOB ID: [id number] [employer]- All Rights Reserved Reading location - IP/workstation name: [email or web address]
--- NOTE | 2019-03-08 11:00 | RADIOLOGY REPORT (SQ) ---
EXAM DESCRIPTION: NM HIDA SCAN WITH CCK COMPLETED DATE/TIME: 03/08/2019 10:50 am REASON FOR STUDY: OTHER SPECIFIED DISEASES OF BILIARY TRACT (K83.8), RUQ PAIN (R10.11) K83.8 OTHER SPECIFIED DISEASES OF BILIARY TRACT R10.11 RIGHT UPPER QUADRANT PAIN COMPARISON: None. RADIONUCLIDE AND DOSE: DOSAGE RADIONUCLIDE: 5 millicuries Tc99m Mebrofenin. DOSAGE CCK: 1.6 micrograms. DOSAGE MORPHINE: Not required. The route of agent administration: Intravenous TECHNIQUE: Serial imaging right upper quadrant up to 60 minutes following injection of radionuclide. CCK injected after gallbladder visualized. LIMITATIONS: None. FINDINGS: LIVER: Normal visualization without areas of photopenia. INTRAHEPATIC BILE DUCTS: Normal size and no delay in visualization. COMMON BILE DUCT: Normal without dilatation. GALLBLADDER: Normal visualization. Calculated ejection fraction of 59%. Normal range is greater th an 35%. PHYSICAL RESPONSE: Patients presenting complaint mildly reproduced. OTHER: No other significant finding. IMPRESSION: NORMAL STUDY WITHOUT CYSTIC OR COMMON DUCT OBSTRUCTION. NORMAL GALLBLADDER EJECTION FRA CTION. NO EVIDENCE FOR BILIARY DYSKINESIS. TECHNICAL DOCUMENTATION: JOB ID: [id number] [email or web address]- All Rights Reserved Reading location - IP/workstation name: [email or web address]
== END ==
LOC: RAD 06:55
PROVIDERS: ATTEND Family Medicine
DX: K83.8 Other specified diseases of biliary tract (principal); R10.11 Right upper quadrant pain
CPT/HCPCS: 74181; 78227; J2805; A9537; Q9969

== ENCOUNTER → 2019-03-20 | Outpatient (CLI) | payer MEDICARE ==
--- NOTE | 2019-03-20 12:34 | RADIOLOGY REPORT (SQ) ---
EXAM DESCRIPTION: UGI SERIES COMPLETED DATE/TIME: 03/20/2019 9:46 am REASON FOR STUDY: GENERALIZED ABDOMINAL PAIN R10.84 GENERALIZED ABDOMINAL PAIN COMPARISON: None. TECHNIQUE: Under fluoroscopic guidance, patient ingested effervescent granules followed by thick and thin barium. Fluoroscopic spot images and routine radiographic images acquired and stored on PACS. 12 MM BARIUM TABLET GIVEN: Yes. No significant delay in passage. LIMITATIONS: None. FLUOROSCOPY TIME: FLUORO TIME: 2.3 minutes of fluoroscopy was used. 24 images saved to PACS. FINDINGS: NEUROMUSCULAR COORDINATION OF SWALLOW: Normal. No aspiration. ESOPHAGEAL MOTILITY: Normal peristalsis. No esophageal spasm. ESOPHAGEAL MUCOSA: Normal mucosa without masses or ulceration. GASTRO-ESOPHAGEAL JUNCTION: Sliding hiatal hernia with free-flowing gastroesophageal reflux. 12 mm b arium tablet passed through the GE junction without delay. STOMACH: Loss of haustral markings of the stomach which may indicate gastritis. No masses or ulcerat ions are identified. GASTRIC OUTLET: No delay in emptying. Normal pylorus. DUODENAL BULB: Normal distention. No spasm or ulceration. DUODENUM: Mucosa normal. No extrinsic masses or malrotation. PROXIMAL SMALL BOWEL: Mucosa normal. No extrinsic masses or malrotation. NON-GI TRACT STRUCTURES: No significant finding. OTHER: No other significant finding. IMPRESSION: 1. SMOOTH APPEARANCE OF THE GASTRIC MUCOSA MAY INDICATE ATROPHIC GASTRITIS. 2. SLIDING HIATAL HERNIA WITH FREE-FLOWING GASTROESOPHAGEAL REFLUX. COMMENT: Quality ID [id number]: Final reports for procedures using fluoroscopy that document radiation exp osure indices, or exposure time and number of fluorographic images (if radiation exposure indices are not available) TECHNICAL DOCUMENTATION: JOB ID: [id number] [email or web address]- All Rights Reserved Reading location - IP/workstation name: [email or web address]
== END ==
LOC: RAD 07:54
PROVIDERS: ATTEND Family Medicine
DX: K21.9 Gastro-esophageal reflux disease without esophagitis (principal); K44.9 Diaphragmatic hernia without obstruction or gangrene; R10.84 Generalized abdominal pain
CPT/HCPCS: 74247

== ENCOUNTER 2019-04-18 09:32 | Day surgery (SDC) | payer MEDICARE ==
[2019-04-18] MEDS ORDERED: ATENOLOL 50 MG TABLET PO PRN (10:30)
[2019-04-18] MEDS ORDERED: PROPOFOL INJ 200 MG/20 ML VIAL IV ONE (11:56)
[2019-04-18 12:19] LABS: INTERNATIONAL RATION (INR) 1.09; PARTIAL THROMBOPLASTIN TIME 28.3 SEC (23.5-35.8); PROTHROMBIN TIME 14.1 SEC (11.4-15.4)
[2019-04-18] MEDS ORDERED: OXYCODONE-ACETAMINOPHEN 5-325 MG TABLET PO PRN ×2 (12:35)
[2019-04-18] MEDS ORDERED: DIPHENHYDRAMINE HCL 50 MG/ML VIAL IV PRN (12:35)
[2019-04-18] MEDS ORDERED: PROMETHAZINE HCL INJ 25 MG/1 ML VIAL IV PRN ×2 (12:35)
[2019-04-18] MEDS ORDERED: FENTANYL CITRATE INJ/PF 100 MCG/2 ML AMPUL IV PRN ×3 (12:35)
[2019-04-18] MEDS ORDERED: MEPERIDINE HCL/PF INJ 25 MG/1 ML DISP.SYRIN IV PRN (12:35)
--- NOTE | 2019-04-18 13:44 | Operative Report ---
Operative Report DATE OF SURGERY: 04/18/19 Operative Report: The risks benefits and alternatives of the procedure explained to the patient in detail and informed consent is obtained.A GIF Olympus video scope was inserted into the patient's mouth and hypopharynx, the esophagus is identified intubated and insufflated, the scope was then advanced through the esophagus stomach and duodenum ,retroflexion maneuver is done, the esophagus stomach and first and second portions of the duodenum examined. patient had been on Eliquis that has already been discontinued Anesthesia wanted and insisted on PT/INR. However the therapeutic level of Eliquis will not be reflected in the either the prothrombin or PTT. PREOPERATIVE DIAGNOSIS: Epigastric pain rule out peptic ulcer disease POSTOPERATIVE DIAGNOSIS: Gastritis/gastric erosions status post biopsy OPERATION: EGD with biopsy SURGEON: STEVE MERINO ANESTHESIA: LMAC TISSUE REMOVED OR ALTERED: As noted above. COMPLICATIONS: None. ESTIMATED BLOOD LOSS: None. INTRAOPERATIVE FINDINGS: As noted above. PROCEDURE: Patient tolerated the procedure well. No immediate postprocedure complications are noted. Patient is discharged in good condition. Discharge date 04/18/2019. Discharge diet: Regular. Discharge activity: Regular. 2 to 3-week follow-up to discuss findings. Patient is instructed to call the office or proceed to the emergency room should there be any further problems or questions. Wait on the pathology.
[2019-04-18 14:24] VITALS: BP 163/109
--- NOTE | 2019-04-18 16:59 | EKG REPORT ---
SEVERITY:- ABNORMAL ECG - ATRIAL FIBRILLATION LVH WITH SECONDARY REPOLARIZATION ABNORMALITY : Confirmed by: Immanuel Valdivia MD 18-Apr-2019 16:59:13
== END 2019-04-18 14:00 | disposition home or self-care (01) ==
LOC: OROUT 09:32
PROVIDERS: ATTEND Internal Medicine Gastroenterology
DX: K29.50 Unspecified chronic gastritis without bleeding (principal); E11.9 Type 2 diabetes mellitus without complications; I25.2 Old myocardial infarction; I11.9 Hypertensive heart disease without heart failure; R06.02 Shortness of breath; Z79.899 Other long term (current) drug therapy; Z79.01 Long term (current) use of anticoagulants
CPT/HCPCS: 43239; 36415; 82962; 82947; 85610; 85730; 88305 ×2; 93005; 93010; A9270; J2704; 731

== ENCOUNTER 2019-08-09 18:45 | Observation (INO) | payer MEDICARE ==
[2019-08-09 19:40] LABS: ABSOLUTE BASOPHILS # (AUTO) 0.1 10^3/uL (0.0-0.2); ABSOLUTE EOSINOPHILS # (AUTO) 0.1 10^3/uL (0.0-0.6); ABSOLUTE LYMPHOCYTES (AUTO) 1.7 10^3/uL (0.5-4.7); ABSOLUTE MONOCYTES (AUTO) 0.6 10^3/uL (0.1-1.4); ABSOLUTE NEUT (AUTO) 3.7 10^3/uL (1.7-8.2); BASOPHILS % (AUTO) 1.1 % (0-2); EOSINOPHILS % (AUTO) 0.8 % (0-6); HEMATOCRIT 34.6 % (36.0-47.0); HEMOGLOBIN 10.5 g/dL (12.0-15.5); LYMPHOCYTES % (AUTO) 27.2 % (13-45); MEAN CORPUSCULAR HEMOGLOBIN 23.2 pg (27.0-33.4); MEAN CORPUSCULAR HGB CONC 30.5 g/dL (32.0-36.0); MEAN CORPUSCULAR VOLUME 76 fl (80-97); MONOCYTES % (AUTO) 10.6 % (3-13); PLATELET COUNT 276 10^3/uL (150-450); RED BLOOD COUNT 4.53 10^6/uL (3.72-5.28); RED CELL DISTRIBUTION WIDTH 17.8 % (11.5-14.0); SEGMENTED NEUTROPHILS % (AUTO) 60.3 % (42-78); TOTAL CELLS COUNTED % (AUTO) 100 %; WHITE BLOOD COUNT 6.1 10^3/uL (4.0-10.5)
[2019-08-09 19:41] LABS: INTERNATIONAL RATION (INR) 2.86; PROTHROMBIN TIME 30.6 SEC (11.4-15.4)
--- NOTE | 2019-08-09 19:43 | RADIOLOGY REPORT (SQ) ---
EXAM DESCRIPTION: CHEST SINGLE VIEW COMPLETED DATE/TIME: 08/09/2019 7:24 pm REASON FOR STUDY: bed 20 sepsis protocol COMPARISON: 01/31/2019 TECHNIQUE: Single frontal radiographic view of the chest acquired. NUMBER OF VIEWS: One view. LIMITATIONS: None. FINDINGS: LUNGS AND PLEURA: No pneumothorax. Small basilar airspace opacities subsegmental atelecta sis and small pleural effusions. MEDIASTINUM AND HILAR STRUCTURES: Stable. HEART AND VASCULAR STRUCTURES: Stable. BONES: No acute findings. HARDWARE: None in the chest. OTHER: No other significant finding. IMPRESSION: Small basilar airspace opacities subsegmental atelectasis and small pleural effusions. TECHNICAL DOCUMENTATION: JOB ID: [id number] [place]-[id number] 2010 [employer]- All Rights Reserved Reading location - IP/workstation name: [email or web address]
[2019-08-09 19:51] LABS: ALBUMIN 3.9 g/dL (3.5-5.0); ALKALINE PHOSPHATASE 69 U/L (38-126); ANION GAP 12 (5-19); ASPARTATE AMINO TRANSFERASE 35 U/L (14-36); BILIRUBIN,DIRECT 0.4 mg/dL (0.0-0.4); BILIRUBIN,TOTAL 1.4 mg/dL (0.2-1.3); BLOOD UREA NITROGEN 26 mg/dL (7-20); CALCIUM 9.6 mg/dL (8.4-10.2); CARBON DIOXIDE 23 mmol/L (22-30); CHLORIDE 104 mmol/L (98-107); GLUCOSE 139 mg/dL (75-110); POTASSIUM 4.3 mmol/L (3.6-5.0)
[2019-08-09] MEDS ORDERED: DILTIAZEM HCL INJ 25 MG/5 ML VIAL IV ONE (20:08)
[2019-08-09] MEDS ORDERED: NORMAL SALINE 500 ML IV ONE (20:08)
[2019-08-09] MEDS ORDERED: DILTIAZEM HCL/D5W 125 MG/125 ML RTUINJ IV PRN (20:08)
--- NOTE | 2019-08-09 20:12 | ER Document Report ---
ED General - General Chief Complaint: Breathing Difficulty Stated Complaint: SHORTNESS OF BREATH Time Seen by Provider: 08/09/19 20:00 Notes: Patient is a 78-year-old female that comes to the emergency department for chief complaint of shortness of breath. She states that this started over the past couple of days but became much worse tonight. She denies chest pain, dizziness, cough, fever/chills, nausea/vomiting, or any other complaints. She reports a history of atrial fibrillation, hypertension, she states she is on metoprolol and Xarelto for this. She states that she actually stopped all of her medications last March, saw her gas station operator Dr. Anderson and was started back on a couple of medications. She denies medical history otherwise. She comes from home, daughter is at bedside. TRAVEL OUTSIDE OF THE [place] IN LAST 30 DAYS: No - Related Data Allergies/Adverse Reactions: zolpidem [From Ambien] Adverse Reaction (Verified 04/18/19 10:06) Home Medications: xeralto. metprolol Past Medical History - General Information source: Patient - Social History Smoking Status: Never Smoker Frequency of alcohol use: None Drug Abuse: None Lives with: Family Family History: Reviewed & Not Pertinent, Hyperlipidemia, Hypertension Patient has suicidal ideation: No Patient has homicidal ideation: No - Past Medical History Cardiac Medical History: Reports: Hx Atrial Fibrillation, Hx Coronary Artery Disease - cardiac stents x3, Hx Heart Attack - 2005, Hx Hypercholesterolemia, Hx Hypertension Denies: Hx DVT, Hx Pulmonary Embolism Pulmonary Medical History: Denies: Hx Asthma, Hx Bronchitis, Hx COPD, Hx Pneumonia Neurological Medical History: Denies: Hx Cerebrovascular Accident, Hx Seizures Endocrine Medical History: Reports: Hx Diabetes Mellitus Type 2. Denies: Hx Hyperthyroidism, Hx Hypothyroidism Renal/ Medical History: Denies: Hx Peritoneal Dialysis GI Medical History: Reports: Hx Gastroesophageal Reflux Disease, Hx Hiatal Hernia. Denies: Hx Cirrhosis, Hx Hepatitis, Hx Ulcer Musculoskeletal Medical History: Reports Hx Arthritis Psychiatric Medical History: Reports: Hx Depression Infectious Medical History: Denies: Hx Hepatitis Past Surgical History: Reports: Hx Cardiac Catheterization, Hx Coronary Stent, Hx Hysterectomy. Denies: Hx Mastectomy, Hx Open Heart Surgery, Hx Pacemaker - Immunizations Hx Diphtheria, Pertussis, Tetanus Vaccination: Yes Hx Pneumococcal Vaccination: 03/19/19 Review of Systems - Review of Systems Constitutional: No symptoms reported EENT: No symptoms reported Cardiovascular: See HPI Respiratory: See HPI Gastrointestinal: No symptoms reported Genitourinary: No symptoms reported Female Genitourinary: No symptoms reported Musculoskeletal: No symptoms reported Skin: No symptoms reported Hematologic/Lymphatic: No symptoms reported Neurological/Psychological: No symptoms reported Physical Exam - Vital signs Vitals: Temp Pulse BP Pulse Ox 97.5 F 145 H 126/89 H 100 08/09/19 18:52 08/09/19 18:52 08/09/19 18:52 08/09/19 18:52 - Notes Notes: GENERAL: Alert, interacts well. HEAD: Normocephalic, atraumatic. EYES: Pupils equal, round, and reactive to light. Extraocular movements intact. ENT: Oral mucosa moist, tongue midline. Oropharynx unremarkable. Airway patent. LUNGS: Clear to auscultation bilaterally, no wheezes, rales, or rhonchi. No respiratory distress. HEART: Tachycardia, irregularly irregular, no overt murmur heard ABDOMEN: Soft, non-tender. Non-distended. EXTREMITIES: Moves all 4 extremities spontaneously. No edema, normal radial and dorsalis pedis pulses bilaterally. No cyanosis. BACK: no cervical, thoracic, lumbar midline tenderness. No saddle anesthesia, normal distal neurovascular exam. Moves all extremities in full range of motion. NEUROLOGICAL: Alert and oriented x3. Normal speech. Cranial nerves II through XII grossly intact. PSYCH: Normal affect, normal mood. SKIN: Warm, dry, normal turgor. No rashes or lesions noted. Course - Re-evaluation Re-evalutation: On my evaluation patient is complaining of shortness of breath, her heart rate is 145, atrial fibrillation with rapid ventricular response. Her blood pressure is slightly borderline at 109 systolic, she will be given smaller dose of Cardizem at 10 mg bolus, given 500 cc fluid bolus, and placed on Cardizem drip subsequently if we obtain a response. After 15 minutes or so from the bolus and starting the fluids patient started to improve, heart rate is trending down to 110s and 120s, she will be placed on the drip. On reevaluation we did increase the drip from 5 to 10 mcg and after this her heart rate improved to approximately 100 systolic. Patient now is asymptomatic, has no current complaints. She states she feels much better. CBC shows chronic anemia but otherwise unremarkable. Chemistry nonspecific, lactic acid was ordered from triage and is elevated, nonspecific, no overt pneumonia on chest x-ray, no leukocytosis, no fever, no cough. Urine does show evidence of infection but is not severe, culture placed, started Rocephin. Lactic acid trended and unremarkable. Discussed patient with Dr. martin, no additional recommendations other than admission to hospitalist for atrial fibrillation with RVR requiring Cardizem drip. Patient states understanding and agreement. 08/09/[address] Prasad, patient accepted to IMCU observation. - Vital Signs Vital signs: Temp Pulse Resp BP Pulse Ox 97.5 F 145 H 27 H 90/56 L 89 L 08/09/19 18:52 08/09/19 18:52 08/10/19 02:01 08/10/19 02:01 08/10/19 02:01 - Laboratory Result Diagrams: 08/09/19 19:00 08/09/19 19:00 Laboratory results interpreted by me: 08/09/19 08/09/19 08/09/19 19:00 19:00 19:00 Hgb 10.5 L Hct 34.6 L MCV 76 L MCH 23.2 L MCHC 30.5 L RDW 17.8 H PT 30.6 H BUN 26 H Est GFR (MDRD) Non-Af 55 L Glucose 139 H Lactic Acid Total Bilirubin 1.4 H Urine Protein Urine Urobilinogen Ur Leukocyte Esterase 08/09/19 08/09/19 08/09/19 19:00 20:30 22:02 Hgb Hct MCV MCH MCHC RDW PT BUN Est GFR (MDRD) Non-Af Glucose Lactic Acid 3.5 H 2.7 H Total Bilirubin Urine Protein 100 H Urine Urobilinogen 4.0 H Ur Leukocyte Esterase SMALL H Discharge - Discharge Clinical Impression: Atrial fibrillation with RVR, Shortness of breath Condition: Stable Disposition: ADMITTED OBSERVATION Admitting Provider: Osmar (Hospitalist) Unit Admitted: [facility]
[2019-08-09 20:48] LABS: VENOUS BLOOD BASE EXCESS -0.8 mmol/L; VENOUS BLOOD HCO3 24.5 mmol/L (20-32); VENOUS BLOOD PCO2 42.8 mmHg (35-63); VENOUS BLOOD PH 7.38 (7.30-7.42)
[2019-08-09 22:21] LABS: APPEARANCE,URINE SLIGHTLY-CLOUDY; BILIRUBIN,URINE NEGATIVE (NEGATIVE); GLUCOSE, URINE NEGATIVE (NEGATIVE); KETONES,URINE NEGATIVE (NEGATIVE); LEUKOCYTE ESTERASE,URINE SMALL (NEGATIVE); NITRITE,URINE NEGATIVE (NEGATIVE); PROTEIN,URINE 100 mg/dL (NEGATIVE); URINE SPECIFIC GRAVITY 1.025
[2019-08-09 22:22] LABS: COLOR,URINE DARK YELLOW
[2019-08-09] MEDS ORDERED: CEFTRIAXONE 1 GM/D5W RTU 1 GM/50 ML RTUPB IV ONE (22:26)
[2019-08-10] MEDS ORDERED: MAG HYDROX/AL HYDROX/SIMETH SUSP 30 ML UDCUP PO PRN (00:47)
[2019-08-10] MEDS ORDERED: MAGNESIUM HYDROXIDE SUSP 30 ML UDCUP PO PRN (00:47)
[2019-08-10] MEDS ORDERED: ONDANSETRON HCL INJ/PF 4 MG/2 ML SDV IV PRN (00:47)
[2019-08-10] MEDS ORDERED: ACETAMINOPHEN 325 MG TABLET PO PRN (00:52)
[2019-08-10] MEDS ORDERED: LORAZEPAM INJ 2 MG/1 ML VIAL IV PRN (00:52)
[2019-08-10] MEDS ORDERED: DILTIAZEM HCL 60 MG TABLET PO ONE (01:00)
[2019-08-10] MEDS ORDERED: DILTIAZEM HCL 240 MG CAPSULE.CR PO ONE (01:00)
[2019-08-10] MEDS ORDERED: PANTOPRAZOLE SODIUM 20 MG TABLET.DR PO SCH (06:00)
--- NOTE | 2019-08-10 06:31 | PDOC H&P ---
History of Present Illness Admission Date/PCP: 08/09/19 23:37 GIO ROSENTHAL DO Patient complains of: Dyspnea History of Present Illness: MEGAN JUNG is a 78 year old female who presented to the emergency room with a 3-day history of dyspnea. Patient admitted progressively worsening dyspnea over the last 3 days it became acutely worse (severe) tonight just prior to coming to the emergency room. She denies any associated or accompanying signs and symptoms. She admits prior similar episodes related to her atrial fibrillation. She further admits a recent medication adjustment by her [employer] operations intelligence chief Dr. Anderson as he started her back on medications that she had previously discontinued on her own. She denies identification of any aggravating or ameliorating factors for her dyspnea. In the emergency room she was found to have atrial fibrillation with a rapid ventricular response which improved with intravenous diltiazem and a diltiazem infusion as well as a volume bolus of IV fluid. Patient's heart rate was well controlled her vital signs were stable however it was elected to observe her with a goal of converting her to oral Cardizem and being able to discharge her in the morning. Patient was therefore admitted observation status. Past Medical History Cardiac Medical History: Reports: Atrial Fibrillation, Coronary Artery Disease - cardiac stents x3, Myocardial Infarction - 2005, Hyperlipidema, Hypertension Denies: Congestive Heart Failure, DVT, Pulmonary Embolism Pulmonary Medical History: Denies: Asthma, Bronchitis, Chronic Obstructive Pulmonary Disease (COPD), Pneumonia EENT Medical History: Denies: Cataracts, Ears - Hearing aids Neurological Medical History: Denies: Ischemic CVA, Seizures Endocrine Medical History: Reports: Diabetes Mellitus Type 2 Denies: Diabetes Mellitus Type 1, Hyperthyroidism, Hypothyroidism Renal/ Medical History: Denies: Chronic Kidney Disease, Nephrolithiasis Malignancy Medical History: Reports: None GI Medical History: Reports: Gastroesophageal Reflux Disease, Hiatal Hernia Denies: Cirrhosis, Crohn's Disease, Hepatitis, Ulcerative Colitis Musculoskeltal Medical History: Reports: Arthritis Denies: Gout Skin Medical History: Denies: Eczema, Psoriasis Psychiatric Medical History: Reports: Depression Denies: Alcohol Dependency, Substance Abuse, Tobacco Dependency Traumatic Medical History: Reports: None Hematology: Reports: Anemia, Other - On chronic anticoagulation with Xarelto Denies: Bleeding Tendencies Infectious Medical History: Reports: None Past Surgical History Past Surgical History: Reports: Cardiac Catheterization, Coronary Stent, Hysterectomy Social History Information Source: Patient, Relative Lives with: Family Smoking Status: Never Smoker Electronic Cigarette use?: No Frequency of Alcohol Use: None Hx Recreational Drug Use: No Drugs: None Hx Prescription Drug Abuse: No - Advance Directive Resuscitation Status: Full Code Surrogate healthcare decision maker:: Leti Petersn Family History Family History: Hyperlipidemia, Hypertension. denies: CAD, DM Parental Family History Reviewed: Yes Children Family History Reviewed: No Sibling(s) Family History Reviewed.: Yes Medication/Allergy Home Medications: Gabapentin [Neurontin 100 mg Capsule] 100 mg PO Q12 10/24/16 Aspirin [Ecotrin 81 mg EC Tablet] 81 mg PO DAILY 01/31/19 Atenolol [Tenormin 50 mg Tablet] 50 mg PO Q12 01/31/19 Carbidopa/Levodopa [Sinemet 25-100 mg Tablet] 1 each PO Q6 01/31/19 Lisinopril [Prinivil 10 mg Tablet] 20 mg PO DAILY 01/31/19 Metformin HCl [Glucophage 500 mg Tablet] 250 mg PO BIDACBS 01/31/19 Nifedipine [Procardia XL 30 mg Tablet] 60 mg PO QPM 01/31/19 Omeprazole 40 mg PO ACBRKFST 01/31/19 Ranitidine HCl 150 mg PO DAILY 01/31/19 Rivaroxaban [Xarelto] 20 mg PO QPM 01/31/19 Acetaminophen [Tylenol 325 mg Tablet] 650 mg PO Q4HP PRN tablet 02/01/19 Allergies/Adverse Reactions: zolpidem [From Ambien] Adverse Reaction (Verified 04/18/19 10:06) Review of Systems Constitutional: ABSENT: chills, fever(s) Eyes: ABSENT: visual disturbances, other - Eye pain Ears: ABSENT: hearing changes, other - Ear pain Nose, Mouth, and Throat: ABSENT: mouth pain, sore throat Cardiovascular: ABSENT: chest pain, dyspnea on exertion, edema, orthropnea, palpitations Respiratory: PRESENT: as per HPI, dyspnea. ABSENT: cough Gastrointestinal: ABSENT: abdominal pain, constipation, diarrhea, nausea, vomiting Genitourinary: ABSENT: dysuria, hematuria Musculoskeletal: ABSENT: back pain, joint swelling Integumentary: ABSENT: pruritus, rash Neurological: ABSENT: confusion, convulsions, focal weakness, memory loss, syncope Psychiatric: ABSENT: anxiety, depression Endocrine: ABSENT: cold intolerance, heat intolerance, polydipsia, polyphagia, polyuria Hematologic/Lymphatic: ABSENT: easy bleeding, easy bruising Allergic/Immunologic: ABSENT: seasonal rhinorrhea Physical Exam Vital Signs: Temp Pulse Resp BP Pulse Ox 97.5 F 145 H 25 H 132/98 H 90 L 08/09/19 18:52 08/09/19 18:52 08/09/19 23:31 08/09/19 23:31 08/09/19 23:31 Intake & Output 08/08/19 08/09/19 08/10/19 23:59 23:59 23:59 Intake Total 500 Output Total 30 Balance 470 Weight 78 kg General appearance: PRESENT: no acute distress, cooperative Head exam: PRESENT: atraumatic, normocephalic Eye exam: PRESENT: conjunctiva pink. ABSENT: conjunctival injection, scleral icterus Ear exam: PRESENT: normal external ear exam. ABSENT: bleeding, drainage Mouth exam: PRESENT: dry mucosa, neck supple Neck exam: ABSENT: thyromegaly, tracheal deviation Respiratory exam: PRESENT: clear to auscultation deo, symmetrical, unlabored Cardiovascular exam: PRESENT: irregular rhythm. ABSENT: clicks, gallop, rubs Pulses: PRESENT: normal radial pulses, normal dorsalis pedis pul Vascular exam: PRESENT: normal capillary refill. ABSENT: pallor GI/Abdominal exam: PRESENT: normal bowel sounds, soft. ABSENT: tenderness Rectal exam: PRESENT: deferred Extremities exam: ABSENT: joint swelling, pedal edema Musculoskeletal exam: ABSENT: deformity, dislocation Neurological exam: PRESENT: alert, oriented to person, oriented to place, oriented to time, oriented to situation, CN II-XII grossly intact. ABSENT: mo tor sensory deficit Psychiatric exam: PRESENT: appropriate affect, normal mood Skin exam: PRESENT: dry, intact, warm. ABSENT: jaundice, rash, urticaria Results Laboratory Results: 08/09/19 19:00 08/09/19 19:00 08/09/19 08/09/19 08/09/19 19:00 19:00 19:00 WBC 6.1 RBC 4.53 Hgb 10.5 L Hct 34.6 L MCV 76 L MCH 23.2 L MCHC 30.5 L RDW 17.8 H Plt Count 276 Seg Neutrophils % 60.3 VBG pH VBG pCO2 VBG HCO3 VBG Base Excess Sodium 139.4 Potassium 4.3 Chloride 104 Carbon Dioxide 23 Anion Gap 12 BUN 26 H Creatinine 0.98 Est GFR ( Amer) > 60 Glucose 139 H Lactic Acid 3.5 H Calcium 9.6 Magnesium Total Bilirubin 1.4 H AST 35 Alkaline Phosphatase 69 Total Protein 7.0 Albumin 3.9 TSH Urine Color Urine Appearance Urine pH Ur Specific [place] Urine Protein Urine Glucose (UA) Urine Ketones Urine Blood Urine Nitrite Ur Leukocyte Esterase Urine WBC (Auto) Urine RBC (Auto) 08/09/19 08/09/19 08/09/19 19:00 19:00 20:30 WBC RBC Hgb Hct MCV MCH MCHC RDW Plt Count Seg Neutrophils % VBG pH 7.38 VBG pCO2 42.8 VBG HCO3 24.5 VBG Base Excess -0.8 Sodium Potassium Chloride Carbon Dioxide Anion Gap BUN Creatinine Est GFR ( Amer) Glucose Lactic Acid Calcium Magnesium 1.6 Total Bilirubin AST Alkaline Phosphatase Total Protein Albumin TSH 3.33 Urine Color Urine Appearance Urine pH Ur Specific [place] Urine Protein Urine Glucose (UA) Urine Ketones Urine Blood Urine Nitrite Ur Leukocyte Esterase Urine WBC (Auto) Urine RBC (Auto) 08/09/19 08/09/19 20:30 22:02 WBC RBC Hgb Hct MCV MCH MCHC RDW Plt Count Seg Neutrophils % VBG pH VBG pCO2 VBG HCO3 VBG Base Excess Sodium Potassium Chloride Carbon Dioxide Anion Gap BUN Creatinine Est GFR ( Amer) Glucose Lactic Acid 2.7 H Calcium Magnesium Total Bilirubin AST Alkaline Phosphatase Total Protein Albumin TSH Urine Color DARK YELLOW Urine Appearance SLIGHTLY-CLOUDY Urine pH 5.0 Ur Specific [place] 1.025 Urine Protein 100 H Urine Glucose (UA) NEGATIVE Urine Ketones NEGATIVE Urine Blood NEGATIVE Urine Nitrite NEGATIVE Ur Leukocyte Esterase SMALL H Urine WBC (Auto) 26 Urine RBC (Auto) 2 08/09/19 19:00 Troponin I < 0.012 Impressions: Chest X-Ray 08/09/19 19:03 IMPRESSION: Small basilar airspace opacities subsegmental atelectasis and small pleural effusions. Assessment and Plan - Diagnosis (1) Atrial fibrillation with RVR Is this a current diagnosis for this admission?: Yes (2) GERD (gastroesophageal reflux disease) Is this a current diagnosis for this admission?: Yes (3) Hyperlipidemia Qualifiers: Hyperlipidemia type: pure hypercholesterolemia Qualified Code(s): E78.00 - Pure hypercholesterolemia, unspecified Is this a current diagnosis for this admission?: Yes (4) HTN (hypertension) Qualifiers: Is this a current diagnosis for this admission?: Yes (5) CAD (coronary artery disease) Qualifiers: Coronary Disease-Associated Artery/Lesion type: [place] artery [place] vs. transplanted heart: [place] heart Associated angina: without angina Qualified Code(s): I25.10 - Atherosclerotic heart disease of [place] coronary artery without angina pectoris Is this a current diagnosis for this admission?: Yes (6) Diabetes mellitus type 2 in nonobese Is this a current diagnosis for this admission?: Yes - Plan Summary Summary: Patient is placed in observation [facility] bed assignment where she will receive routine supportive and symptomatic cares. Her diltiazem infusion will be discontinued after starting an oral therapy regimen with an initial dose of 60 mg of Cardizem orally followed by later administration of a 240 mg Cardizem CD dose. Patient's cardiac enzymes will be obtained on a serial basis. If her heart rate stays well controlled, vital signs remained stable and her cardiac enzymes are negative I would anticipate discharge in the morning. Patient will use morphine sulfate 2 to 4 mg IV every 4 hours as needed for chest pain. She will have Ativan 1 mg IV every 4 hours as needed for anxiety. She will receive a cardiac and diabetic restricted diet. - Time Time Spent with patient: 25-34 minutes Medications reviewed and adjusted accordingly: Yes Anticipated discharge: Home - Inpatient Certification Based on my medical assessment, after consideration of the patient's comorbidities, presenting symptoms, or acuity I expect that the services needed warrant INPATIENT care.: No I certify that my determination is in accordance with my understanding of Medicare's requirements for reasonable and necessary INPATIENT services [42 CFR 412.3e].: No Medical Necessity: Significant Comorbidiites Make Outpatient Treatment Too Risky, Need Close Monitoring Due to Risk of Patient Decompensation, Need For Continuous Telemetry Monitoring
[2019-08-10 07:29] LABS: CREATINE KINASE MB 5.73 ng/mL (<4.55)
[2019-08-10 07:33] LABS: TROPONIN I < 0.012 ng/mL
--- NOTE | 2019-08-10 09:10 | PDOC DISCHARGE SUMMARY ---
Impression - Admit/DC Date/PCP Admission Date/Primary Care Provider: 08/09/19 23:37 GIO ROSENTHAL DO Discharge Date: 08/10/19 - Discharge Diagnosis (1) Longstanding persistent atrial fibrillation Is this a current diagnosis for this admission?: Yes (2) Hyperglycemia due to type 2 diabetes mellitus Is this a current diagnosis for this admission?: Yes (3) Shortness of breath Is this a current diagnosis for this admission?: Yes (4) GERD (gastroesophageal reflux disease) Is this a current diagnosis for this admission?: Yes (5) HTN (hypertension) Is this a current diagnosis for this admission?: Yes (6) Atrial fibrillation with RVR Is this a current diagnosis for this admission?: Yes (7) Urinary tract infection Is this a current diagnosis for this admission?: Yes - Assessment Summary: Patient is placed in observation [facility] bed assignment where she will receive routine supportive and symptomatic cares. Her diltiazem infusion will be discontinued after starting an oral therapy regimen with an initial dose of 60 mg of Cardizem orally followed by later administration of a 240 mg Cardizem CD dose. Patient's cardiac enzymes will be obtained on a serial basis. If her heart rate stays well controlled, vital signs remained stable and her cardiac enzymes are negative I would anticipate discharge in the morning. Patient will use morphine sulfate 2 to 4 mg IV every 4 hours as needed for chest pain. She will have Ativan 1 mg IV every 4 hours as needed for anxiety. She will receive a cardiac and diabetic restricted diet. 08/10/2019 The patient is doing well this morning. Her heart rate is under better control. Her rate is typically in the 90s or just above 100. Her breathing is comfortable. It is appropriate for discharge to home. It was noted that a urinalysis suggested infection and this may have contributed to the RVR response. - Additional Information Resuscitation Status: Full Code Discharge Diet: Cardiac, Diabetic Discharge Activity: Activity As Tolerated, Slowly Increase Activity Referrals: GIO ROSENTHAL DO [Primary Care Provider] - Follow up as needed Home Medications: Atenolol [Tenormin 50 mg Tablet] 50 mg PO DAILY 08/10/19 Metoprolol Tartrate [Lopressor 25 mg Tablet] 25 mg PO Q12 08/10/19 Rivaroxaban [Xarelto] 20 mg PO QPM 08/10/19 History of Present Illiness History of Present Illness: MEGAN JUNG is a 78 year old female who presented to the emergency room with a 3-day history of dyspnea. Patient admitted progressively worsening dyspnea over the last 3 days it became acutely worse (severe) tonight just prior to coming to the emergency room. She denies any associated or accompanying signs and symptoms. She admits prior similar episodes related to her atrial fibrillation. She further admits a recent medication adjustment by her fuel cell test engineer Dr. Anderson as he started her back on medications that she had previously discontinued on her own. She denies identification of any aggravating or ameliorating factors for her dyspnea. In the emergency room she was found to have atrial fibrillation with a rapid ventricular response which improved with intravenous diltiazem and a diltiazem infusion as well as a volume bolus of IV fluid. Patient's heart rate was well controlled her vital signs were stable however it was elected to observe her with a goal of converting her to oral Cardizem and being able to discharge her in the morning. Patient was therefore admitted observation status. Hospital Course Hospital Course: With the use of intravenous diltiazem initially and an oral dose of diltiazem her heart rate slowed nicely. I did find out from the patient's daughter that the patient in fact stopped all of her medicines and so the gabapentin and Sinemet and the rest of the medications listed on her home medication regimen she actually is not taking. She saw Dr. Anderson since she is taking the Xarelto as well as metoprolol tartrate 25 mg twice daily and that was it. I agreed that she should remain on just those medications and follow-up with Dr. Anderson. In addition her urinalysis suggested infection and so I told her daughter that an infection could trigger an episode of rapid ventricular response and that I would send a prescription for an antibiotic for the patient to read the pharmacy for her. Physical Exam Vital Signs: Temp Pulse Resp BP Pulse Ox 97.5 F 145 H 20 122/82 97 08/09/19 18:52 08/09/19 18:52 08/10/19 08:00 08/10/19 08:01 08/10/19 08:00 Intake & Output 08/09/19 08/10/19 08/11/19 06:59 06:59 06:59 Intake Total 598 Output Total 30 Balance 568 Weight 79.5 kg General appearance: PRESENT: no acute distress, cooperative, well-developed Head exam: PRESENT: atraumatic, normocephalic Respiratory exam: PRESENT: clear to auscultation deo, symmetrical, unlabored. ABSENT: rales, rhonchi, tachypnea, wheezes Cardiovascular exam: PRESENT: irregular rhythm, systolic murmur - Intermittent based on rhythm. 08/22 GI/Abdominal exam: PRESENT: normal bowel sounds, soft. ABSENT: distended, guarding, mass, tenderness Neurological exam: PRESENT: alert, awake, oriented to person, oriented to situation Results Laboratory Results: WBC 6.1 10^3/uL (4.0-10.5) 08/09/19 19:00 RBC 4.53 10^6/uL (3.72-5.28) 08/09/19:00 Hgb 10.5 g/dL (12.0-15.5) L 08/09/19:00 Hct 34.6 % (36.0-47.0) L 08/09/19:00 MCV 76 fl (80-97) L 08/09/19:00 MCH 23.2 pg (27.0-33.4) L 08/09/19:00 MCHC 30.5 g/dL (32.0-36.0) L 08/09/19 19:00 RDW 17.8 % (11.5-14.0) H 08/09/19 19:00 Plt Count 276 10^3/uL (150-450) 08/09/19 19:00 Lymph % (Auto) 27.2 % (13-45) 08/09/19 19:00 [place] % (Auto) 10.6 % (3-13) 08/09/19 19:00 Eos % (Auto) 0.8 % (0-6) 08/09/19 19:00 Baso % (Auto) 1.1 % (0-2) 08/09/19 19:00 Absolute Neuts (auto) 3.7 10^3/uL (1.7-8.2) 08/09/19 19:00 Absolute Lymphs (auto) 1.7 10^3/uL (0.5-4.7) 08/09/19 19:00 Absolute Monos (auto) 0.6 10^3/uL (0.1-1.4) 08/09/19 19:00 Absolute Eos (auto) 0.1 10^3/uL (0.0-0.6) 08/09/19 19:00 Absolute Basos (auto) 0.1 10^3/uL (0.0-0.2) 08/09/19 19:00 Seg Neutrophils % 60.3 % (42-78) 08/09/19 19:00 PT 30.6 SEC (11.4-15.4) H 08/09/19 19:00 INR 2.86 08/09/19 19:00 VBG pH 7.38 (7.30-7.42) 08/09/19 20:30 VBG pCO2 42.8 mmHg (35-63) 08/09/19 20:30 VBG HCO3 24.5 mmol/L (20-32) 08/09/19 20:30 VBG Base Excess -0.8 mmol/L 08/09/19 20:30 Sodium 139.4 mmol/L (137-145) 08/09/19 19:00 Potassium 4.3 mmol/L (3.6-5.0) 08/09/19 19:00 Chloride 104 mmol/L (98-107) 08/09/19 19:00 Carbon Dioxide 23 mmol/L (22-30) 08/09/19 19:00 Anion Gap 12 (5-19) 08/09/19 19:00 BUN 26 mg/dL (7-20) H 08/09/19 19:00 Creatinine 0.98 mg/dL (0.52-1.25) 08/09/19 19:00 Est GFR ( Amer) > 60 (>60) 08/09/19 19:00 Est GFR (MDRD) Non-Af 55 (>60) L 08/09/19 19:00 Glucose 139 mg/dL (75-110) H 08/09/19 19:00 Lactic Acid 2.2 mmol/L (0.7-2.1) H 08/10/19 05:52 Calcium 9.6 mg/dL (8.4-10.2) 08/09/19 19:00 Magnesium 1.6 mg/dL (1.6-2.3) 08/09/19 19:00 Total Bilirubin 1.4 mg/dL (0.2-1.3) H 08/09/19 19:00 Direct Bilirubin 0.4 mg/dL (0.0-0.4) 08/09/19 19:00 Neonat Total Bilirubin Not Reportable 08/09/19 19:00 Neonat Direct Bilirubin Not Reportable 08/09/19 19:00 Neonat Indirect Bili Not Reportable 08/09/19 19:00 AST 35 U/L (14-36) 08/09/19 19:00 ALT 21 U/L (<35) 08/09/19 19:00 Alkaline Phosphatase 69 U/L (38-126) 08/09/19 19:00 Creatine Kinase 136 U/L (30-135) H 08/09/19 19:00 CK-MB (CK-2) 5.73 ng/mL (<4.55) H 08/10/19 05:52 Troponin I < 0.012 ng/mL 08/10/19 05:52 Total Protein 7.0 g/dL (6.3-8.2) 08/09/19 19:00 Albumin 3.9 g/dL (3.5-5.0) 08/09/19 19:00 TSH 3.33 uIU/mL (0.47-4.68) 08/09/19 19:00 Urine Color DARK YELLOW 08/09/19 22:02 Urine Appearance SLIGHTLY-CLOUDY 08/09/19 22:02 Urine pH 5.0 (5.0-9.0) 08/09/19 22:02 Ur Specific [place] 1.025 08/09/19 22:02 Urine Protein 100 mg/dL (NEGATIVE) H 08/09/19 22:02 Urine Glucose (UA) NEGATIVE mg/dL (NEGATIVE) 08/09/19 22:02 Urine Ketones NEGATIVE mg/dL (NEGATIVE) 08/09/19 22:02 Urine Blood NEGATIVE (NEGATIVE) 08/09/19 22:02 Urine Nitrite NEGATIVE (NEGATIVE) 08/09/19 22:02 Urine Bilirubin NEGATIVE (NEGATIVE) 08/09/19 22:02 Urine Urobilinogen 4.0 mg/dL (<2.0) H 08/09/19 22:02 Ur Leukocyte Esterase SMALL (NEGATIVE) H 08/09/19 22:02 Urine WBC (Auto) 26 /HPF 08/09/19 22:02 Urine RBC (Auto) 2 /HPF 02/21/20 22:02 U Hyaline Cast (Auto) 8 /LPF 08/09/19 22:02 Urine Bacteria (Auto) 3+ /HPF 08/09/19 22:02 Squamous Epi Cells Auto 2 /HPF 08/09/19 22:02 Urine Mucus (Auto) MOD /LPF 08/09/19 22:02 Urine Ascorbic Acid NEGATIVE (NEGATIVE) 08/09/19 22:02 08/09/19 08/10/19 19:00 05:52 CK-MB (CK-2) 5.73 H Troponin I < 0.012 < 0.012 Impressions: Chest X-Ray 08/09/19 19:03 IMPRESSION: Small basilar airspace opacities subsegmental atelectasis and small pleural effusions. Plan Health Concerns: The patient's compliance is an issue. There is likely mild dementia in play but she did stop taking all of her medicines. Evidently she needs surgery and Dr. Anderson is trying to stabilize her at this time. Plan of Treatment: The nurse in the emergency department called to inform me that when the family a rrived to mixing picker tender the patient they stated that the patient was not on any of the medications listed except. I did have a chance to talk to the patient's daughter. She in fact did confirm that her dose of metoprolol is metoprolol tartrate 25 mg twice daily and the Xarelto. In addition I informed the daughter that it looks like there may be a urinary infection and this would have made her heart rate go higher. I will send a [facility] an [facility]. I told her not to accept the remainder of the prescriptions that I sent because of the medication changes. Goals: Stabilization of her cardiac status so that she may have a surgery that is pending. Time Spent: Greater than 30 Minutes Stroke Is this a Stroke Patient?: No Acute Heart Failure - Is this a Heart Failure Patient?: No
[2019-08-10] MEDS ORDERED: ATENOLOL 50 MG TABLET PO ONE (10:00)
[2019-08-10 10:04] VITALS: BP 124/74
[2019-08-10] MEDS ORDERED: METOPROLOL TARTRATE 25 MG TABLET PO ONE (10:13)
--- NOTE | 2019-08-10 22:05 | EKG REPORT ---
SEVERITY:- ABNORMAL ECG - ATRIAL FIBRILLATION, V-RATE 106-161 LEFT AXIS DEVIATION PROBABLE LVH WITH SECONDARY REPOL ABNRM BORDERLINE PROLONGED QT INTERVAL : Confirmed by: Dennys Rolon 10-Aug-2019 22:05:22
== END 2019-08-10 11:00 | disposition home or self-care (01) ==
LOC: ER 18:45 → EH 23:37
PROVIDERS: ADMIT Emergency Medicine; ATTEND Emergency Medicine
DX: I48.11 Longstanding persistent atrial fibrillation (principal); E11.65 Type 2 diabetes mellitus with hyperglycemia; R06.02 Shortness of breath; K21.9 Gastro-esophageal reflux disease without esophagitis; I10 Essential (primary) hypertension; N39.0 Urinary tract infection, site not specified; I25.10 Atherosclerotic heart disease of native coronary artery without angina pectoris; E78.00 Pure hypercholesterolemia, unspecified; D64.89 Other specified anemias; I25.2 Old myocardial infarction; Z91.14 Patient's other noncompliance with medication regimen; Z95.5 Presence of coronary angioplasty implant and graft; Z82.49 Family history of ischemic heart disease and other diseases of the circulatory system
CPT/HCPCS: 93005; 96376; 99285; 96365; 96366; 96368; 36415 ×2; 87040; 87086; 82553; 82550; 83605 ×2; 83735; 84443; 85025; 85610; 87088; 80053; 81001; 84484 ×2; 87186; 82803; 71045; 93010; G0378; A9270 ×3; J3490 ×3; J7040; J0696

== ENCOUNTER 2019-08-12 07:52 | Inpatient (IN) | payer MEDICARE ==
[2019-08-12 09:01] LABS: ABSOLUTE LYMPHOCYTES (AUTO) 1.2 10^3/uL (0.5-4.7); ABSOLUTE MONOCYTES (AUTO) 0.5 10^3/uL (0.1-1.4); BASOPHILS % (AUTO) 0.7 % (0-2); EOSINOPHILS % (AUTO) 0.6 % (0-6); HEMATOCRIT 33.7 % (36.0-47.0); HEMOGLOBIN 10.2 g/dL (12.0-15.5); LYMPHOCYTES % (AUTO) 21.4 % (13-45); MEAN CORPUSCULAR HEMOGLOBIN 22.8 pg (27.0-33.4); MEAN CORPUSCULAR HGB CONC 30.1 g/dL (32.0-36.0); MEAN CORPUSCULAR VOLUME 76 fl (80-97); MONOCYTES % (AUTO) 8.2 % (3-13); PLATELET COUNT 307 10^3/uL (150-450); RED BLOOD COUNT 4.45 10^6/uL (3.72-5.28); RED CELL DISTRIBUTION WIDTH 17.4 % (11.5-14.0); SEGMENTED NEUTROPHILS % (AUTO) 69.1 % (42-78); TOTAL CELLS COUNTED % (AUTO) 100 %; WHITE BLOOD COUNT 5.7 10^3/uL (4.0-10.5)
[2019-08-12 09:17] LABS: ALBUMIN 3.6 g/dL (3.5-5.0); ALKALINE PHOSPHATASE 69 U/L (38-126); ANION GAP 12 (5-19); ASPARTATE AMINO TRANSFERASE 75 U/L (14-36); BILIRUBIN,DIRECT 0.2 mg/dL (0.0-0.4); BILIRUBIN,TOTAL 1.4 mg/dL (0.2-1.3); BLOOD UREA NITROGEN 31 mg/dL (7-20); CALCIUM 9.2 mg/dL (8.4-10.2); CARBON DIOXIDE 23 mmol/L (22-30); CHLORIDE 103 mmol/L (98-107); CREATINE KINASE 146 U/L (30-135); GLUCOSE 138 mg/dL (75-110); POTASSIUM 4.4 mmol/L (3.6-5.0); TOTAL PROTEIN 6.4 g/dL (6.3-8.2)
[2019-08-12 09:26] LABS: CREATINE KINASE MB 6.17 ng/mL (<4.55)
[2019-08-12] MEDS ORDERED: DILTIAZEM HCL INJ 25 MG/5 ML VIAL IV ONE (09:29)
[2019-08-12] MEDS ORDERED: METOPROLOL TARTRATE PF/INJ 5 MG/5 ML SDV IV ONE (09:30)
--- NOTE | 2019-08-12 09:32 | ER Document Report ---
ED General - General Chief Complaint: Palpitations Stated Complaint: PALPITATIONS Time Seen by Provider: 08/12/19 09:15 Primary Care Provider: GIO ROSENTHAL DO [Primary Care Provider] - Follow up as needed Mode of Arrival: Medic Information source: Patient Notes: 78-year-old woman presents to the emergency department with a complaint of shortness of breath, mild chest discomfort and pain. Presents with symptoms which began on Monday. EKG reveals A. fib with RVR rate ranging from the 120- 130 range. She has had a prior history of atrial fibrillation is presently on Xarelto and metoprolol. She was seen in the emergency department this weekend and put on Ceftin for a UTI. TRAVEL OUTSIDE OF THE [place] IN LAST 30 DAYS: No - Related Data Allergies/Adverse Reactions: zolpidem [From Ambien] Adverse Reaction (Verified 04/18/19 10:06) Past Medical History - Social History Smoking Status: Unknown if Ever Smoked Family History: Hyperlipidemia, Hypertension. denies: CAD, DM Patient has suicidal ideation: No Patient has homicidal ideation: No - Past Medical History Cardiac Medical History: Reports: Hx Atrial Fibrillation, Hx Coronary Artery Disease - cardiac stents x3, Hx Heart Attack - 2005, Hx Hypercholesterolemia, Hx Hypertension Denies: Hx Congestive Heart Failure, Hx DVT, Hx Pulmonary Embolism Pulmonary Medical History: Denies: Hx Asthma, Hx Bronchitis, Hx COPD, Hx Pneumonia Neurological Medical History: Denies: Hx Cerebrovascular Accident, Hx Seizures Endocrine Medical History: Reports: Hx Diabetes Mellitus Type 2. Denies: Hx Diabetes Mellitus Type 1, Hx Hyperthyroidism, Hx Hypothyroidism Renal/ Medical History: Denies: Hx Peritoneal Dialysis GI Medical History: Reports: Hx Gastroesophageal Reflux Disease, Hx Hiatal Hernia. Denies: Hx Cirrhosis, Hx Crohn's Disease, Hx Hepatitis, Hx Ulcer, Hx Ulcerative Colitis Musculoskeletal Medical History: Reports Hx Arthritis, Denies Hx Gout Skin Medical History: Denies Hx Eczema, Denies Hx Psoriasis Psychiatric Medical History: Reports: Hx Depression Infectious Medical History: Denies: Hx Hepatitis Past Surgical History: Reports: Hx Cardiac Catheterization, Hx Coronary Stent, Hx Hysterectomy. Denies: Hx Mastectomy, Hx Open Heart Surgery, Hx Pacemaker - Immunizations Hx Diphtheria, Pertussis, Tetanus Vaccination: Yes Hx Pneumococcal Vaccination: 03/19/19 Review of Systems - Review of Systems Notes: Constitutional: + Generalized weakness. HENT: Negative for sore throat. Eyes: Negative for visual changes. Cardiovascular: + Palpitations, + chest pressure . Respiratory: + Shortness of breath. Gastrointestinal: Negative for abdominal pain, vomiting or diarrhea. Genitourinary: Negative for dysuria. Musculoskeletal: Negative for back pain. Skin: Negative for rash. Neurological: Negative for headaches, weakness or numbness. 10 point ROS negative except as marked above and in HPI. Physical Exam - Vital signs Vitals: Temp Pulse Resp BP Pulse Ox 97.6 F 129 H 20 128/94 H 97 08/12/19 08:09 08/12/19 08:09 08/12/19 08:09 08/12/19 08:09 08/12/19 08:09 - Notes Notes: PHYSICAL EXAMINATION: Physical Exam: General: Frail elderly 78-year-old woman in mild distress HEENT: NC/AT, pupils equal round and reactive to light, MM moist,nares clear, oropharynx clear, airway patent Neck: supple, no adenopathy, no masses. Lungs: clear, no wheezing, no rales no rhonchi CVS: Irregularly irregular tachycardia,no murmur, gallop or rub Abdomen: Soft, active, nontender, no masses, no hepatosplenomegaly Ext: No edema, clubbing or cyanosis. Neuro: Alert and responsive, moving all 4 extremities on command, cranial nerves intact, no focal findings Skin: Intact no open lesions, no rash PSYCH: Normal mood, normal affect. Course - Re-evaluation Re-evalutation: 08/12/19 11:07 Patient presents with atrial fibrillation RVR, chest pressure, shortness of breath. Some improvement after IV Cardizem and metoprolol, a Cardizem drip is started in the emergency department and hospitalist is contacted to admit the patient for further evaluation and treatment. Dr. Anderson is the business account leader for the patient. Dr. Johnson was called and will admit to telemetry. - Vital Signs Vital signs: Temp Pulse Resp BP Pulse Ox 97.6 F 129 H 21 H 106/77 94 08/12/19 08:09 08/12/19 08:09 08/12/19 10:26 08/12/19 10:26 08/12/19 10:26 - Laboratory Result Diagrams: 08/12/19 08:45 08/12/19 08:45 Laboratory results interpreted by me: 08/12/19 08/12/19 08/12/19 08:45 08:45 08:45 Hgb 10.2 L Hct 33.7 L MCV 76 L MCH 22.8 L MCHC 30.1 L RDW 17.4 H BUN 31 H Est GFR ( Amer) 56 L Est GFR (MDRD) Non-Af 46 L Glucose 138 H Total Bilirubin 1.4 H AST 75 H ALT 50 H Creatine Kinase 146 H CK-MB (CK-2) 6.17 H - Diagnostic Test Radiology reviewed: Image reviewed, Reports reviewed - Chest x-ray: Cardiomegaly with bilateral pleural effusions. - EKG Interpretation by Me Rhythm: A.Fib - Rate of 131, borderline left axis deviation, repolarization abnormality, borderline prolonged QT interval. Critical Care Note - Critical Care Note Total time excluding time spent on procedures (mins): 45 - Critical care time spent obtaining history from patient or surrogate, discussions with consultants, development of treatment plan with patient or surrogate, evaluation of patient's response to treatment, examination of patient, ordering and performing treatments and interventions, ordering and review of laboratory studies, re- evaluation of patient's condition, ordering and review of radiographic studies and review of old charts Discharge - Discharge Clinical Impression: Atrial fibrillation with RVR Condition: Stable Disposition: ADMITTED INPATIENT Admitting Provider: Elizabeth (Hospitalist) Unit Admitted: Telemetry Referrals: GIO ROSENTHAL DO [Primary Care Provider] - Follow up as needed
[2019-08-12 09:33] LABS: TROPONIN I < 0.012 ng/mL
--- NOTE | 2019-08-12 09:45 | RADIOLOGY REPORT (SQ) ---
EXAM DESCRIPTION: CHEST 2 VIEWS COMPLETED DATE/TIME: 08/12/2019 9:25 am REASON FOR STUDY: cp COMPARISON: AP view of the chest from 08/09/2019. EXAM PARAMETERS: NUMBER OF VIEWS: Two views. TECHNIQUE: PA and lateral views of the chest were obtained.. RADIATION DOSE: NA LIMITATIONS: none FINDINGS: LUNGS AND PLEURA: The increased AP diameter of the thorax on the lateral view could repres ent a component of COPD. The costophrenic sulci are blunted and there are patchy bibasilar parenchym al opacities that could represent atelectasis. There is no pneumothorax or consolidation. MEDIASTINUM AND HILAR STRUCTURES: Hiatal hernia. HEART AND VASCULAR STRUCTURES: The cardiac silhouette is enlarged. BONES: No acute findings. HARDWARE: None in the chest. OTHER: No other finding. IMPRESSION: Cardiomegaly, bilateral pleural effusions and bibasilar atelectasis. There are no findi ngs of overt pulmonary edema. TECHNICAL DOCUMENTATION: JOB ID: [id number] 2010 [employer]- All Rights Reserved Reading location - IP/workstation name: [email or web address]
[2019-08-12] MEDS ORDERED: DILTIAZEM HCL/D5W 125 MG/125 ML RTUINJ IV PRN (10:37)
[2019-08-12] MEDS ORDERED: METOPROLOL TARTRATE 25 MG TABLET PO ONE (11:30)
[2019-08-12 11:40] LABS: APPEARANCE,URINE SLIGHTLY-CLOUDY; BILIRUBIN,URINE NEGATIVE (NEGATIVE); COLOR,URINE YELLOW; GLUCOSE, URINE NEGATIVE (NEGATIVE); KETONES,URINE TRACE mg/dL (NEGATIVE); LEUKOCYTE ESTERASE,URINE TRACE (NEGATIVE); NITRITE,URINE NEGATIVE (NEGATIVE); PROTEIN,URINE 100 mg/dL (NEGATIVE); URINE SPECIFIC GRAVITY 1.024
[2019-08-12 12:20] LABS: NT PRO BNP 6840 pg/mL (<450)
[2019-08-12 12:21] LABS: TROPONIN I < 0.012 ng/mL
[2019-08-12] MEDS ORDERED: ONDANSETRON HCL INJ/PF 4 MG/2 ML SDV IV PRN (13:04)
[2019-08-12] MEDS ORDERED: ALBUTEROL SULFATE 0.083% NEB 2.5 MG/3 ML AMPUL NEB PRN (13:04)
[2019-08-12] MEDS ORDERED: MAG HYDROX/AL HYDROX/SIMETH SUSP 30 ML UDCUP PO PRN (13:04)
[2019-08-12] MEDS ORDERED: METOPROLOL TARTRATE PF/INJ 5 MG/5 ML SDV IV PRN (13:16)
[2019-08-12] MEDS ORDERED: DEXTROSE 40% GEL 15 GM TUBE PO PRN ×2 (13:25)
[2019-08-12] MEDS ORDERED: GLUCAGON,HUMAN RECOMB 1 MG INJ IM PRN (13:25)
[2019-08-12] MEDS ORDERED: DEXTROSE 50%-WATER 25 GM/50 ML DISP.SYRIN IV PRN ×2 (13:25)
[2019-08-12] MEDS ORDERED: FUROSEMIDE INJ/PF 20 MG/2 ML SDV IV ONE (13:33)
--- NOTE | 2019-08-12 13:36 | PDOC H&P ---
History of Present Illness Admission Date/PCP: 08/12/19 11:25 GIO ROSENTHAL DO Patient complains of: Confusion, palpitations History of Present Illness: MEGAN JUNG is a 78 year old female with a history of persistent atrial fibrillation, who was sent into the hospital by her daughter and integrated circuits inspector for evaluation of confusion and noted wheezing and shortness of breath. Patient currently is very somnolent and unable to partake much in the conversation. M uch of the history obtained from patient's other daughter who does not live with patient and via phone call with Alyce. She informs me that patient was very confused since yesterday into this morning and texting several people inappropriately. Patient herself denies any weakness or new deficits. Patient's daughter states that she has been waxing and wanning in orientation for the past weak and getting worse. Also endorses she has poor sleep at night time. She denies any shortness of breath or chest pain. In the emergency department, patient was noted to be in A. fib with rapid ventricular response into the 130s. She was started on diltiazem drip and given some IV Lopressor. Subsequently referred to hospitalist service for admission. Patient did have a recent admission for atrial fibrillation with RVR and was discharged home on metoprolol tartrate 25 mg twice a day. Past Medical History Cardiac Medical History: Reports: Atrial Fibrillation, Coronary Artery Disease - cardiac stents x3, Myocardial Infarction - 2005, Hyperlipidema, Hypertension Denies: Congestive Heart Failure, DVT, Pulmonary Embolism Pulmonary Medical History: Denies: Asthma, Bronchitis, Chronic Obstructive Pulmonary Disease (COPD), Pneumonia Neurological Medical History: Denies: Seizures Endocrine Medical History: Reports: Diabetes Mellitus Type 2 Denies: Diabetes Mellitus Type 1, Hyperthyroidism, Hypothyroidism GI Medical History: Denies: Cirrhosis, Crohn's Disease, Hepatitis, Ulcerative Colitis Musculoskeltal Medical History: Reports: Arthritis Denies: Gout Skin Medical History: Denies: Eczema, Psoriasis Psychiatric Medical History: Reports: Depression Hematology: Reports: Anemia Denies: Bleeding Tendencies Past Surgical History Past Surgical History: Reports: Cardiac Catheterization, Coronary Stent, Hy sterectomy Denies: Amputation, Mastectomy, Pacemaker Social History Smoking Status: Unknown if Ever Smoked Frequency of Alcohol Use: None Hx Recreational Drug Use: No Drugs: None Hx Prescription Drug Abuse: No - Advance Directive Resuscitation Status: Full Code Family History Family History: Hyperlipidemia, Hypertension. denies: CAD, DM Parental Family History Reviewed: Yes Children Family History Reviewed: NA Sibling(s) Family History Reviewed.: NA Medication/Allergy Allergies/Adverse Reactions: zolpidem [From Ambien] Adverse Reaction (Verified 04/18/19 10:06) Review of Systems ROS unobtainable: Due to mental status Physical Exam Vital Signs: Temp Pulse Resp BP Pulse Ox 97.6 F 129 H 23 H 129/86 H 98 08/12/19 08:09 08/12/19 08:09 08/12/19 12:50 08/12/19 12:50 08/12/19 12:49 Intake & Output 08/11/19 08/12/19 08/13/19 06:59 06:59 06:59 Intake Total 3 Balance 3 Weight 79.5 kg General appearance: PRESENT: no acute distress, cooperative, obese Head exam: ABSENT: atraumatic Eye exam: PRESENT: EOMI - Appears grossly intact but unable to strictly follow instructions currently Mouth exam: PRESENT: neck supple Neck exam: ABSENT: JVD Respiratory exam: PRESENT: decreased breath sounds - Decrease basilar sounds, symmetrical, unlabored, wheezes - Very mild. ABSENT: tachypnea Cardiovascular exam: PRESENT: irregular rhythm, +S1, +S2, tachycardia GI/Abdominal exam: PRESENT: soft. ABSENT: normal bowel sounds, rebound, rigid, tenderness Extremities exam: ABSENT: calf tenderness, pedal edema Neurological exam: PRESENT: awake - Somnolent but easily arousable by name calling, oriented to person, CN II-XII grossly intact. ABSENT: oriented to place, oriented to time, oriented to situation, motor sensory deficit, aphasic Psychiatric exam: ABSENT: agitated, anxious Focused psych exam: ABSENT: pressured speech Skin exam: ABSENT: jaundice Results Laboratory Results: 08/12/19 08:45 08/12/19 08:45 08/12/19 08/12/19 08/12/19 08:45 08:45 11:20 WBC 5.7 RBC 4.45 Hgb 10.2 L Hct 33.7 L MCV 76 L MCH 22.8 L MCHC 30.1 L RDW 17.4 H Plt Count 307 Seg Neutrophils % 69.1 Sodium 137.9 Potassium 4.4 Chloride 103 Carbon Dioxide 23 Anion Gap 12 BUN 31 H Creatinine 1.14 Est GFR ( Amer) 56 L Glucose 138 H Calcium 9.2 Total Bilirubin 1.4 H AST 75 H Alkaline Phosphatase 69 Total Protein 6.4 Albumin 3.6 Urine Color YELLOW Urine Appearance SLIGHTLY-CLOUDY Urine pH 5.0 Ur Specific [place] 1.024 Urine Protein 100 H Urine Glucose (UA) NEGATIVE Urine Ketones TRACE H Urine Blood NEGATIVE Urine Nitrite NEGATIVE Ur Leukocyte Esterase TRACE H Urine WBC (Auto) 5 Urine RBC (Auto) 1 08/12/19 08/12/19 08/12/19 08:45 08:45 11:35 Creatine Kinase 146 H CK-MB (CK-2) 6.17 H Troponin I < 0.012 < 0.012 NT-Pro-B Natriuret Pep 6840 H Impressions: Chest X-Ray 08/12/19 00:00 IMPRESSION: Cardiomegaly, bilateral pleural effusions and bibasilar atelectasis. There are no findings of overt pulmonary edema. Assessment and Plan - Diagnosis (1) Metabolic encephalopathy Is this a current diagnosis for this admission?: Yes Plan: Acute encephalopathy defined by lethargy, disorientation and forgetfulness on exam Etiology uncertain at this time but possibly due to delirium from current medical conditions or sleep deprivation or UTI amongst others. Monitor for urinary retention sleep hygiene. Melatonin qhs. Check ABG Check head CT (2) Persistent atrial fibrillation with rapid ventricular response Is this a current diagnosis for this admission?: Yes Plan: Maintain on Cardizem drip Patient's primary electrical designer Dr. Anderson has been consulted. Will consult Dr. Giron tomorrow for potential cardioversion as well. IV Lopressor as needed. Lopressor p.o. 25 mg every 6 hours. Uptitrate as needed. TSH done on last admission was within normal limits (3) Acute congestive heart failure Qualifiers: Heart failure type: unspecified Qualified Code(s): I50.9 - Heart failure, unspecified Is this a current diagnosis for this admission?: Yes Plan: BNP significantly elevated with cardiomegaly and small pleural effusions on chest x-ray. EF unknown. CHF likely in setting of tachyarrhythmia. Check echo. Start diuresis with Lasix. (4) Diabetes mellitus type 2 in obese Is this a current diagnosis for this admission?: Yes Plan: Hx of DM2 but currently just diet controlled. Sliding scale insulin and Accu- Cheks. (5) Urinary tract infection Qualifiers: Urinary tract infection type: acute cystitis Hematuria presence: without hematuria Qualified Code(s): N30.00 - Acute cystitis without hematuria Is this a current diagnosis for this admission?: Yes Plan: In light of current encephalopathy, and inability to effectively ascertain urinary symptoms, I will go ahead and treat for UTI given that her urine culture on 08/09/2019 grew a pansensitive E. coli. Will start on cefazolin. (6) Wheezing Is this a current diagnosis for this admission?: Yes Plan: Denies hx of smoking, copd or asthma. May be reactive bronchospasm which daughter states that she is recovering from recent URI. Nebs as needed. No need for steroids. - Time Time Spent with patient: 35 or more minutes
[2019-08-12] MEDS: CEFAZOLIN 1 GM/D5W RTU 1 GM/50 ML RTUPB IV SCH ×3 (14:07→23:10)
[2019-08-12 14:11] LABS: ARTERIAL BLOOD BASE EXCESS 0.9 mmol/L; ARTERIAL BLOOD H2CO3 1.65 mmol/L (1.05-1.35); ARTERIAL BLOOD HCO3 27.7 mmol/L (20-24); ARTERIAL BLOOD O2 SATURATION 42.1 % (94-98); ARTERIAL BLOOD PCO2 54.8 mmHg (35-45); ARTERIAL BLOOD PH 7.32 (7.35-7.45); ARTERIAL BLOOD TOTAL CO2 29.3 mmol/L (21-25)
[2019-08-12 14:14] LABS: ARTERIAL BLOOD FIO2 2L
--- NOTE | 2019-08-12 15:31 | RADIOLOGY REPORT (SQ) ---
EXAM DESCRIPTION: CT HEAD WITHOUT COMPLETED DATE/TIME: 08/12/2019 3:14 pm REASON FOR STUDY: lethargy COMPARISON: 08/31/2017 TECHNIQUE: Axial images acquired through the brain without intravenous contrast. Images reviewed wi th bone, brain and subdural windows. Additional sagittal and coronal reconstructions were generated. Images stored on PACS. All CT scanners at this facility use dose modulation, iterative reconstruction, and/or weight based d osing when appropriate to reduce radiation dose to as low as reasonably achievable (ALARA). [facility]: Dose Right [facility]: CareDose [facility]: Dose Right [facility]: Teradose 4D [facility]: [employer] RADIATION DOSE: CT Rad equipment meets quality standard of care and radiation dose reduction techniq ues were employed. CTDIvol: 53.2 mGy. DLP: 1044 mGy-cm. mGy. LIMITATIONS: None. FINDINGS: VENTRICLES: Normal size and contour. CEREBRUM: There is a small area of encephalomalacia in the medial posterior left frontal lobe that wa s not present on the prior study. There is no hemorrhage. There is no acute infarction. Areas of lo w density in the white matter most likely chronic small vessel ischemic changes. CEREBELLUM: No masses. No hemorrhage. No alteration of density. No evidence for acute infarction. EXTRAAXIAL SPACES: No fluid collections. No masses. ORBITS AND GLOBE: No intra- or extraconal masses. Normal contour of globe without masses. CALVARIUM: No fracture. PARANASAL SINUSES: No fluid or mucosal thickening. SOFT TISSUES: No mass or hematoma. OTHER: No other significant finding. 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 Chronic microvascular ischemia. No acute int racranial imaging findings. EVIDENCE OF ACUTE STROKE: NO. COMMENT: Quality ID # [id number]: Final reports with documentation of one or more dose reduction techniques (e.g., Automated exposure control, adjustment of the mA and/or kV according to patient size, use of iterative reconstruction technique) TECHNICAL DOCUMENTATION: JOB ID: [id number] 2010 [employer]- All Rights Reserved Reading location - IP/workstation name: [email or web address]
[2019-08-12] MEDS: DILTIAZEM HCL/D5W 125 MG/125 ML RTUINJ IV PRN ×2 (16:30→22:35)
[2019-08-12] MEDS: LEVALBUTEROL HCL NEB 1.25 MG/3 ML AMPUL NEB SCH ×2 (17:20→23:54)
[2019-08-12] MEDS: INSULIN LISPRO 100 UNIT/ML 3 ML VIAL SUBCUT SCH ×2 (18:05→21:08)
--- NOTE | 2019-08-12 18:14 | EKG REPORT ---
SEVERITY:- ABNORMAL ECG - ATRIAL FIBRILLATION BORDERLINE LEFT AXIS DEVIATION REPOL ABNRM SUGGESTS ISCHEMIA, LATERAL LEADS BORDERLINE PROLONGED QT INTERVAL : Confirmed by: Ami Bass MD 12-Aug-2019 18:13:36
[2019-08-12] MEDS: RIVAROXABAN 10 MG TABLET PO SCH (21:13)
[2019-08-12] MEDS: MELATONIN 3 MG TABLET PO SCH (21:13)
[2019-08-12] MEDS: METOPROLOL TARTRATE 25 MG TABLET PO SCH ×2 (21:14→23:34)
[2019-08-12] MEDS: FUROSEMIDE INJ/PF 20 MG/2 ML SDV IV SCH (22:59)
[2019-08-12] MEDS ORDERED: DILTIAZEM HCL 30 MG TABLET PO ONE (23:15)
[2019-08-13] MEDS ORDERED: DILTIAZEM HCL 30 MG TABLET PO SCH
[2019-08-13] MEDS ORDERED: DILTIAZEM HCL 120 MG CAP.SR.24H PO SCH
[2019-08-13 05:41] LABS: ABSOLUTE EOSINOPHILS # (AUTO) 0.1 10^3/uL (0.0-0.6); ABSOLUTE LYMPHOCYTES (AUTO) 1.6 10^3/uL (0.5-4.7); ABSOLUTE MONOCYTES (AUTO) 0.5 10^3/uL (0.1-1.4); ABSOLUTE NEUT (AUTO) 3.3 10^3/uL (1.7-8.2); BASOPHILS % (AUTO) 0.7 % (0-2); EOSINOPHILS % (AUTO) 2.2 % (0-6); HEMATOCRIT 28.4 % (36.0-47.0); HEMOGLOBIN 8.9 g/dL (12.0-15.5); LYMPHOCYTES % (AUTO) 29.5 % (13-45); MEAN CORPUSCULAR HEMOGLOBIN 23.2 pg (27.0-33.4); MEAN CORPUSCULAR HGB CONC 31.4 g/dL (32.0-36.0); MEAN CORPUSCULAR VOLUME 74 fl (80-97); MONOCYTES % (AUTO) 8.5 % (3-13); PLATELET COUNT 237 10^3/uL (150-450); RED BLOOD COUNT 3.84 10^6/uL (3.72-5.28); RED CELL DISTRIBUTION WIDTH 18.2 % (11.5-14.0); SEGMENTED NEUTROPHILS % (AUTO) 59.1 % (42-78); TOTAL CELLS COUNTED % (AUTO) 100 %; WHITE BLOOD COUNT 5.6 10^3/uL (4.0-10.5)
[2019-08-13] MEDS: METOPROLOL TARTRATE 25 MG TABLET PO SCH ×3 (06:07→18:08)
[2019-08-13 06:09] LABS: ANION GAP 8 (5-19); BLOOD UREA NITROGEN 26 mg/dL (7-20); CALCIUM 8.5 mg/dL (8.4-10.2); CARBON DIOXIDE 27 mmol/L (22-30); CHLORIDE 103 mmol/L (98-107); GLUCOSE 91 mg/dL (75-110)
--- NOTE | 2019-08-13 06:10 | PDOC CONSULTATION ---
Consultation Consult Date: 08/13/19 Provider Consulted: AZRA KAPOOR Consult reason:: Atrial fibrillation History of Present Illness Admission Date/PCP: 08/12/19 11:25 GIO ROSENTHAL DO History of Present Illness: MEGAN JUNG is a 78 year old female with history of coronary artery disease status post PCI to the OM with a 2.75 mm x 18 mm velocity stent on 01/14/02 and PCI with a Xience ENRIKE 3.0 mm x 18 mm to the LAD and Xience ENRIKE 2.25 mm x 28 mm to the OM on 03/25/13, paroxysmal atrial fibrillation anticoagulated with Xarelto, aortic root/proximal ascending aortic aneurysm, syncope without recent recurrences, hypertension, hyperlipidemia and diabetes who is consulted to our service for further evaluation and treatment of atrial fibrillation. Unfortunately, and for unknown reasons, she discontinued all of her cardiac medications several months ago and began noticing shortness of breath and palpitations particularly when walking reason why her atenolol and Eliquis were restarted. Unfortunately she then developed a UTI and her atrial fibrillation worsened. Rate controlled was restarted in the outpatient setting however a it was only partially effective. Over the past weekend her daughter contacting me via text message and stated that her mother was acting inappropriately and confused therefore she was instructed by me to report to me emergency room for further treatment. Upon initial evaluation she was obtunded and diagnosed with metabolic encephalopathy probably from her UTI. This morning the patient is found laying in bed with a CPAP machine on. She is asleep but easily arousable. She has no specific cardiac complaints and only wants to know when breakfast will be served. She is currently on a diltiazem drip. Her telemetry showed atrial fibrillation with an essentially controlled ventricular rate with short episodes of nonsustained VT versus aberrantly conducted beats. Of note, her echocardiogram in October 2018 demonstrated mildly dilated aortic root at 3.5 cm and mildly dilated proximal ascending aorta at 3.9 cm. Her Ziopatch in July 2018 demonstrated sinus bradycardia without complex dysrhythmias. Her Lexiscan MPS was repeated in September 2018 with normal results. Echocardiogram on 10/31/18: -LV is normal in size. -Concentric hypertrophy. -EF is 55%. -Indeterminate diastolic function the presence of A. fib. -Mild MAC without stenosis. -Mild MR, [id number] TR, trace PI. -Mildly dilated aortic root at 3.5 cm. -Mildly dilated proximal ascending aorta at 3.9 cm. -When compared to prior study in May 2018, the aortic root and proximal ascending aorta are stable in size. Lexiscan MPS in 09/28/18: -No evidence of ischemia or infarct. -Ejection fraction of 58%. Ziopatch 08/14/18 through 08/27/18: -Predominant rhythm is sinus bradycardia. -SVT 23 lasting up to 14 beats. -Events correlated with sinus bradycardia, PACs and PVCs. -Rare PACs and rare PVCs. -No malignant dysrhythmias or pauses. Past Medical History Cardiac Medical History: Reports: Atrial Fibrillation, Coronary Artery Disease - cardiac stents x3, Myocardial Infarction - 2005, Hyperlipidema, Hypertension Denies: Congestive Heart Failure, DVT, Pulmonary Embolism Pulmonary Medical History: Denies: Asthma, Bronchitis, Chronic Obstructive Pulmonary Disease (COPD), Pneumonia Neurological Medical History: Denies: Seizures Endocrine Medical History: Reports: Diabetes Mellitus Type 2 Denies: Diabetes Mellitus Type 1, Hyperthyroidism, Hypothyroidism GI Medical History: Reports: Gastroesophageal Reflux Disease, Hiatal Hernia Denies: Cirrhosis, Crohn's Disease, Hepatitis, Ulcerative Colitis Musculoskeltal Medical History: Reports: Arthritis Denies: Gout Skin Medical History: Denies: Eczema, Psoriasis Psychiatric Medical History: Reports: Depression Hematology: Reports: Anemia Denies: Bleeding Tendencies Past Surgical History Past Surgical History: Reports: Cardiac Catheterization, Coronary Stent, Hysterectomy Denies: Amputation, Mastectomy, Pacemaker Social History Smoking Status: Former Smoker Electronic Cigarette use?: No Last Time Smoked: when patient was a teenager Frequency of Alcohol Use: None Hx Recreational Drug Use: No Drugs: None Hx Prescription Drug Abuse: No - Advance Directive Resuscitation Status: Full Code Family History Family History: denies: CAD, DM Parental Family History Reviewed: Yes Children Family History Reviewed: Yes Sibling(s) Family History Reviewed.: Yes Medication/Allergy Home Medications: Atenolol [Tenormin 50 mg Tablet] 50 mg PO DAILY 08/12/19 Metoprolol Tartrate [Lopressor 25 mg Tablet] 25 mg PO Q12 08/12/19 Allergies/Adverse Reactions: zolpidem [From Ambien] Adverse Reaction (Verified 04/18/19 10:06) Physical Exam Vital Signs: Temp Pulse Resp BP Pulse Ox 97.6 F 83 14 114/72 100 08/12/19 23:21 08/13/19 04:00 08/13/19 04:37 08/13/19 04:00 08/13/19 04:37 Intake & Output 08/11/19 08/12/19 08/13/19 06:59 06:59 06:59 Intake Total 453 Output Total 600 Balance -147 Weight 79.5 kg General appearance: PRESENT: no acute distress, cooperative, well-developed, well-nourished Head exam: PRESENT: atraumatic, normocephalic Mouth exam: PRESENT: moist, tongue midline Neck exam: ABSENT: carotid bruit, JVD, lymphadenopathy, thyromegaly Respiratory exam: PRESENT: clear to auscultation deo, decreased breath sounds - Decreased breath sounds at bases bilaterally. ABSENT: rales, rhonchi, wheezes Cardiovascular exam: PRESENT: irregular rhythm, tachycardia. ABSENT: bradycardia, diastolic murmur, rubs Pulses: PRESENT: normal dorsalis pedis pul Vascular exam: PRESENT: normal capillary refill GI/Abdominal exam: PRESENT: normal bowel sounds, soft. ABSENT: distended, guarding, mass, organolmegaly, rebound, tenderness Extremities exam: PRESENT: full ROM. ABSENT: calf tenderness, clubbing, pedal edema Results Laboratory Results: 08/13/19 04:38 08/12/19 08/12/19 08/12/19 08:45 08:45 11:20 WBC 5.7 RBC 4.45 Hgb 10.2 L Hct 33.7 L MCV 76 L MCH 22.8 L MCHC 30.1 L RDW 17.4 H Plt Count 307 Seg Neutrophils % 69.1 Carbonic Acid HCO3/H2CO3 Ratio ABG pH ABG pCO2 ABG pO2 ABG HCO3 ABG O2 Saturation ABG Base Excess FiO2 Sodium 137.9 Potassium 4.4 Chloride 103 Carbon Dioxide 23 Anion Gap 12 BUN 31 H Creatinine 1.14 Est GFR ( Amer) 56 L Glucose 138 H Calcium 9.2 Total Bilirubin 1.4 H AST 75 H Alkaline Phosphatase 69 Total Protein 6.4 Albumin 3.6 Urine Color YELLOW Urine Appearance SLIGHTLY-CLOUDY Urine pH 5.0 Ur Specific [place] 1.024 Urine Protein 100 H Urine Glucose (UA) NEGATIVE Urine Ketones TRACE H Urine Blood NEGATIVE Urine Nitrite NEGATIVE Ur Leukocyte Esterase TRACE H Urine WBC (Auto) 5 Urine RBC (Auto) 1 08/12/19 08/13/19 13:45 04:38 WBC 5.6 RBC 3.84 Hgb 8.9 L Hct 28.4 L MCV 74 L MCH 23.2 L MCHC 31.4 L RDW 18.2 H Plt Count 237 Seg Neutrophils % 59.1 Carbonic Acid 1.65 H HCO3/H2CO3 Ratio 16:1 ABG pH 7.32 L ABG pCO2 54.8 H ABG pO2 26.0 L* ABG HCO3 27.7 H ABG O2 Saturation 42.1 L ABG Base Excess 0.9 FiO2 2L Sodium Potassium Chloride Carbon Dioxide Anion Gap BUN Creatinine Est GFR ( Amer) Glucose Calcium Total Bilirubin AST Alkaline Phosphatase Total Protein Albumin Urine Color Urine Appearance Urine pH Ur Specific [place] Urine Protein Urine Glucose (UA) Urine Ketones Urine Blood Urine Nitrite Ur Leukocyte Esterase Urine WBC (Auto) Urine RBC (Auto) 08/12/19 08/12/19 08/12/19 08:45 08:45 11:35 Creatine Kinase 146 H CK-MB (CK-2) 6.17 H Troponin I < 0.012 < 0.012 NT-Pro-B Natriuret Pep 6840 H Impressions: Chest X-Ray 08/12/19 00:00 IMPRESSION: Cardiomegaly, bilateral pleural effusions and bibasilar atelectasis. There are no findings of overt pulmonary edema. 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 Chronic microvascular ischemia. No acute intracranial imaging findings. EVIDENCE OF ACUTE STROKE: NO. Status: Imported from PACS Assessment & Plan - Diagnosis (1) Atrial fibrillation with RVR Plan: The patient is currently on both diltiazem drip and Lopressor by mouth however she does have evidence of mild heart failure with bilateral pleural effusions, decreased breath sounds bilaterally and elevated proBNP. She is anticoagulated with Xarelto. Recommendations: -Discontinue diltiazem drip as the patient is in heart failure. -Continue with anticoagulation. -Continue with p.o. Lopressor and titrated up to 50 mg p.o. every 6 hours to achieve goal heart rate of less than 110 bpm at rest. -We will defer JUAN guided cardioversion until the pa patient's UTI is resolved. (2) Acute congestive heart failure Qualifiers: Heart failure type: diastolic Qualified Code(s): I50.31 - Acute diastolic (congestive) heart failure Is this a current diagnosis for this admission?: Yes Plan: The patient has evidence of heart failure with preserved d ejection fraction likely secondary to her atrial fibrillation with RVR. When compared to her outpatient weight, she is 4 kg overweight with an elevated proBNP. Recommendations: -Discontinue all unnecessary IV fluids. -Discontinue p.o. diltiazem. -Discontinue IV diltiazem. -Continue to uptitrate Metroprolol p.o. to achieve a goal heart rate of less than 110 bpm at rest. -Start Lasix 20 mg IV twice daily. -Low-sodium diet. -Strict intake and output. -Daily weights. (3) Diabetes mellitus type 2 in obese Is this a current diagnosis for this admission?: Yes Plan: We will defer further management to the primary team. - Time Time Spent: 30 to 50 Minutes Medications reviewed and adjusted accordingly: Yes
[2019-08-13] MEDS ORDERED: CEFAZOLIN 1 GM/D5W RTU 1 GM/50 ML RTUPB IV ONE (06:14)
[2019-08-13] MEDS: CEFAZOLIN 1 GM/D5W RTU 1 GM/50 ML RTUPB IV SCH ×3 (06:16→18:09)
[2019-08-13 06:53] LABS: POTASSIUM 3.3 mmol/L (3.6-5.0)
[2019-08-13] MEDS: LEVALBUTEROL HCL NEB 1.25 MG/3 ML AMPUL NEB SCH ×3 (08:39→23:40)
[2019-08-13] MEDS ORDERED: ENOXAPARIN SODIUM INJ 40 MG/0.4 ML DISP.SYRIN SUBCUT SCH (10:00)
[2019-08-13] MEDS: POTASSIUM CHLORIDE 10 MEQ TABLET.ER PO SCH ×2 (10:50→18:08)
[2019-08-13] MEDS: FUROSEMIDE INJ/PF 20 MG/2 ML SDV IV SCH (10:50)
[2019-08-13] MEDS: INSULIN LISPRO 100 UNIT/ML 3 ML VIAL SUBCUT SCH ×4 (10:51→22:15)
--- NOTE | 2019-08-13 13:28 | XCELERA REPORT ---
[address] [address] Transthoracic Echocardiogram Report Name: MEGAN JUNG Age: 78 yrs Gender: Female : 1940 Patient Status: Inpatient Patient Location: [address] [place], [place] [id number] Study Date: 08/13/2019 09:11 AM Height: 63 in Weight: 175 lb BSA: 1.8 m2 Procedure: A complete two-dimensional transthoracic echocardiogram was performed (2D, M-mode, spectral and color flow Doppler). Study Quality: Technically suboptimal. Reason For Study: Afib, chf. Dr Giron to read Ordering Physician: CARLOS HEREDIA Performed By: Zaira Valero Interpretation Summary The left ventricle is grossly normal size. Left ventricular systolic function is mildly reduced. LVEF is 40%. LV diastolic function could not be adequately assessed due to atrial fibrilation. There is mild to moderate global hypokinesis of the left ventricle. LV diastolic function could not be adequately assessed due to atrial fibrilation. Mild biatrial enlargement. Mild to moderate MR, severe TR, trace PI. IVC is mildly dilated with less than 50% respiratory variation. Moderate to severe pulmonary hypertension with estimated pressure between 56 and 61 mmHg. MMode/2D Measurements & Calculations RVDd: 2.5 cm LVIDd: 5.1 cm FS: 19.5 % Ao root diam: 3.4 cm IVSd: 1.2 cm LVIDs: 4.1 cm EDV(Teich): 125.4 ml Ao root area: 9.3 cm2 LVPWd: 1.1 cm ESV(Teich): 75.3 ml LA dimension: 3.5 cm EF(Teich): 39.9 % Doppler Measurements & Calculations MV E max malini: MV P1/2t max malini: Ao V2 max: LV V1 max P.8 cm/sec 139.8 cm/sec 88.6 cm/sec 1.3 mmHg MV A max malini: MV P1/2t: 48.9 msec Ao max PG: LV V1 max: 36.0 cm/sec MVA(P1/2t): 4.5 cm2 3.1 mmHg 56.8 cm/sec MV E/A: 2.6 MV dec slope: 836.6 cm/sec2 MV dec time: 0.21 sec PA V2 max: PI end-d malini: TR max malini: MV P1/2t-pr_phl: 63.7 cm/sec 80.7 cm/sec 339.3 cm/sec 48.9 msec PA max PG: TR max P.6 mmHg 46.1 mmHg Left Ventricle The left ventricle is grossly normal size. Left ventricular systolic function is mildly reduced. LV EF is 40%. LV diastolic function could not be adequately assessed due to atrial fibrilation. There is mild to moderate global hypokinesis of the left ventricle. Atria The right atrium is mildly dilated. The left atrium is mildly dilated. Mitral Valve The mitral valve leaflets appear thickened, but open well. There is a mild to moderate amount of mitral regurgitation. Aortic Valve The aortic valve is sclerotic, but shows no functional abnormality. Tricuspid Valve There is a severe amount of tricuspid regurgitation. There is moderate to severe pulmonary hypertension by echo. Right ventricular systolic pressure is estimated to be elevated at 50-60mmHg. Pulmonic Valve The pulmonic valve is normal in structure and function. There is a trace amount of pulmonic regurgitation. Great Vessels The inferior vena cava appeared dilated and decreased < 50% with respiration (RAP 15-20 mmHg). : CARLOS HEREDIA Antonio
--- NOTE | 2019-08-13 16:42 | PDOC PROGRESS REPORT ---
Subjective Progress Note for:: 08/13/19 Subjective:: Patient is more alert and responsive today. She is able to voice where she is unable to recollect appropriately. Mental status seems to have significantly improved. She denies any chest pain fever or chills. She does admits to polyuria. Reason For Visit: AFIB RVR, ENCEPHALOPATHY Physical Exam Vital Signs: Temp Pulse Resp BP Pulse Ox 97.9 F 91 20 100/65 99 08/13/19 12:39 08/13/19 14:00 08/13/19 12:39 08/13/19 12:39 08/13/19 12:39 Intake & Output 08/12/19 08/13/19 08/14/19 06:59 06:59 06:59 Intake Total 503 0 Output Total 600 Balance -97 0 Weight 78.8 kg General appearance: PRESENT: no acute distress, cooperative Neck exam: ABSENT: JVD Respiratory exam: PRESENT: clear to auscultation deo, unlabored. ABSENT: tachypnea, wheezes Cardiovascular exam: PRESENT: RRR, +S1, +S2. ABSENT: tachycardia GI/Abdominal exam: PRESENT: normal bowel sounds, soft. ABSENT: rebound, rigid, tenderness Neurological exam: PRESENT: alert, awake, oriented to person, oriented to place, oriented to time Results Laboratory Results: 08/13/19 04:38 08/13/19 04:38 08/13/19 08/13/19 04:38 04:38 WBC 5.6 RBC 3.84 Hgb 8.9 L Hct 28.4 L MCV 74 L MCH 23.2 L MCHC 31.4 L RDW 18.2 H Plt Count 237 Seg Neutrophils % 59.1 Sodium 137.8 Potassium 3.3 L D Chloride 103 Carbon Dioxide 27 Anion Gap 8 BUN 26 H Creatinine 1.06 Est GFR ( Amer) > 60 Glucose 91 Calcium 8.5 08/12/19 08/12/19 08/12/19 08:45 08:45 11:35 Creatine Kinase 146 H CK-MB (CK-2) 6.17 H Troponin I < 0.012 < 0.012 NT-Pro-B Natriuret Pep 6840 H Impressions: Chest X-Ray 08/12/19 00:00 IMPRESSION: Cardiomegaly, bilateral pleural effusions and bibasilar atelectasis. There are no findings of overt pulmonary edema. 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 Chronic microvascular ischemia. No acute intracranial imaging findings. EVIDENCE OF ACUTE STROKE: NO. Assessment and Plan - Diagnosis (1) Metabolic encephalopathy Is this a current diagnosis for this admission?: Yes Plan: Currently resolved. He appears to be back at baseline. May have been secondary to UTI or delirium from sleep deprivation. Head CT negative. (2) Persistent atrial fibrillation with rapid ventricular response Is this a current diagnosis for this admission?: Yes Plan: Patient being seen by her primary field education director Dr. Anderson. Cardizem drip discontinued today. Lopressor uptitrated to 50 mg every 6 hours. Heart rate is improved. TSH done on last admission within normal limits. Continue Xarelto. Replenish electrolytes. Will ambulate patient to monitor heart rate on ambulation. (3) Acute congestive heart failure Qualifiers: Heart failure type: systolic Qualified Code(s): I50.21 - Acute systolic (co ngestive) heart failure Is this a current diagnosis for this admission?: Yes Plan: BNP significantly elevated with cardiomegaly and small pleural effusions on chest x-ray. CHF in setting of tachyarrhythmia. Echocardiogram today showing decreased EF of 40%. Diastology unable to be evaluated due to atrial fibrillation. RVSP of 50 to 60 mmHg. LV global hypokinesis. This systolic dysfunction is rather new for patient. Will discuss with patient's field education director about starting patient on converting BB to Toprol-XL. C/w lasix IV . BP soft and may not tolerate addition of acei/arb. (4) Urinary tract infection Qualifiers: Urinary tract infection type: acute cystitis Hematuria presence: without hematuria Qualified Code(s): N30.00 - Acute cystitis without hematuria Is this a current diagnosis for this admission?: Yes Plan: Cefazolin day 2/5 (5) Diabetes mellitus type 2 in obese Is this a current diagnosis for this admission?: Yes Plan: Hx of DM2 but currently just diet controlled. Sliding scale insulin and Accu- Cheks. (6) Wheezing Is this a current diagnosis for this admission?: Yes Plan: Denies hx of smoking, copd or asthma. May be reactive bronchospasm which daughter states that she is recovering from recent URI. Nebs as needed. No need for steroids. (7) Acute hypercapnic respiratory failure Is this a current diagnosis for this admission?: Yes Plan: Patient did show some evidence of respiratory acidosis with hypercapnia on VBG done yesterday. Notably at that time patient was mostly asleep. Currently patient seems to be doing better both so she will benefit from outpatient sleep study upon discharge. - Time Time Spent with patient: 15-24 minutes
--- NOTE | 2019-08-13 17:07 | EKG REPORT ---
SEVERITY:- ABNORMAL ECG - SINUS RHYTHM SUPRAVENTRICULAR BIGEMINY PROBABLE LVH WITH SECONDARY REPOL ABNRM : Confirmed by: Ami Bass MD 13-Aug-2019 17:06:42
[2019-08-13] MEDS ORDERED: FUROSEMIDE INJ/PF 40 MG/4 ML SDV IV ONE (18:00)
[2019-08-13] MEDS: RIVAROXABAN 10 MG TABLET PO SCH (18:08)
[2019-08-13] MEDS: MELATONIN 3 MG TABLET PO SCH (22:22)
[2019-08-14] MEDS ORDERED: CEFAZOLIN 1 GM/D5W RTU 2 GM/100 ML RTUPB IV ONE (00:43)
[2019-08-14] MEDS: METOPROLOL TARTRATE 25 MG TABLET PO SCH ×4 (00:57→17:35)
[2019-08-14] MEDS: POTASSIUM CHLORIDE 10 MEQ TABLET.ER PO SCH (00:57)
[2019-08-14] MEDS: CEFAZOLIN 1 GM/D5W RTU 1 GM/50 ML RTUPB IV SCH ×2 (00:58→05:40)
[2019-08-14 06:57] LABS: ABSOLUTE EOSINOPHILS # (AUTO) 0.1 10^3/uL (0.0-0.6); ABSOLUTE LYMPHOCYTES (AUTO) 1.5 10^3/uL (0.5-4.7); ABSOLUTE MONOCYTES (AUTO) 0.6 10^3/uL (0.1-1.4); ABSOLUTE NEUT (AUTO) 2.4 10^3/uL (1.7-8.2); BASOPHILS % (AUTO) 0.5 % (0-2); EOSINOPHILS % (AUTO) 2.3 % (0-6); HEMATOCRIT 29.4 % (36.0-47.0); HEMOGLOBIN 9.3 g/dL (12.0-15.5); LYMPHOCYTES % (AUTO) 32.2 % (13-45); MEAN CORPUSCULAR HEMOGLOBIN 23.4 pg (27.0-33.4); MEAN CORPUSCULAR HGB CONC 31.7 g/dL (32.0-36.0); MEAN CORPUSCULAR VOLUME 74 fl (80-97); MONOCYTES % (AUTO) 12.4 % (3-13); PLATELET COUNT 228 10^3/uL (150-450); RED BLOOD COUNT 3.99 10^6/uL (3.72-5.28); RED CELL DISTRIBUTION WIDTH 17.8 % (11.5-14.0); SEGMENTED NEUTROPHILS % (AUTO) 52.6 % (42-78); TOTAL CELLS COUNTED % (AUTO) 100 %; WHITE BLOOD COUNT 4.6 10^3/uL (4.0-10.5)
[2019-08-14 07:20] LABS: ANION GAP 8 (5-19); BLOOD UREA NITROGEN 23 mg/dL (7-20); CALCIUM 8.2 mg/dL (8.4-10.2); CARBON DIOXIDE 30 mmol/L (22-30); CHLORIDE 100 mmol/L (98-107); GLUCOSE 125 mg/dL (75-110); POTASSIUM 4.1 mmol/L (3.6-5.0)
[2019-08-14] MEDS: LEVALBUTEROL HCL NEB 1.25 MG/3 ML AMPUL NEB SCH ×2 (08:07→16:31)
[2019-08-14] MEDS ORDERED: MAGNESIUM SULFATE 4 GM/D5W 100 ML IV ONE (08:30)
--- NOTE | 2019-08-14 08:49 | PDOC PROGRESS REPORT ---
Subjective Progress Note for:: 08/14/19 Subjective:: MEGAN JUNG is a 78 year old female with history of coronary artery disease status post PCI to the OM with a 2.75 mm x 18 mm velocity stent on 01/14/02 and PCI with a Xience ENRIKE 3.0 mm x 18 mm to the LAD and Xience ENRIKE 2.25 mm x 28 mm to the OM on 03/25/13, paroxysmal atrial fibrillation anticoagulated with Xarelto, aortic root/proximal ascending aortic aneurysm, syncope without recent recurrences, hypertension, hyperlipidemia and diabetes who is consulted to our service for further evaluation and treatment of atrial fibrillation. Unfortunately, and for unknown reasons, she discontinued all of her cardiac medications several months ago and began noticing shortness of breath and palpitations particularly when walking reason why her atenolol and Eliquis were restarted. Unfortunately she then developed a UTI and her atrial fibrillation worsened. Rate controlled was restarted in the outpatient setting however a it was only partially effective. Over the past weekend her daughter contacting me via text message and stated that her mother was acting inappropriately and confused therefore she was instructed by me to report to in emergency room for further treatment. Upon initial evaluation she was obtunded and diagnosed with metabolic encephalopathy probably from her UTI. This morning the patient is found laying in bed with a CPAP machine on. She is asleep but easily arousable. She has no specific cardiac complaints and only wants to know when breakfast will be served. She is currently on a diltiazem drip. Her telemetry showed atrial fibrillation with an essentially controlled ventricular rate with short episodes of nonsustained VT versus aberrantly conducted beats. Of note, her echocardiogram in October 2018 demonstrated mildly dilated aortic root at 3.5 cm and mildly dilated proximal ascending aorta at 3.9 cm. Her Ziopatch in July 2018 demonstrated sinus bradycardia without complex dysrhythmias. Her Lexiscan MPS was repeated in September 2018 with normal results. Echocardiogram on 10/31/18: -LV is normal in size. -Concentric hypertrophy. -EF is 55%. -Indeterminate diastolic function the presence of A. fib. -Mild MAC without stenosis. -Mild MR, [id number] TR, trace PI. -Mildly dilated aortic root at 3.5 cm. -Mildly dilated proximal ascending aorta at 3.9 cm. -When compared to prior study in May 2018, the aortic root and proximal ascending aorta are stable in size. Lexiscan MPS in 09/28/18: -No evidence of ischemia or infarct. -Ejection fraction of 58%. Ziopatch 08/14/18 through 08/27/18: -Predominant rhythm is sinus bradycardia. -SVT 23 lasting up to 14 beats. -Events correlated with sinus bradycardia, PACs and PVCs. -Rare PACs and rare PVCs. -No malignant dysrhythmias or pauses. Reason For Visit: AFIB RVR, ENCEPHALOPATHY Physical Exam Vital Signs: Temp Pulse Resp BP Pulse Ox 97.6 F 111 H 13 113/70 97 08/14/19 04:12 08/14/19 04:12 08/14/19 04:12 08/14/19 04:12 08/14/19 04:12 Intake & Output 08/12/19 08/13/19 08/14/19 06:59 06:59 06:59 Intake Total 503 870 Output Total 600 Balance -97 870 Weight 78.8 kg General appearance: PRESENT: no acute distress, well-developed, well-nourished Head exam: PRESENT: atraumatic, normocephalic Eye exam: PRESENT: conjunctiva pink, EOMI, PERRLA. ABSENT: scleral icterus Neck exam: ABSENT: carotid bruit, JVD, lymphadenopathy, thyromegaly Respiratory exam: PRESENT: clear to auscultation deo. ABSENT: rales, rhonchi, wheezes Cardiovascular exam: PRESENT: irregular rhythm, tachycardia. ABSENT: gallop, systolic murmur Extremities exam: PRESENT: +1 edema Results Laboratory Results: 08/13/19 04:38 08/13/19 04:38 08/13/19 04:38 Sodium 137.8 Potassium 3.3 L D Chloride 103 Carbon Dioxide 27 Anion Gap 8 BUN 26 H Creatinine 1.06 Est GFR ( Amer) > 60 Glucose 91 Calcium 8.5 08/12/19 08/12/19 08/12/19 08:45 08:45 11:35 Creatine Kinase 146 H CK-MB (CK-2) 6.17 H Troponin I < 0.012 < 0.012 NT-Pro-B Natriuret Pep 6840 H Impressions: Chest X-Ray 08/12/19 00:00 IMPRESSION: Cardiomegaly, bilateral pleural effusions and bibasilar atelectasis. There are no findings of overt pulmonary edema. 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 Chronic microvascular ischemia. No acute intracranial imaging findings. EVIDENCE OF ACUTE STROKE: NO. Assessment & Plan - Diagnosis (1) Atrial fibrillation with RVR Plan: The patient is tolerating Lopressor 50 mg p.o. every 6 hours however her heart rate continues to be above her goal. Given her mild heart failure with bilateral pleural effusions I would like to continue avoiding calcium channel blockers therefore we will try digoxin daily.She is anticoagulated with Xarelto. Recommendations: -Continue with current dose of Lopressor. -Continue with anticoagulation. -Add digoxin 0.125 mg daily. -We will defer JUAN guided cardioversion until the patient's UTI is resolved. (2) Acute congestive heart failure Qualifiers: Heart failure type: systolic Qualified Code(s): I50.21 - Acute systolic (congestive) heart failure Is this a current diagnosis for this admission?: Yes Plan: Echocardiogram yesterday demonstrated an ejection fraction of 40% among other findings which is likely secondary to her rapid atrial fibrillation and not ischemia as demonstrated by the lack of ischemic symptoms and normal cardiac enzymes. Her echocardiogram in October 2018 at [facility] demonstrated an ejection fraction of 55%. Unfortunately she continues to be fluid overloaded. Recommendations: -Increase Lasix to 40 mg IV twice daily. -Replace potassium. -Limit fluid intake to 1500 mL daily. -Add ELVER inhibitor/ARB as permitted by blood pressure. -Low-sodium diet. (3) Diabetes mellitus type 2 in obese Is this a current diagnosis for this admission?: Yes Plan: Management is deferred to primary team. (4) Anemia Qualifiers: Anemia type: unspecified type Qualified Code(s): D64.9 - Anemia, unspecified Is this a current diagnosis for this admission?: Yes Plan: The patient's hemoglobin decreased approximately 1 g for unclear reasons. She denies overt bleeding however she is anticoagulated and I am concerned about the possibility of occult bleeding. Recommendations: -Anemia work-up per primary team. -Continue with anticoagulation for now however if there is worsening of her anemia or evidence of o bleeding it will be discontinued.
[2019-08-14] MEDS: INSULIN LISPRO 100 UNIT/ML 3 ML VIAL SUBCUT SCH ×3 (09:00→17:29)
[2019-08-14] MEDS ORDERED: FUROSEMIDE INJ/PF 20 MG/2 ML SDV IV SCH (10:00)
[2019-08-14] MEDS: CEPHALEXIN 500 MG CAPSULE PO SCH ×2 (11:17→13:15)
--- NOTE | 2019-08-14 17:11 | PDOC DISCHARGE SUMMARY ---
Impression - Admit/DC Date/PCP Admission Date/Primary Care Provider: 08/12/19 11:25 GIO ROSENTHAL DO Discharge Date: 08/14/19 - Discharge Diagnosis (1) Metabolic encephalopathy Is this a current diagnosis for this admission?: Yes (2) Persistent atrial fibrillation with rapid ventricular response Is this a current diagnosis for this admission?: Yes (3) Acute congestive heart failure Is this a current diagnosis for this admission?: Yes (4) Urinary tract infection Is this a current diagnosis for this admission?: Yes (5) Diabetes mellitus type 2 in obese Is this a current diagnosis for this admission?: Yes (6) Wheezing Is this a current diagnosis for this admission?: Yes (7) Acute hypercapnic respiratory failure Is this a current diagnosis for this admission?: Yes - Additional Information Resuscitation Status: Full Code Discharge Diet: Cardiac Discharge Activity: Activity As Tolerated, Balance Activity w/Rest, Weigh Daily Referrals: AZRA KAPOOR MD [ACTIVE PROVISIONAL STAFF] - 09/09/19 1:00 pm (Dr. Kapoor originally wanted to see pt. 08/16 but Tyra from his office said since he saw her at the hospital she doesn't think he wants to see pt earlier than 09/08. Tyra will speak with him 08/15 after he gets in the office to see if he wants to see pt. sooner.) GIO ROSENTHAL DO [Primary Care Provider] - 08/26/19 11:00 am Prescriptions: Cephalexin Monohydrate [Keflex 500 mg Capsule] 500 mg PO Q8 2 Days capsule Digoxin [Lanoxin 0.125 mg Tablet] 0.125 mg PO DAILY #20 tablet Furosemide [Lasix 40 mg Tablet] 40 mg PO QAM #30 tablet Metoprolol Tartrate [Lopressor 25 mg Tablet] 50 mg PO TID 20 Days tablet Magnesium Oxide [Mag-Ox 400 mg Tablet] 400 mg PO BID 15 Days #30 tab Rivaroxaban [Xarelto 10 mg Tablet] 20 mg PO WSUPPER 30 Days tablet Home Medications: Cephalexin Monohydrate [Keflex 500 mg Capsule] 500 mg PO Q8 2 Days capsule 08/14/19 Digoxin [Lanoxin 0.125 mg Tablet] 0.125 mg PO DAILY #20 tablet 08/14/19 Furosemide [Lasix 40 mg Tablet] 40 mg PO QAM #30 tablet 08/14/19 Magnesium Oxide [Mag-Ox 400 mg Tablet] 400 mg PO BID 15 Days #30 tab 08/14/19 Metoprolol Tartrate [Lopressor 25 mg Tablet] 50 mg PO TID 20 Days tablet 08/14/19 Rivaroxaban [Xarelto 10 mg Tablet] 20 mg PO WSUPPER 30 Days tablet 08/14/19 History of Present Illiness History of Present Illness: MEGAN JUNG is a 78 year old female with a history of persistent atrial fibrillation, who was sent into the hospital by her daughter and broadcasting equipment mechanic for evaluation of confusion and noted wheezing and shortness of breath. Patient currently is very somnolent and unable to partake much in the conversation. Much of the history obtained from patient's other daughter who does not live with patient and via phone call with Alyce. She informs me that patient was very confused since yesterday into this morning and texting several people inappropriately. Patient herself denies any weakness or new deficits. Patient's daughter states that she has been waxing and wanning in orientation for the past weak and getting worse. Also endorses she has poor sleep at night time. She denies any shortness of breath or chest pain. In the emergency department, patient was noted to be in A. fib with rapid ventricular response into the 130s. She was started on diltiazem drip and given some IV Lopressor. Subsequently referred to hospitalist service for admission. Patient did have a recent admission for atrial fibrillation with RVR and was discharged home on metoprolol tartrate 25 mg twice a day. Hospital Course Hospital Course: Patient was admitted for evaluation of confusion. She was noted to have metabolic encephalopathy initially. He was noted by family that she was not sleeping appropriately. Urinalysis from her recent ER visit also revealed UTI with positive bacterial urine culture. Patient was started on antibiotics with cefazolin later de-escalated to Keflex. Head CT was obtained which was negative. Patient's metabolic encephalopathy was thought to be secondary to UTI and sleep deprivation. Her metabolic encephalopathy resolved by the next day. Patient on admission was also found to be in persistent A. fib with rapid ventricular response and some evidence of congestive heart failure. It was believed that patient's acute congestive heart failure was secondary to her tachyarrhythmia. For A. fib, her Lopressor dose was increased to 50 mg every 6 hours she has been discharged on 50 mg 3 times daily. She was also started on Xarelto given elevated chads Vasc score. She was seen by her primary bi specialist Dr. Kapoor while in the hospital. She was also diuresed with IV Lasix. Echocardiogram revealed ejection fraction of 40% indicating very borderline systolic heart failure. She will be discharged with Lasix 40 mg daily. Regarding her A. fib, Petroleum Engineering Teacher also recommended starting on digoxin 0.125 mg daily which she has been discharged on. She will follow-up in the office with Dr. Kapoor next week for further management and has been recommended to have her digoxin level checked at that time. Patient's heart rate is now within 90s to 110 and on ambulation does not go above 120. Patient feels very well and denies any shortness of breath with SPO2 in the high 90s to 100 on room air. She has been discharged in stable condition to follow-up with Dr. Kapoor in the clinic next week. Physical Exam Vital Signs: Temp Pulse Resp BP Pulse Ox 97.5 F 104 H 20 114/69 98 08/14/19 10:48 08/14/19 14:00 08/14/19 10:48 08/14/19 10:48 08/14/19 10:48 Intake & Output 08/13/19 08/14/19 08/15/19 06:59 06:59 06:59 Intake Total 503 920 625 Output Total 600 Balance -97 920 625 Weight 78.8 kg 81.1 kg General appearance: PRESENT: no acute distress, cooperative Neck exam: ABSENT: JVD Cardiovascular exam: PRESENT: irregular rhythm Neurological exam: PRESENT: alert, awake, oriented to person, oriented to place, oriented to time, oriented to situation Results Laboratory Results: WBC 4.6 10^3/uL (4.0-10.5) 08/14/19 06:30 RBC 3.99 10^6/uL (3.72-5.28) 08/14/19 06:30 Hgb 9.3 g/dL (12.0-15.5) L 08/14/19 06:30 Hct 29.4 % (36.0-47.0) L 08/14/19 06:30 MCV 74 fl (80-97) L 08/14/19 06:30 MCH 23.4 pg (27.0-33.4) L 08/14/19 06:30 MCHC 31.7 g/dL (32.0-36.0) L 08/14/19 06:30 RDW 17.8 % (11.5-14.0) H 08/14/19 06:30 Plt Count 228 10^3/uL (150-450) 08/14/19 06:30 Lymph % (Auto) 32.2 % (13-45) 08/14/19 06:30 [place] % (Auto) 12.4 % (3-13) 08/14/19 06:30 Eos % (Auto) 2.3 % (0-6) 08/14/19 06:30 Baso % (Auto) 0.5 % (0-2) 08/14/19 06:30 Absolute Neuts (auto) 2.4 10^3/uL (1.7-8.2) 08/14/19 06:30 Absolute Lymphs (auto) 1.5 10^3/uL (0.5-4.7) 08/14/19 06:30 Absolute Monos (auto) 0.6 10^3/uL (0.1-1.4) 08/14/19 06:30 Absolute Eos (auto) 0.1 10^3/uL (0.0-0.6) 08/14/19 06:30 Absolute Basos (auto) 0.0 10^3/uL (0.0-0.2) 08/14/19 06:30 Seg Neutrophils % 52.6 % (42-78) 08/14/19 06:30 Carbonic Acid 1.65 mmol/L (1.05-1.35) H 08/12/19 13:45 HCO3/H2CO3 Ratio 16:1 08/12/19 13:45 ABG pH 7.32 (7.35-7.45) L 08/12/19 13:45 ABG pCO2 54.8 mmHg (35-45) H 08/12/19 13:45 ABG pO2 26.0 mmHg (80-100) L* 08/12/19 13:45 ABG HCO3 27.7 mmol/L (20-24) H 08/12/19 13:45 ABG Total CO2 29.3 mmol/L (21-25) H 08/12/19 13:45 ABG O2 Saturation 42.1 % (94-98) L 08/12/19 13:45 ABG Base Excess 0.9 mmol/L 08/12/19 13:45 FiO2 2L 08/12/19 13:45 Sodium 137.5 mmol/L (137-145) 08/14/19 06:30 Potassium 4.1 mmol/L (3.6-5.0) 08/14/19 06:30 Chloride 100 mmol/L (98-107) 08/14/19 06:30 Carbon Dioxide 30 mmol/L (22-30) 08/14/19 06:30 Anion Gap 8 (5-19) 08/14/19 06:30 BUN 23 mg/dL (7-20) H 08/14/19 06:30 Creatinine 1.16 mg/dL (0.52-1.25) 08/14/19 06:30 Est GFR ( Amer) 55 (>60) L 08/14/19 06:30 Est GFR (MDRD) Non-Af 45 (>60) L 08/14/19 06:30 Glucose 125 mg/dL (75-110) H 08/14/19 06:30 POC Glucose 166 mg/dL (70-110) H 08/14/19 10:58 Calcium 8.2 mg/dL (8.4-10.2) L 08/14/19 06:30 Magnesium 1.1 mg/dL (1.6-2.3) L* 08/14/19 06:30 Total Bilirubin 1.4 mg/dL (0.2-1.3) H 08/12/19 08:45 Direct Bilirubin 0.2 mg/dL (0.0-0.4) 08/12/19 08:45 Neonat Total Bilirubin Not Reportable 08/12/19 08:45 Neonat Direct Bilirubin Not Reportable 08/12/19 08:45 Neonat Indirect Bili Not Reportable 08/12/19 08:45 AST 75 U/L (14-36) H 08/12/19 08:45 ALT 50 U/L (<35) H 08/12/19 08:45 Alkaline Phosphatase 69 U/L (38-126) 08/12/19 08:45 Creatine Kinase 146 U/L (30-135) H 08/12/19 08:45 CK-MB (CK-2) 6.17 ng/mL (<4.55) H 08/12/19 08:45 Troponin I < 0.012 ng/mL 08/12/19 11:35 NT-Pro-B Natriuret Pep 6840 pg/mL (<450) H 08/12/19 11:35 Total Protein 6.4 g/dL (6.3-8.2) 08/12/19 08:45 Albumin 3.6 g/dL (3.5-5.0) 08/12/19 08:45 Urine Color YELLOW 08/12/19 11:20 Urine Appearance SLIGHTLY-CLOUDY 08/12/19 11:20 Urine pH 5.0 (5.0-9.0) 08/12/19 11:20 Ur Specific [place] 1.024 08/12/19 11:20 Urine Protein 100 mg/dL (NEGATIVE) H 08/12/19 11:20 Urine Glucose (UA) NEGATIVE mg/dL (NEGATIVE) 08/12/19 11:20 Urine Ketones TRACE mg/dL (NEGATIVE) H 08/12/19 11:20 Urine Blood NEGATIVE (NEGATIVE) 08/12/19 11:20 Urine Nitrite NEGATIVE (NEGATIVE) 08/12/19 11:20 Urine Bilirubin NEGATIVE (NEGATIVE) 08/12/19 11:20 Urine Urobilinogen 2.0 mg/dL (<2.0) H 08/12/19 11:20 Ur Leukocyte Esterase TRACE (NEGATIVE) H 08/12/19 11:20 Urine WBC (Auto) 5 /HPF 08/12/19 11:20 Urine RBC (Auto) 1 /HPF 08/12/19 11:20 U Hyaline Cast (Auto) 4 /LPF 08/12/19 11:20 Squamous Epi Cells Auto 1 /HPF 08/12/19 11:20 Urine Mucus (Auto) RARE /LPF 08/12/19 11:20 Urine Ascorbic Acid NEGATIVE (NEGATIVE) 08/12/19 11:20 08/12/19 08/12/19 08:45 11:35 CK-MB (CK-2) 6.17 H Troponin I < 0.012 < 0.012 NT-Pro-B Natriuret Pep 6840 H Impressions: Chest X-Ray 08/12/19 00:00 IMPRESSION: Cardiomegaly, bilateral pleural effusions and bibasilar atelectasis. There are no findings of overt pulmonary edema. 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 Chronic microvascular ischemia. No acute intracranial imaging findings. EVIDENCE OF ACUTE STROKE: NO. Plan Time Spent: Greater than 30 Minutes Stroke Is this a Stroke Patient?: No Acute Heart Failure - Is this a Heart Failure Patient?: Yes Documentation of LVEF assessment?: Yes LVEF < 40%?: No- if no continue to question #3 3. Anticoagulant therapy for permanect/persistent/paraoxysmal Afib or Aflutter: Yes Follow-up Appointment scheduled within 7 days?: Yes
[2019-08-14] MEDS: RIVAROXABAN 10 MG TABLET PO SCH (17:35)
--- NOTE | 2019-08-14 18:20 | EKG REPORT ---
SEVERITY:- ABNORMAL ECG - ATRIAL FIBRILLATION LEFT AXIS DEVIATION PROBABLE LVH WITH SECONDARY REPOL ABNRM PROLONGED QT INTERVAL : Confirmed by: Ami Bass MD 14-Aug-2019 18:20:05
[2019-08-14 18:41] VITALS: BP 122/81
== END 2019-08-14 19:14 | disposition home or self-care (01) | DRG 308 ==
LOC: ER 07:52 → EH 11:25 → 3W 18:27
PROVIDERS: ADMIT Internal Medicine; ATTEND Internal Medicine
PROC: 5A09457 Assistance with Respiratory Ventilation, 24-96 Consecutive Hours, Continuous Positive Airway Pressure (ICD-10-PCS; principal; 2019-08-12)
DX: I48.19 Other persistent atrial fibrillation (principal); G93.41 Metabolic encephalopathy; J96.02 Acute respiratory failure with hypercapnia; I50.41 Acute combined systolic (congestive) and diastolic (congestive) heart failure; N39.0 Urinary tract infection, site not specified; N30.00 Acute cystitis without hematuria; E11.9 Type 2 diabetes mellitus without complications; E66.9 Obesity, unspecified; I11.0 Hypertensive heart disease with heart failure; E78.5 Hyperlipidemia, unspecified; I25.10 Atherosclerotic heart disease of native coronary artery without angina pectoris; K21.9 Gastro-esophageal reflux disease without esophagitis; D64.9 Anemia, unspecified; F32.9 Major depressive disorder, single episode, unspecified; E78.00 Pure hypercholesterolemia, unspecified; I25.2 Old myocardial infarction; Z95.5 Presence of coronary angioplasty implant and graft; Z79.899 Other long term (current) drug therapy; Z79.01 Long term (current) use of anticoagulants; Z87.891 Personal history of nicotine dependence; Z88.8 Allergy status to other drugs, medicaments and biological substances
CPT/HCPCS: 36415; 36600; 70450; 71045; 71046; 80048; 80053; 81001; 82550; 82553; 82803; 82962; 83605; 83735; 83880; 84443; 84484; 85025; 85610; 87040; 87086; 87088; 87186; 93005; 93010; 93306; 94640; 94660; 96365; 96366; 96368; 96374; 96375; 96376; 99285; G0378; J0690; J0696; J1940; J3475; J3490; J7040